=== PATIENT | female | born 1960 | race Caucasian/White ===

== ENCOUNTER → 2020-02-27 13:54 | Outpatient (BNVA) | payer OTHER, SELFPAY | PROVIDERS: PCP Internal Medicine; Referring Provider Internal Medicine; Visit Provider Physician Assistant | DX: R74.8 Abnormal levels of other serum enzymes (principal); K80.20 Calculus of gallbladder without cholecystitis without obstruction | CPT/HCPCS: 99213 ==

== ENCOUNTER 2020-03-05 10:51 | Outpatient (REF) | payer OTHER, SELFPAY ==
[2020-03-05 13:41] LABS: Basophils Absolute Auto 0.1 X10*3/uL (0.0-0.2); Basophils Percent Auto 0.7 % (0-2); Eosinophils Absolute Auto 0.2 X10*3/uL (0.0-0.4); Eosinophils Percent Auto 2.5 % (0-4); Hematocrit 43.9 % (37-47); Hemoglobin 14.1 g/dl (12.0-16.0); Imm Gran Abs Auto 0.03 X10*3/uL (0.00-0.03); Imm Gran Pct Auto 0.4 % (0.0-0.4); Lymphocytes Absolute Auto 2.3 X10*3/uL (1.2-4.9); Lymphocytes Percent Auto 33.2 % (20-40); MANUAL DIFF FLAG NO; Mean Corpuscular HGB Conc 32.1 g/dl (31.0-35.0); Mean Corpuscular Hemoglobin 29.9 pg (27.0-33.0); Mean Platelet Volume 11.3 fL (9.4-12.3); Monocytes Absolute Auto 0.4 X10*3/uL (0.1-1.2); Monocytes Percent Auto 6.5 % (2-11); Neutrophils Absolute Auto 3.8 X10*3/uL (2.0-8.3); Neutrophils Percent Auto 56.7 % (45-73); Platelet Count 227 X10*3/uL (160-400); Red Blood Count 4.72 X10*6/uL (4.20-5.50); Red Cell Distribution Width 13.7 % (11.0-16.0); White Blood Count 6.8 X10*3/uL (4.8-10.8)
[2020-03-05 14:46] LABS: Alanine Aminotransferase 33 U/L (0-31); Alkaline Phosphatase 66 U/L (39-117); Anion Gap 14 (12-20); Aspartate Amino Transferase 25 U/L (5-31); Bilirubin Total 0.3 mg/dL (0.0-1.0); Blood Urea Nitrogen 13 mg/dL (9-16); Calcium 9.7 mg/dL (8.4-10.2); Carbon Dioxide 26 mmol/L (22-29); Chloride 104 mmol/L (96-108); Estimated Glomerular Filt Rate > 60; Glucose Random 105 mg/dL (60-115); Potassium 4.4 mmol/l (3.3-5.1); Sodium 140 mmol/L (135-145); Total Protein 6.6 g/dL (6.5-8.0)
[2020-03-06 10:27] LABS: CT PCR NOT DETECTED (Not Detect.); NG PCR NOT DETECTED (Not Detect.)
[2020-03-06 13:33] LABS: BV Int Neg Control Negative (Negative); BV Int Pos Control Positive (Positive)
[2020-03-08 13:02] LABS: Anti Nuclear Antibody Screen NEGATIVE (NEGATIVE)
[2020-03-08 14:56] LABS: ANA Additional Testing NOT INDICATED
== END 2020-03-05 10:52 | disposition home or self-care (01) ==
LOC: HO.LAB 10:51
PROVIDERS: Obstetrics & Gynecology; PCP Internal Medicine; Visit Provider Physician Assistant
DX: Z01.419 Encounter for gynecological examination (general) (routine) without abnormal findings (principal); L29.2 Pruritus vulvae; N39.41 Urge incontinence; R01.1 Cardiac murmur, unspecified
CPT/HCPCS: 36415; 80053; 85025; 86038; 86039; 87480; 87491; 87510; 87591; 87660

== ENCOUNTER → 2020-03-14 13:31 | Outpatient (BNVA) | payer OTHER, SELFPAY | PROVIDERS: PCP Internal Medicine; Referring Provider Internal Medicine; Visit Provider Student in an Organized Health Care Education/Training Program | DX: M19.90 Unspecified osteoarthritis, unspecified site (principal); M79.7 Fibromyalgia; R79.82 Elevated C-reactive protein (CRP); R20.0 Anesthesia of skin | CPT/HCPCS: 99212 ==

== ENCOUNTER 2020-03-26 12:05 | Outpatient (REF) | payer OTHER, SELFPAY ==
--- NOTE | 2020-03-26 12:09 | MM_ITS ---
EXAMINATION: MM SCREENING DIGITAL BREAST TOMOSYNTHESIS, BILATERAL CLINICAL INFORMATION: Screening. Asymptomatic. The lifetime risk of breast cancer based on the Tyrer-Cuzick Model is 10%. COMPARISON: Mammography: 02/17/2012 TECHNIQUE: Digital breast tomosynthesis is performed in both the craniocaudal and mediolateral oblique views along with computer-aided detection (CAD). Synthesized 2D images are generated from the tomosynthesis. FINDINGS: There are scattered areas of fibroglandular density (ACR BI-RADS breast composition Category b). There are no significant masses, abnormal calcifications, or other abnormalities. Parenchymal pattern is similar to prior exam. Again, there are small intramammary nodes posterior upper outer right breast. MM/MM tomosynthesis screening BI IMPRESSION: No mammographic evidence of malignancy. ASSESSMENT: BI-RADS 2: Benign RECOMMENDATION: Routine annual mammography screening. This patient's information was entered into a reminder system with a target due date for their next mammogram.
--- NOTE | 2020-03-26 13:09 | XR_ITS ---
EXAMINATION: XR LUMBOSACRAL SPINE CLINICAL INFORMATION: Pain and unspecified joint COMPARISON: 01/22/2015 TECHNIQUE: AP and lateral views of the lumbar spine and lateral view of the lumbosacral junction. FINDINGS: The transitional lumbosacral anatomy with a lumbarized S1 vertebra is not as well-seen on the current exam. Slight 3 mm retrolisthesis L3 on L4. There is subtle 2 mm grade 1 anterolisthesis of L4 on L5. This appearance is similar to the prior study. Vertebral body heights are maintained without compression fracture. Minimal loss of disc height at L5-S1. Severe lower lumbar facet arthropathy. Abdominal aortic vascular calcifications. XR/XR lumbar spine 2-3V IMPRESSION: Similar appearance of degenerative changes of the lower lumbar spine. No acute osseous abnormality.
== END 2020-03-26 12:06 | disposition home or self-care (01) ==
LOC: HO.MAMMO 12:05
PROVIDERS: Absent Provider Student in an Organized Health Care Education/Training Program; PCP Internal Medicine; Visit Provider Internal Medicine
DX: Z12.31 Encounter for screening mammogram for malignant neoplasm of breast (principal); M25.50 Pain in unspecified joint
CPT/HCPCS: 72100; 77063; 77067

== ENCOUNTER 2020-04-04 10:22 | Outpatient (REF) | payer OTHER, SELFPAY ==
--- NOTE | 2020-04-04 10:25 | EMG_ITS ---
Left tibial and peroneal motor studies were performed. Left sural and superficial peroneal sensory studies were performed. Tibial H-reflex was obtained and paraspinal and limb muscles were tested. IMPRESSION: Mild axonal sensory motor peripheral neuropathy with no evidence of radiculopathy. MD MEGAN Greene/MODL / [id number]
== END 2020-04-04 10:23 | disposition home or self-care (01) ==
LOC: HO.NEURO 10:22
PROVIDERS: Visit Provider Student in an Organized Health Care Education/Training Program
DX: R20.0 Anesthesia of skin (principal)
CPT/HCPCS: 95860; 95886; 95909; 95910

== ENCOUNTER → 2020-04-23 09:36 | Outpatient (BNVA) | payer OTHER, SELFPAY | PROVIDERS: Visit Provider Physician Assistant | DX: R74.8 Abnormal levels of other serum enzymes (principal) | CPT/HCPCS: 99212 ==

== ENCOUNTER → 2020-05-21 16:30 | Outpatient (BNVA) | payer OTHER, SELFPAY | PROVIDERS: PCP Internal Medicine; Visit Provider Student in an Organized Health Care Education/Training Program | DX: Z13.89 Encounter for screening for other disorder (principal) | CPT/HCPCS: Q3014 ==

== ENCOUNTER 2020-09-03 11:57 | Outpatient (REF) | payer OTHER, SELFPAY ==
[2020-09-03 14:03] LABS: MANUAL DIFF FLAG NO
[2020-09-03 14:08] LABS: Basophils Absolute Auto 0.1 X10*3/uL (0.0-0.2); Basophils Percent Auto 0.6 % (0-2); Eosinophils Absolute Auto 0.2 X10*3/uL (0.0-0.4); Eosinophils Percent Auto 2.4 % (0-4); Hematocrit 46.7 % (37-47); Imm Gran Abs Auto 0.02 X10*3/uL (0.00-0.03); Imm Gran Pct Auto 0.2 % (0.0-0.4); Lymphocytes Absolute Auto 2.8 X10*3/uL (1.2-4.9); Lymphocytes Percent Auto 35.1 % (20-40); Mean Corpuscular HGB Conc 32.1 g/dl (31.0-35.0); Mean Corpuscular Hemoglobin 28.8 pg (27.0-33.0); Mean Corpuscular Volume 89.6 fL (80-98); Mean Platelet Volume 10.9 fL (9.4-12.3); Monocytes Absolute Auto 0.4 X10*3/uL (0.1-1.2); Monocytes Percent Auto 5.3 % (2-11); Neutrophils Absolute Auto 4.5 X10*3/uL (2.0-8.3); Neutrophils Percent Auto 56.4 % (45-73); Platelet Count 141 X10*3/uL (160-400); Red Blood Count 5.21 X10*6/uL (4.20-5.50); Red Cell Distribution Width 13.7 % (11.0-16.0)
[2020-09-03 14:39] LABS: Alanine Aminotransferase 25 U/L (0-31); Albumin Level 4.3 g/dL (3.5-5.0); Alkaline Phosphatase 95 U/L (39-117); Anion Gap 17 (12-20); Aspartate Amino Transferase 20 U/L (5-31); Bilirubin Total 0.4 mg/dL (0.0-1.0); Blood Urea Nitrogen 16 mg/dL (9-16); Calcium 9.2 mg/dL (8.4-10.2); Carbon Dioxide 23 mmol/L (22-29); Chloride 106 mmol/L (96-108); Cholesterol 259 mg/dL; Estimated Glomerular Filt Rate > 60; Glucose Random 123 mg/dL (60-115); HDL Cholesterol 51 mg/dL; LDL Cholesterol Calculated 183 mg/dl; Potassium 4.5 mmol/L (3.3-5.1); Sodium 141 mmol/L (135-145); Total Protein 7.2 g/dL (6.5-8.0); Triglycerides 126 mg/dL
== END 2020-09-03 11:58 | disposition home or self-care (01) ==
LOC: HO.HMGCLDS 11:57
PROVIDERS: PCP Internal Medicine; Visit Provider Physician Assistant
DX: R10.11 Right upper quadrant pain (principal); R74.8 Abnormal levels of other serum enzymes; K76.0 Fatty (change of) liver, not elsewhere classified
CPT/HCPCS: 36415; 80053; 80061; 85025

== ENCOUNTER → 2020-09-04 12:33 | Outpatient (BNVA) | payer OTHER, SELFPAY | PROVIDERS: PCP Internal Medicine; Visit Provider Physician Assistant | DX: R74.8 Abnormal levels of other serum enzymes (principal); K76.0 Fatty (change of) liver, not elsewhere classified | CPT/HCPCS: Q3014 ==

== ENCOUNTER 2020-12-19 14:44 | Outpatient (REF) | payer OTHER, SELFPAY ==
--- NOTE | ~2020-12-19 | XR_ITS ---
EXAMINATION: XR KNEE, RIGHT CLINICAL INFORMATION: Right knee pain. COMPARISON: 06/02/2019 TECHNIQUE: 3 views of the right knee. FINDINGS: There is no evidence of acute fracture or dislocation of the right knee. No right knee effusion appreciated. Right knee joint spaces are maintained. There is minor spurring undersurface of the patella about the medial and lateral facets. XR/XR knee RT 3V IMPRESSION: Mild degenerative change patellofemoral joint.
== END 2020-12-19 14:45 | disposition home or self-care (01) ==
LOC: HO.XRAY 14:44
PROVIDERS: PCP Internal Medicine; Visit Provider Student in an Organized Health Care Education/Training Program
DX: M79.7 Fibromyalgia (principal); M25.561 Pain in right knee; M25.50 Pain in unspecified joint; Z79.899 Other long term (current) drug therapy
CPT/HCPCS: 73562; 99212

== ENCOUNTER 2021-02-07 11:01 | Outpatient (REF) | payer OTHER, SELFPAY ==
[2021-02-07 14:05] LABS: Imm Gran Abs Auto 0.02 X10*3/uL (0.00-0.03); Imm Gran Pct Auto 0.3 % (0.0-0.4); MANUAL DIFF FLAG SCAN; PLT CLUMP 1; SCAN SMEAR FLAG 1
[2021-02-07 14:06] LABS: Basophils Absolute Auto 0.1 X10*3/uL (0.0-0.2); Basophils Percent Auto 0.7 % (0-2); Eosinophils Absolute Auto 0.2 X10*3/uL (0.0-0.4); Eosinophils Percent Auto 2.8 % (0-4); Hematocrit 44.9 % (37-47); Hemoglobin 14.3 g/dl (12.0-16.0); Lymphocytes Absolute Auto 1.9 X10*3/uL (1.2-4.9); Lymphocytes Percent Auto 25.9 % (20-40); Mean Corpuscular HGB Conc 31.8 g/dl (31.0-35.0); Mean Corpuscular Hemoglobin 28.8 pg (27.0-33.0); Mean Corpuscular Volume 90.5 fL (80-98); Monocytes Absolute Auto 0.4 X10*3/uL (0.1-1.2); Monocytes Percent Auto 4.8 % (2-11); Neutrophils Absolute Auto 4.8 X10*3/uL (2.0-8.3); Neutrophils Percent Auto 65.5 % (45-73); Red Blood Count 4.96 X10*6/uL (4.20-5.50); Red Cell Distribution Width 13.9 % (11.0-16.0); White Blood Count 7.3 X10*3/uL (4.8-10.8)
[2021-02-07 14:11] LABS: Estimated Average Glucose 126 mg/dL; Hemoglobin A1C 152.0519 umol/L
[2021-02-07 14:16] LABS: Alanine Aminotransferase 26 U/L (0-31); Albumin Level 4.2 g/dL (3.5-5.0); Alkaline Phosphatase 80 U/L (39-117); Anion Gap 13 (12-20); Aspartate Amino Transferase 21 U/L (5-31); Bilirubin Direct < 0.2 mg/dL (0.0-0.5); Bilirubin Total 0.4 mg/dL (0.0-1.0); Blood Urea Nitrogen 12 mg/dL (9-16); Calcium 9.7 mg/dL (8.4-10.2); Carbon Dioxide 25 mmol/L (22-29); Chloride 108 mmol/L (96-108); Cholesterol 248 mg/dL; Estimated Glomerular Filt Rate > 60; Glucose Fasting 121 mg/dL (60-99); HDL Cholesterol 50 mg/dL; Iron 63 mcg/dL (30-160); LDL Cholesterol Calculated 177 mg/dl; Percent Iron Saturation 23 % (15-50); Potassium 4.3 mmol/L (3.3-5.1); Sodium 142 mmol/L (135-145); Total Iron Binding Capacity 277 mcg/dL (228-428); Triglycerides 109 mg/dL; Unsaturated Iron Binding 214 ug/dL
[2021-02-07 14:39] LABS: Vitamin D 25-OH Total 29.9 ng/mL (>30)
[2021-02-07 15:14] LABS: SLIDE REVIEW VERIFIED
[2021-02-15 19:02] LABS: FIB-ALT 22 U/L (6-29); FIB-Alpha-2-Macroglobulin 259 mg/dL (106-279); FIB-Apolipoprotein A1 146 mg/dL (101-198); FIB-GGT 13 U/L (3-65); FIB-Haptoglobin 249 mg/dL (43-212); FIB-Total Bilirubin 0.3 mg/dL (0.2-1.2); Liver Fibrosis Score 0.13; Liver Fibrosis Stage F0; Nec Inflam Act Grade A0; Nec Inflam Act Score 0.07
== END 2021-02-07 11:02 | disposition home or self-care (01) ==
LOC: HO.HMGCLDS 11:01
PROVIDERS: PCP Internal Medicine; Visit Provider Physician Assistant
DX: R10.11 Right upper quadrant pain (principal); E66.01 Morbid (severe) obesity due to excess calories; E78.5 Hyperlipidemia, unspecified; I10 Essential (primary) hypertension; K76.0 Fatty (change of) liver, not elsewhere classified; R73.01 Impaired fasting glucose; Z78.0 Asymptomatic menopausal state; R74.8 Abnormal levels of other serum enzymes; R74.01 Elevation of levels of liver transaminase levels; B19.20 Unspecified viral hepatitis C without hepatic coma
CPT/HCPCS: 36415; 80048; 80061; 80076; 81596; 82306; 83036; 83540; 85025

== ENCOUNTER → 2021-02-11 09:25 | Outpatient (BNVA) | payer OTHER, SELFPAY | PROVIDERS: PCP Internal Medicine; Referring Provider Internal Medicine; Visit Provider Physician Assistant | DX: Z13.89 Encounter for screening for other disorder (principal) | CPT/HCPCS: Q3014 ==

== ENCOUNTER → 2021-08-11 14:27 | Outpatient (BNVA) | payer OTHER, SELFPAY | PROVIDERS: PCP Internal Medicine; Referring Provider Internal Medicine; Visit Provider Physician Assistant | DX: Z12.11 Encounter for screening for malignant neoplasm of colon (principal); K76.0 Fatty (change of) liver, not elsewhere classified | CPT/HCPCS: 99212 ==

== ENCOUNTER 2021-08-22 16:44 | Emergency (ER) | payer OTHER, SELFPAY ==
--- NOTE | ~2021-08-22 | XR_ITS ---
EXAMINATION: XR chest 1V CLINICAL INFORMATION: Reason for Exam chest pain COMPARISON: Chest radiograph 01/11/2020 TECHNIQUE: One view of the chest XR/XR chest 1V FINDINGS/IMPRESSION: Clear lungs. No pneumothorax. No pleural effusion. Normal cardiomediastinal silhouette.
--- NOTE | ~2021-08-22 | US_ITS ---
EXAMINATION: US VENOUS ULTRASOUND WITH DOPPLER LOWER EXTREMITY, BILATERAL CLINICAL INFORMATION: Pain, swelling COMPARISON: None TECHNIQUE: Ultrasound of the deep veins is performed from the hip to the calf with compression sonography and color and pulse Doppler assessment. Spectral analysis with color-flow imaging is performed. FINDINGS: RIGHT: There is normal venous compression and respiratory variation and augmented flow. The visualized common femoral vein, superficial femoral vein, profunda femoral vein, popliteal vein, and the trifurcation region shows no evidence of deep venous thrombosis. There is no significant popliteal fossa cyst. LEFT: There is normal venous compression and respiratory variation and augmented flow. The visualized common femoral vein, superficial femoral vein, profunda femoral vein, popliteal vein, and the trifurcation region shows no evidence of deep venous thrombosis. There is no significant popliteal fossa cyst. If the patient's symptoms persist, followup ultrasound in 5 days 7 days might be of value to exclude proximal propagation from a non-visualized calf vein. US/US venous duplex LE BI IMPRESSION: No DVT demonstrated in the bilateral lower extremities.
--- NOTE | 2021-08-22 17:06 | ECG_ITS ---
Test Reason : CHEST TIGHTNESS Blood Pressure : / mmHG Vent. Rate : 092 BPM Atrial Rate : 092 BPM P-R Int : 140 ms QRS Dur : 076 ms QT Int : 356 ms P-R-T Axes : 029 -09 064 degrees QTc Int : 440 ms Normal sinus rhythm Normal ECG When compared with ECG of 27-SEP-2017 19:47, No significant change was found Referred By: Generic ED Physician Electronically Signed By:ELMA AUSTIN MD
[2021-08-22 17:09] VITALS: BP 154/89; PULSE 92; RESP 22; TEMP 36.1; O2SAT 96; BMI 42.9
[2021-08-22 17:47] LABS: MANUAL DIFF FLAG NO
[2021-08-22 17:49] LABS: Appearance Urine CLEAR; Color Urine STRAW; Glucose Urine UA NEG (NEG); Leukocyte Esterase Urine NEG (NEG); Nitrite Urine NEG (NEG); Specific Gravity - Urine <= 1.005 (1.005-1.025); Urine Blood NEG (NEG); Urine Ketones NEG (NEG); Urine Protein NEG (NEG-TRACE)
[2021-08-22 18:04] LABS: Basophils Absolute Auto 0.1 X10*3/uL (0.0-0.2); Basophils Percent Auto 0.6 % (0-2); Eosinophils Absolute Auto 0.2 X10*3/uL (0.0-0.4); Eosinophils Percent Auto 2.1 % (0-4); Hematocrit 46.1 % (37.0-47.0); Hemoglobin 14.7 g/dl (12.0-16.0); Imm Gran Abs Auto 0.07 X10*3/uL (0.00-0.03); Imm Gran Pct Auto 0.8 % (0.0-0.4); Lymphocytes Absolute Auto 2.4 X10*3/uL (1.2-4.9); Lymphocytes Percent Auto 28.1 % (20-40); Mean Corpuscular HGB Conc 31.9 g/dl (31.0-35.0); Mean Corpuscular Hemoglobin 28.5 pg (27.0-33.0); Mean Corpuscular Volume 89.3 fL (80.0-98.0); Mean Platelet Volume 10.3 fL (9.4-12.3); Monocytes Absolute Auto 0.5 X10*3/uL (0.1-1.2); Monocytes Percent Auto 5.8 % (2-11); Neutrophils Absolute Auto 5.4 x10*3/uL (2.0-8.3); Neutrophils Percent Auto 62.6 % (45-73); Platelet Count 199 X10*3/uL (160-400); Red Blood Count 5.16 X10*6/uL (4.20-5.50); Red Cell Distribution Width 13.6 % (11.0-16.0); White Blood Count 8.6 X10*3/uL (4.8-10.8)
[2021-08-22 18:13] LABS: Anion Gap 15 (12-20); Blood Urea Nitrogen 15 mg/dL (9-16); Calcium 9.8 mg/dL (8.4-10.2); Carbon Dioxide 29 mmol/L (22-29); Chloride 99 mmol/L (96-108); Creatinine Clr Calc Pharmacy 100.7; Estimated Glomerular Filt Rate > 60; Glucose Random 126 mg/dL (60-115); Sodium 139 mmol/L (135-145)
[2021-08-22 18:16] LABS: Bacteria Urine 1+ /LPF; RBC Urine 0 /HPF (0); Squamous Epithelial Cell Urine 1+ /LPF; WBC Urine 0-2 /HPF (0-4)
[2021-08-22 18:21] LABS: Troponin-I High Sensitivity < 3.5 ng/L (<3.5-17.0)
--- NOTE | 2021-08-22 22:34 | ED.CHESTPAIN ---
HPI - Chest Pain General Chief Complaint: Chest Pain Stated Complaint: tightness in chest and swollen legs Time Seen by Provider: 08/22/21 22:34 Source: patient Mode of arrival: ambulatory Limitations: no limitations History of Present Illness HPI narrative: very stressed out, tried to take extra dose of HCTZ to get swelling off it didn't help MD complaint: chest pain (tightness, lower leg swelling) Pertinent past history: other (mom is sick she is taking care of her has to walk a lot more) Onset (ago): day(s) (2) Timing of current episode: constant Prior episodes: No Onset: during rest Pain location: substernal Pain radiation: none Severity: mild Quality: tightness Relieving factors: nothing Exacerbating factors: stress Context: other (mom is sick has to walk a lot more and be on her feet) Associated symptoms: leg swelling Treatment prior to arrival: other (HCTZ 50mg) Related Data Home Medications Medication Instructions Recorded Confirmed milk thistle 150 mg capsule 300 mg PO DAILY 04/23/20 02/11/21 Previous Rx's Medication Instructions Recorded triamcinolone acetonide 0.1 % 1 applic TOPICAL BID #15 g 03/05/20 topical ointment cholecalciferol (vitamin D3) 1,250 1,250 mcg PO QWEEK #12 cap 02/19/21 mcg (50,000 unit) capsule ibuprofen 600 mg tablet 600 mg PO Q8H PRN #30 tab 03/17/21 tramadol 50 mg tablet 50 mg PO TID #90 tab 07/16/21 hydrochlorothiazide 25 mg tablet 25 mg PO DAILY #90 tab 07/29/21 zolpidem 10 mg tablet 10 mg PO BEDTIME PRN #30 tab 07/30/21 furosemide 20 mg tablet (Lasix) 20 mg PO DAILY 3 Days #3 tab 08/23/21 hydrocortisone 1 % topical cream 1 appl TOPICAL TID PRN #28.35 g 08/23/21 (Anti-Itch (hydrocortisone)) Allergies Allergy/AdvReac Type Severity Reaction Status Date / Time naproxen [Naproxen] Allergy Unknown joint pain Verified 08/11/21 14:29 Clindamycin HCl AdvReac Unknown diarrhea Verified 08/11/21 14:29 penicillin V AdvReac Unknown yeast Verified 08/11/21 14:29 infections Review of Systems Review of Systems: Constitutional : No Weight loss, No Fever, No Chills ENT/Mouth : No sore throat, No Rhinorrhea Eyes: No Eye Pain, No Swelling Cardiovascular : pos Chest Pain, no SOB, no Dyspnea on Exertion, No Orthopnea, pos Edema, No Palpitations Respiratory : No Cough, No Sputum Gastrointestinal : no Nausea, No Vomiting, No Diarrhea, No abdominal Pain, No Hematochezia, No Melena Genitourinary : No Dysuria, No Urinary Frequency Musculoskeletal : No joint pain, No Myalgias, No Joint Swelling Skin : No Skin Lesions, No rash Neuro : No Weakness, No Numbness, No Dizziness, No Headache Psych : No Anxiety/Panic, No Depression Heme/Lymph: No Bruising, No Lymphadenopathy Endocrine : No Polyuria, No Polydipsia All other systems reviewed and are negative [facility] Past Medical History Attestation statement: The following information was validated with the patient. Medical History Arthritis Carpal tunnel syndrome Depression with anxiety Dyslipidemia Ectopic Elevated C-reactive protein (CRP) Elevated liver enzymes Fibromyalgia HTN (hypertension) Impaired fasting glucose Morbid obesity due to excess calories Sciatica Surgical History History of appendectomy History of carpal tunnel surgery of right wrist Family History Family History Father HTN (hypertension) Heart disease Mother HTN (hypertension) [place] Brother Substance use disorder Social History Social History Household Members: Spouse Housing: House Alcohol intake: current Alcohol intake frequency: holidays/special occasions only Patient Tobacco Use Status: Former Tobacco user Tobacco use type: Cigarette e-Cigarette/Vaping Use: Never Used Second Hand Smoke Exposure: No Advance Directives: No Advance Directives Information Provided: Yes Current occupational status: employed and disabled 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 Oriented X3. No acute distress. Anxious Eyes: Pupils equal, round and reactive to light. ENT: Pharynx normal. Neck: Normal inspection. Neck supple. CVS: Normal heart rate and rhythm. Pulses normal. Respiratory: No respiratory distress. Breath sounds normal. Abdomen: Soft and non-tender. Skin: Skin warm and dry. Normal skin color. Normal skin turgor. Extremities: trace pitting lower extremity edema. No calf ttp Neuro: Oriented X 3. No motor deficit. No sensory deficit. Course Course Course Narrative: two troponins negative, BNP negative, US negative stable for DC prior to DC c/o axilla rash itchy and red from new deodorant mild both axilla - contact dermatitis will Rx ointment MDM - Chest Pain MDM Narrative Medical decision making narrative: 61 yo female with hx of anxiety, HLD, fatty liver, HTN here with c/o 2 days of chest tightness, stress, LE edema from walking a lot at this time - her chest pain is tightness her initial EKG is normal and trop is negative, will obtain repeat troponin and BNP though I suspect her LE edema is from increased walking which is new for her. She is in no distress at this time. Will obtain US to r/o DVT though again likely due to new walking. Her chest pain not worsened with exertion. Dispo per results and repeat trop/DVT study. Will DC home with a few doses of lasix. Lab Data Result diagrams: 08/22/21 17:22 08/22/21 17:22 Labs: Lab Results 08/22/21 08/22/21 08/22/21 Range/Units 17:22 17:22 17:22 WBC 8.6 (4.8-10.8) X10*3/uL RBC 5.16 (4.20-5.50) X10*6/uL Hgb 14.7 (12.0-16.0) g/dl Hct 46.1 (37.0-47.0) % MCV 89.3 (80.0-98.0) fL MCH 28.5 (27.0-33.0) pg MCHC 31.9 (31.0-35.0) g/dl RDW 13.6 (11.0-16.0) % Plt Count 199 (160-400) X10*3/uL MPV 10.3 (9.4-12.3) fL Immature Gran % (Auto) 0.8 H (0.0-0.4) % Neut % (Auto) 62.6 (45-73) % Lymph % (Auto) 28.1 (20-40) % Gregg % (Auto) 5.8 (2-11) % Eos % (Auto) 2.1 (0-4) % Baso % (Auto) 0.6 (0-2) % Lymph # (Auto) 2.4 (1.2-4.9) X10*3/uL Gregg # (Auto) 0.5 (0.1-1.2) X10*3/uL Eos # (Auto) 0.2 (0.0-0.4) X10*3/uL Baso # (Auto) 0.1 (0.0-0.2) X10*3/uL Abs Immat Gran (auto) 0.07 H (0.00-0.03) X10*3/uL Absolute Neuts (auto) 5.4 (2.0-8.3) x10*3/uL Absolute Nucleated RBC 0.000 (0.0-0.012) X10*3/uL Nucleated RBC % (auto) 0.0 (0.0-0.2) /100WBC Sodium 139 (135-145) mmol/L Potassium 4.0 (3.3-5.1) mmol/L Chloride 99 (96-108) mmol/L Carbon Dioxide 29 (22-29) mmol/L Anion Gap 15 (12-20) BUN 15 (9-16) mg/dL Creatinine 0.75 (0.5-1.4) mg/dL Estim Creat Clear Calc 100.7 Estimated GFR > 60 Random Glucose 126 H (60-115) mg/dL Calcium 9.8 (8.4-10.2) mg/dL Troponin I High Sens < 3.5 (<3.5-17.0) ng/L B-Natriuretic Peptide (<100) pg/mL Urine Color Urine Appearance Urine pH (5.0-8.0) Ur Specific [place] (1.005-1.025) Urine Protein (NEG-TRACE) MG/DL Urine Glucose (UA) (NEG) MG/DL Urine Ketones (NEG) MG/DL Urine Blood (NEG) Urine Nitrite (NEG) Ur Leukocyte Esterase (NEG) Urine RBC (0) /HPF Urine WBC (0-4) /HPF Ur Squamous Epith Cells /LPF Urine Bacteria /LPF 08/22/21 08/22/21 Range/Units 17:32 23:31 WBC (4.8-10.8) X10*3/uL RBC (4.20-5.50) X10*6/uL Hgb (12.0-16.0) g/dl Hct (37.0-47.0) % MCV (80.0-98.0) fL MCH (27.0-33.0) pg MCHC (31.0-35.0) g/dl RDW (11.0-16.0) % Plt Count (160-400) X10*3/uL MPV (9.4-12.3) fL Immature Gran % (Auto) (0.0-0.4) % Neut % (Auto) (45-73) % Lymph % (Auto) (20-40) % Gregg % (Auto) (2-11) % Eos % (Auto) (0-4) % Baso % (Auto) (0-2) % Lymph # (Auto) (1.2-4.9) X10*3/uL Gregg # (Auto) (0.1-1.2) X10*3/uL Eos # (Auto) (0.0-0.4) X10*3/uL Baso # (Auto) (0.0-0.2) X10*3/uL Abs Immat Gran (auto) (0.00-0.03) X10*3/uL Absolute Neuts (auto) (2.0-8.3) x10*3/uL Absolute Nucleated RBC (0.0-0.012) X10*3/uL Nucleated RBC % (auto) (0.0-0.2) /100WBC Sodium (135-145) mmol/L Potassium (3.3-5.1) mmol/L Chloride (96-108) mmol/L Carbon Dioxide (22-29) mmol/L Anion Gap (12-20) BUN (9-16) mg/dL Creatinine (0.5-1.4) mg/dL Estim Creat Clear Calc Estimated GFR Random Glucose (60-115) mg/dL Calcium (8.4-10.2) mg/dL Troponin I High Sens < 3.5 (<3.5-17.0) ng/L B-Natriuretic Peptide 15 (<100) pg/mL Urine Color STRAW Urine Appearance CLEAR Urine pH 7.0 (5.0-8.0) Ur Specific [place] <= 1.005 (1.005-1.025) Urine Protein NEG (NEG-TRACE) MG/DL Urine Glucose (UA) NEG (NEG) MG/DL Urine Ketones NEG (NEG) MG/DL Urine Blood NEG (NEG) Urine Nitrite NEG (NEG) Ur Leukocyte Esterase NEG (NEG) Urine RBC 0 (0) /HPF Urine WBC 0-2 (0-4) /HPF Ur Squamous Epith Cells 1+ /LPF Urine Bacteria 1+ /LPF ECG Data ECG #1: Attestation: I personally reviewed and interpreted this ECG as follows: ECG interpretation date: 08/22/21 ECG interpretation time: 22:35 Interpretation: Rate: 92 Rhythm: NSR [place]: left Normal P waves. Normal BEAU. Normal QRS complex. ST T wave : no STACY, inverted aVL qTC: normal prior studies: no change from 2018 The study has been interpreted contemporaneously by me. . Discharge Plan Discharge Clinical Impression: Atypical chest pain, Leg edema Patient Disposition: Home, Self-Care Instructions: Chest Pain (ED), Edema (ED) Additional Instructions: return to ED for any worsening symptoms or concerns no DVT (blood clot) xray normal, EKG and two blood tests for heart were normal, heart failure markers were normal Prescriptions: New furosemide [Lasix] 20 mg tablet 20 mg PO DAILY 3 Days Qty: 3 0RF hydrocortisone [Anti-Itch (HC)] 1 % cream 1 appl topical TID PRN (Reason: rash) Qty: 28.35 0RF No Action cholecalciferol (vitamin D3) 1,250 mcg (50,000 unit) capsule 1,250 mcg PO QWEEK Qty: 12 0RF tramadol 50 mg tablet 50 mg PO TID Qty: 90 1RF hydrochlorothiazide 25 mg tablet 25 mg PO DAILY Qty: 90 3RF zolpidem 10 mg tablet 10 mg PO BEDTIME PRN (Reason: insomnia) Qty: 30 0RF ibuprofen 600 mg tablet 600 mg PO Q8H PRN (Reason: joint pain) Qty: 30 1RF triamcinolone acetonide 0.1 % ointment 1 applic topical BID Qty: 15 0RF milk thistle 150 mg capsule 300 mg PO DAILY 0RF Rx Instructions: give with meal/snack Referrals: Saige Grewal MD [Primary Care Provider] - 3 days (if not better) Discharge Date/Time: 08/23/21 00:17
[2021-08-22 22:43] VITALS: BP 142/64; PULSE 86; RESP 16; TEMP 36.8; O2SAT 96
[2021-08-22 23:32] VITALS: BP 145/69; PULSE 86; RESP 14; O2SAT 96
[2021-08-22 23:58] LABS: B Type Natriuretic Peptide 15 pg/mL (<100); Troponin-I High Sensitivity < 3.5 ng/L (<3.5-17.0)
== END 2021-08-23 00:17 | disposition home or self-care (01) ==
PROVIDERS: Emergency Provider Emergency Medicine; PCP Internal Medicine
DX: R07.89 Other chest pain (principal); R60.0 Localized edema; Z79.899 Other long term (current) drug therapy; Z87.891 Personal history of nicotine dependence
CPT/HCPCS: 36415; 71045; 80048; 81001; 83880; 84484; 85025; 93005; 93970; 99284

== ENCOUNTER → 2021-08-25 14:13 | Outpatient (BNVA) | payer OTHER, SELFPAY | PROVIDERS: PCP Internal Medicine; Visit Provider Nurse Practitioner Family | DX: M25.561 Pain in right knee (principal); M79.7 Fibromyalgia | CPT/HCPCS: 99212 ==

== ENCOUNTER → 2021-09-29 12:30 | Outpatient (BNVA) | payer OTHER, SELFPAY | PROVIDERS: PCP Internal Medicine; Visit Provider Orthopaedic Surgery | DX: M25.561 Pain in right knee (principal); R73.01 Impaired fasting glucose | CPT/HCPCS: 20610; 99212; J1100 ==

== ENCOUNTER 2021-12-02 10:25 | Outpatient (REF) | payer OTHER, SELFPAY ==
--- NOTE | ~2021-12-02 | US_ITS ---
EXAMINATION: US COMPLETE ABDOMEN WITH LIVER ELASTOGRAPHY CLINICAL INFORMATION: Elevated LFTs. COMPARISON: Ultrasound of the abdomen 01/11/2020. TECHNIQUE: Real-time imaging of the abdominal viscera. Noninvasive ultrasound liver fibrosis assessment is performed using Lynn ElastPQ point quantification shear wave elastography (2D-SWE) with a C5-2 MHz transducer. Multiple elastography samples are obtained. FINDINGS: PANCREAS: The visualized pancreatic head and body are normal in appearance. The remainder of the pancreas is obscured from visualization by the overlying bowel gas. ABDOMINAL AORTA: The proximal, middle, and distal aortic segments are normal in caliber. INFERIOR VENA CAVA: Visualized portions are normal. LIVER: The liver demonstrates normal size, contour and increased echogenicity. No focal lesion or intrahepatic biliary duct dilatation. The right lobe measures 16.3 cm in length. The left lobe measures 8.8 cm in length. Portal flow is hepatopetal. Shear wave liver elastography median stiffness is 1.42 m/s (reference: normal median stiffness is 1.3 m/s or less). IQR/median stiffness to assess sampling precision is 0.14 (reference: good quality data set is IQR/median stiffness of 0.15 or less). GALLBLADDER: There are multiple mobile echogenic gallstones without wall thickening or pericholecystic fluid collection. COMMON BILE DUCT: Normal in caliber measuring 0.3 cm in diameter. RIGHT KIDNEY: Normal. No hydronephrosis. No renal calculi or focal parenchymal lesions. The kidney measures 11.9 cm in maximum dimension. There is likely duplex collecting system. LEFT KIDNEY: Normal. No hydronephrosis. No renal calculi or focal parenchymal lesions. The kidney measures 12.9 cm in maximum dimension. There is likely duplex collecting system. SPLEEN: Normal. The spleen measures 10.4 cm in maximum dimension. FREE FLUID: None. US/US abdomen comp w elastography IMPRESSION: Hepatic steatosis without focal lesion. Cholelithiasis without wall thickening. Bilateral duplex renal collecting system. Liver elastography: Median liver stiffness 1.42 m/s corresponding to cACLD (ruled out). REFERENCE: Society of Radiologists in Ultrasound Liver Stiffness Thresholds (2019): LIVER STIFFNESS THRESHOLDS: *Liver Stiffness equal or less than 1.3 m/s: High probability of being normal. *Liver Stiffness less than 1.7 m/s: In the absence of other known clinical signs, rules out compensated advanced chronic liver disease. *Liver Stiffness 1.7-2.1 m/s: Suggestive of compensated advanced chronic liver disease but need further test for confirmation. *Liver Stiffness over 2.1 m/s: Rules in compensated advanced chronic liver disease. *Liver Stiffness over 2.4 m/s: Suggestive of clinically significant portal hypertension. QUALITY OF DATA SET: *IQR/Median value equal or less than 0.15 implies a quality data set. *IQR/Median value over 0.15 implies a poor quality data set. SIGNIFICANT CHANGE FROM PRIOR EXAM: Significant change if liver stiffness measurement is 10% or greater from prior exam. OTHER CONSIDERATIONS: The stage of liver fibrosis may be overestimated in the setting of acute hepatitis, liver inflammation, elevated liver function tests, hepatic vascular congestion, obstructive cholestasis, non-fasting state, and infiltrative diseases such as amyloidosis and lymphoma. In some patients with NAFLD, the liver stiffness thresholds for compensated advanced chronic liver disease may be lower. In causes other than viral hepatitis and NAFLD, liver stiffness thresholds are not well established.
== END 2021-12-02 10:26 | disposition home or self-care (01) ==
LOC: HO.US 10:25
PROVIDERS: Visit Provider Physician Assistant
DX: R74.8 Abnormal levels of other serum enzymes (principal); Z12.11 Encounter for screening for malignant neoplasm of colon
CPT/HCPCS: 76705; 76981

== ENCOUNTER 2022-02-13 12:54 | Outpatient (REF) | payer OTHER, SELFPAY ==
[2022-02-13 14:03] LABS: MANUAL DIFF FLAG NO
[2022-02-13 14:20] LABS: Basophils Percent Auto 0.6 % (0-2); Eosinophils Absolute Auto 0.2 X10*3/uL (0.0-0.4); Eosinophils Percent Auto 2.4 % (0-4); Hematocrit 43.2 % (37.0-47.0); Hemoglobin 13.8 g/dl (12.0-16.0); Imm Gran Abs Auto 0.02 X10*3/uL (0.00-0.03); Imm Gran Pct Auto 0.3 % (0.0-0.4); Lymphocytes Absolute Auto 2.1 X10*3/uL (1.2-4.9); Lymphocytes Percent Auto 30.3 % (20-40); Mean Corpuscular HGB Conc 31.9 g/dl (31.0-35.0); Mean Corpuscular Hemoglobin 28.7 pg (27.0-33.0); Mean Corpuscular Volume 89.8 fL (80.0-98.0); Monocytes Absolute Auto 0.4 X10*3/uL (0.1-1.2); Monocytes Percent Auto 5.1 % (2-11); Neutrophils Absolute Auto 4.3 x10*3/uL (2.0-8.3); Neutrophils Percent Auto 61.3 % (45-73); Platelet Count 183 X10*3/uL (160-400); Red Blood Count 4.81 X10*6/uL (4.20-5.50)
[2022-02-13 14:55] LABS: Alanine Aminotransferase 26 U/L (0-31); Albumin Level 4.1 g/dL (3.5-5.0); Alkaline Phosphatase 83 U/L (39-117); Anion Gap 16 (12-20); Aspartate Amino Transferase 21 U/L (5-31); Bilirubin Total 0.4 mg/dL (0.0-1.0); Blood Urea Nitrogen 12 mg/dL (9-16); C Reactive Protein 1.85 mg/dL (< or = 0.50); Calcium 9.5 mg/dL (8.4-10.2); Carbon Dioxide 26 mmol/L (22-29); Chloride 105 mmol/L (96-108); Estimated Glomerular Filt Rate > 60; Glucose Random 134 mg/dL (60-115); Potassium 4.2 mmol/L (3.3-5.1); Sodium 143 mmol/L (135-145); Total Protein 6.9 g/dL (6.5-8.0)
[2022-02-13 15:15] LABS: Thyroid Stimulating Hormone 1.42 uIU/mL (0.32-4.0)
== END 2022-02-13 12:55 | disposition home or self-care (01) ==
LOC: HO.HMGCLDS 12:54
PROVIDERS: Absent Provider Internal Medicine; PCP Internal Medicine; Visit Provider Physician Assistant
DX: K59.09 Other constipation (principal); R79.82 Elevated C-reactive protein (CRP); K76.0 Fatty (change of) liver, not elsewhere classified
CPT/HCPCS: 36415; 80053; 84443; 85025; 86140

== ENCOUNTER → 2022-02-16 13:59 | Outpatient (BNVA) | payer OTHER, SELFPAY | PROVIDERS: PCP Internal Medicine; Visit Provider Physician Assistant | DX: Z12.11 Encounter for screening for malignant neoplasm of colon (principal); Q62.5 Duplication of ureter; K76.0 Fatty (change of) liver, not elsewhere classified | CPT/HCPCS: 99212 ==

== ENCOUNTER → 2022-03-03 13:48 | Outpatient (BNVA) | payer OTHER, SELFPAY | PROVIDERS: PCP Internal Medicine; Visit Provider Nurse Practitioner Family | DX: M79.7 Fibromyalgia (principal); M17.11 Unilateral primary osteoarthritis, right knee; G62.9 Polyneuropathy, unspecified | CPT/HCPCS: 99212 ==

== ENCOUNTER 2022-03-23 14:30 | Outpatient (REF) | payer OTHER, SELFPAY ==
[2022-03-23 16:32] LABS: Estimated Average Glucose 128 mg/dL; Hemoglobin A1c % 6.1 %
[2022-03-23 16:35] LABS: Cholesterol 257 mg/dL; HDL Cholesterol 48 mg/dL; LDL Cholesterol Calculated 185 mg/dl; Triglycerides 120 mg/dL
[2022-03-24 13:08] LABS: Amphetamine Screen Urine Not Detected (Not Detect); Barbiturates, Urine Not Detected (Not Detect); Benzodiazepines Screen Urine Not Detected (Not Detect); Cannabinoid Screen Urine Not Detected (Not Detect); Cocaine Screen Urine Not Detected (Not Detect); Fentanyl, urine Not Detected (Not Detect); Opiate Screen Urine Not Detected (Not Detect)
[2022-03-24 13:30] LABS: Phencyclidine Screen Urine Not Detected (Not Detect)
== END 2022-03-23 14:31 | disposition home or self-care (01) ==
LOC: HO.HMGCLDS 14:30
PROVIDERS: Absent Provider Nurse Practitioner Family; PCP Internal Medicine; Visit Provider Internal Medicine
DX: R73.01 Impaired fasting glucose (principal); E66.01 Morbid (severe) obesity due to excess calories; E78.5 Hyperlipidemia, unspecified; Z51.81 Encounter for therapeutic drug level monitoring; Z79.899 Other long term (current) drug therapy
CPT/HCPCS: 36415; 80061; 80307; 83036

== ENCOUNTER → 2022-08-10 14:27 | Outpatient (BNVA) | payer OTHER, SELFPAY | PROVIDERS: PCP Internal Medicine; Visit Provider Psychiatry & Neurology Neurology | DX: G57.12 Meralgia paresthetica, left lower limb (principal) | CPT/HCPCS: 99202 ==

== ENCOUNTER → 2022-09-01 13:35 | Outpatient (BNVA) | payer OTHER, SELFPAY | PROVIDERS: PCP Internal Medicine; Visit Provider Nurse Practitioner Family | DX: M79.7 Fibromyalgia (principal); M17.11 Unilateral primary osteoarthritis, right knee; M79.671 Pain in right foot | CPT/HCPCS: 99212 ==

== ENCOUNTER 2022-09-09 17:08 | Emergency (ER) | payer OTHER, SELFPAY ==
--- NOTE | ~2022-09-09 | XR_ITS ---
EXAMINATION: XR CHEST CLINICAL INFORMATION: Reason for Exam chest pain COMPARISON: Chest radiograph 08/22/2021 TECHNIQUE: One view of the chest FINDINGS: Clear lungs. No pneumothorax or pleural effusion. Normal cardiomediastinal silhouette. XR/XR chest 1V IMPRESSION: * Clear lungs.
[2022-09-09 17:14] VITALS: BP 175/94; BP 183/63; PULSE 84; PULSE 92; RESP 20; TEMP 36.8; O2SAT 97; O2SAT 99; BMI 39.3
--- NOTE | 2022-09-09 17:24 | ECG_ITS ---
Test Reason : CP Blood Pressure : / mmHG Vent. Rate : 077 BPM Atrial Rate : 077 BPM P-R Int : 132 ms QRS Dur : 072 ms QT Int : 384 ms P-R-T Axes : 021 002 044 degrees QTc Int : 434 ms Normal sinus rhythm Normal ECG When compared with ECG of 22-AUG-2021 17:08, No significant change was found Referred By: Richard Wong Electronically Signed By:Adalid Lucia
--- NOTE | 2022-09-09 17:28 | ED.CHESTPAIN ---
HPI - Chest Pain General Chief Complaint: Chest Pain Stated Complaint: CHEST PAIN Time Seen by Provider: 09/09/22 17:22 Source: patient Mode of arrival: ambulatory Limitations: no limitations History of Present Illness HPI narrative: 62-year-old female history of anxiety states she got an argument with a friend and then started having chest pressure. States the symptoms have since resolved she was given aspirin by EMS but her symptoms had already resolved she did have some lightheadedness as well she denies fevers chills cough nausea vomiting or diarrhea she denies any recent illness. She states she has never had this problem in the past. MD complaint: chest pain and chest heaviness Related Data Home Medications Medication Instructions Recorded Confirmed milk thistle 150 mg capsule 300 mg PO DAILY 04/23/20 08/10/22 cholecalciferol (vitamin D3) 250 250 mcg PO QWEEK 08/25/21 08/10/22 mcg (10,000 unit) capsule naproxen sodium 220 mg capsule 220 mg PO BID PRN 03/03/22 08/10/22 Previous Rx's Medication Instructions Recorded ibuprofen 600 mg tablet 600 mg PO Q8H PRN joint pain #30 03/17/21 tabs zolpidem 10 mg tablet 10 mg PO BEDTIME PRN insomnia #30 08/08/22 tabs tramadol 50 mg tablet 50 mg PO TID #90 tabs 08/13/22 Allergies Allergy/AdvReac Type Severity Reaction Status Date / Time Clindamycin HCl AdvReac Unknown diarrhea Verified 09/01/22 14:02 penicillin V AdvReac Unknown yeast Verified 09/01/22 14:02 infections Review of Systems Review of Systems: Review of systems: General: Patient denies any fever chills recent illness or falls Musculoskeletal: Denies back pain or body aches or other injuries HEENT: denies headache, runny nose, ear pain Respiratory: denies shortness of breath, cough Cardiovascular: no chest pain or palpitations : denies dysuria, frequency Abdomen: no nausea vomiting denies abdominal pain Extremities: no swelling, no pain Skin: no diaphoresis Yes all other systems are reviewed and are negative [facility] Past Medical History Medical History Arthritis Carpal tunnel syndrome Chronic insomnia Depression with anxiety Dyslipidemia Ectopic Elevated C-reactive protein (CRP) Elevated liver enzymes Fibromyalgia HTN (hypertension) Impaired fasting glucose Morbid obesity due to excess calories Sciatica Varicose veins of leg with swelling Surgical History H/O tubal ligation History of appendectomy History of carpal tunnel surgery of right wrist Family History Family History Father HTN (hypertension) Heart disease Mother HTN (hypertension) Arrhinia Brother Substance use disorder Social History Social History Household Members: Spouse Housing: House Alcohol intake: current Alcohol intake frequency: holidays/special occasions only Patient Tobacco Use Status: Former Tobacco user Tobacco use type: Cigarette e-Cigarette/Vaping Use: Never Used Second Hand Smoke Exposure: No Advance Directives: No Advance Directives Information Provided: No Current occupational status: employed and disabled 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 Sexual orientation: Straight/Heterosexual Gender identity: Female Cognitive needs: No Hearing needs: No Vision needs: No Physical Exam Vital Signs: Vital Signs: Last Vital Signs Temp 98.4 F 09/09/22 20:00 Pulse 83 09/09/22 20:00 Resp 16 09/09/22 20:00 BP 142/61 H 09/09/22 20:00 Pulse Ox 98 09/09/22 20:00 O2 Del Method Room Air 09/09/22 20:00 BMI result Body Mass Index 39.3 General: Well-appearing well-nourished in no signs of distress HEENT: Normocephalic atraumatic Neck: No signs of JVD, no masses no tenderness or lymphadenopathy Cardiovascular: Regular rate and rhythm Respiratory: Clear to auscultation bilaterally Abdomen: Soft nontender no masses Extremities: Normal pedal pulses no signs of edema Skin: Dry warm no rashes Back: No tenderness full ROM Medications Administered Discontinued Medications Generic Name Dose Route Start Last Admin Trade Name Freq PRN Reason Stop Dose Admin Al Hydroxide/Mg Hydroxide 30 ml 09/09/22 18:50 09/09/22 19:14 Magnesium Hydrox/Alum Hydrox 30 Ml Oral.Susp PO 09/09/22 18:51 30 ml ONCE ONE Administration Sodium Chloride 1,000 mls @ 999 mls/hr 09/09/22 17:30 09/09/22 18:07 Ns IV 09/09/22 18:30 999 mls/hr .Q1H1M MINDY Administration Lorazepam 0.5 mg 09/09/22 18:50 09/09/22 19:14 Lorazepam 0.5 Mg Tablet PO 09/09/22 18:51 0.5 mg ONCE ONE Administration Medical Decision Making Medical Decision Making MDM Narrative: Patient had an episode chest pressure patient looks otherwise well I do think is related to anxiety with her argument that happened just prior to the symptoms but since she is 62 years old family history of heart disease High will get an x-ray and labs make sure things are okay. Fortunately her symptoms have since resolved. Patient complaining of worsening chest pain while waiting for her repeat troponin I did explain that her initial troponin was negative x-ray was normal. Patient was found to have some burning and give you for symptoms. I reassessed the patient at home after getting her 2nd troponin drawn she states she is having pain but did have some pain like this after going to consult a few days ago and thinks I could be related to it. 2116 repeat troponin is negative patient is feeling much better I will discharge the patient home with PCP follow-up. Differential Diagnosis Differential Diagnoses: The differential diagnosis associated with the presentation includes Concern for ACS versus dizziness versus dehydration are anxiety. Lab Data 09/09/22 17:49 09/09/22 17:49 Labs: Lab Results 09/09/22 09/09/22 09/09/22 Range/Units 17:49 17:49 17:49 WBC 7.5 (4.8-10.8) X10*3/uL RBC 5.09 (4.20-5.50) X10*6/uL Hgb 14.5 (12.0-16.0) g/dl Hct 45.3 (37.0-47.0) % MCV 89.0 (80.0-98.0) fL MCH 28.5 (27.0-33.0) pg MCHC 32.0 (31.0-35.0) g/dl RDW 14.1 (11.0-16.0) % Plt Count 138 L (160-400) X10*3/uL MPV 12.1 (9.4-12.3) fL Absolute Nucleated RBC 0.000 (0.0-0.012) X10*3/uL Nucleated RBC % (auto) 0.0 (0.0-0.2) /100WBC Sodium 141 (135-145) mmol/L Potassium 3.9 (3.3-5.1) mmol/L Chloride 106 (96-108) mmol/L Carbon Dioxide 26 (22-29) mmol/L Anion Gap 13 (12-20) BUN 9 (9-16) mg/dL Creatinine 0.69 (0.5-1.4) mg/dL Estim Creat Clear Calc 92.1 Estimated GFR > 60 Random Glucose 118 H (60-115) mg/dL Calcium 9.1 (8.4-10.2) mg/dL Total Bilirubin (0.0-1.0) mg/dL Direct Bilirubin (0.0-0.5) mg/dL AST (5-31) U/L ALT (0-31) U/L Alkaline Phosphatase (39-117) U/L Troponin I High Sens 3.8 (<3.5-17.0) ng/L Total Protein (6.5-8.0) g/dL Albumin (3.5-5.0) g/dL Lipase (8-78) U/L 09/09/22 09/09/22 Range/Units 17:49 20:20 WBC (4.8-10.8) X10*3/uL RBC (4.20-5.50) X10*6/uL Hgb (12.0-16.0) g/dl Hct (37.0-47.0) % MCV (80.0-98.0) fL MCH (27.0-33.0) pg MCHC (31.0-35.0) g/dl RDW (11.0-16.0) % Plt Count (160-400) X10*3/uL MPV (9.4-12.3) fL Absolute Nucleated RBC (0.0-0.012) X10*3/uL Nucleated RBC % (auto) (0.0-0.2) /100WBC Sodium (135-145) mmol/L Potassium (3.3-5.1) mmol/L Chloride (96-108) mmol/L Carbon Dioxide (22-29) mmol/L Anion Gap (12-20) BUN (9-16) mg/dL Creatinine (0.5-1.4) mg/dL Estim Creat Clear Calc Estimated GFR Random Glucose (60-115) mg/dL Calcium (8.4-10.2) mg/dL Total Bilirubin 0.3 (0.0-1.0) mg/dL Direct Bilirubin 0.1 (0.0-0.5) mg/dL AST 24 (5-31) U/L ALT 27 (0-31) U/L Alkaline Phosphatase 76 (39-117) U/L Troponin I High Sens 8.7 D (<3.5-17.0) ng/L Total Protein 6.5 (6.5-8.0) g/dL Albumin 3.9 (3.5-5.0) g/dL Lipase 18 (8-78) U/L Scores Heart Score History: -0- slightly suspicious ECG: -0- normal Age: -1- >45 - <65 Risk factory: -1- 1 or 2 risk factors Troponin: -0- < or = normal limit Score: 2 Risk: 1.7% Discharge Plan Discharge Clinical Impression: Chest pain Patient Disposition: Home, Self-Care Instructions: Chest Pain (DC) Additional Instructions: Please call to follow up with your doctor. If you have worsening chest pain please return to the ED. Prescriptions: No Action zolpidem 10 mg tablet 10 mg PO BEDTIME PRN (Reason: insomnia) Qty: 30 0RF tramadol 50 mg tablet 50 mg PO TID Qty: 90 3RF ibuprofen 600 mg tablet 600 mg PO Q8H PRN (Reason: joint pain) Qty: 30 1RF cholecalciferol (vitamin D3) 250 mcg (10,000 unit) capsule 250 mcg PO QWEEK milk thistle 150 mg capsule 300 mg PO DAILY Rx Instructions: give with meal/snack naproxen sodium 220 mg capsule 220 mg PO BID PRN
[2022-09-09] MEDS: 0.9 % Sodium Chloride 1,000 ML 999 ML IV (18:07)
[2022-09-09 18:13] LABS: Anion Gap 13 (12-20); Blood Urea Nitrogen 9 mg/dL (9-16); Calcium 9.1 mg/dL (8.4-10.2); Carbon Dioxide 26 mmol/L (22-29); Chloride 106 mmol/L (96-108); Creatinine Clr Calc Pharmacy 92.1; Estimated Glomerular Filt Rate > 60; Glucose Random 118 mg/dL (60-115); Potassium 3.9 mmol/L (3.3-5.1); Sodium 141 mmol/L (135-145)
[2022-09-09 18:15] LABS: Alanine Aminotransferase 27 U/L (0-31); Albumin Level 3.9 g/dL (3.5-5.0); Alkaline Phosphatase 76 U/L (39-117); Aspartate Amino Transferase 24 U/L (5-31); Bilirubin Direct 0.1 mg/dL (0.0-0.5); Bilirubin Total 0.3 mg/dL (0.0-1.0); Lipase 18 U/L (8-78); Total Protein 6.5 g/dL (6.5-8.0)
[2022-09-09 18:21] LABS: Troponin-I High Sensitivity 3.8 ng/L (<3.5-17.0)
[2022-09-09 18:29] LABS: Hematocrit 45.3 % (37.0-47.0); Hemoglobin 14.5 g/dl (12.0-16.0); Mean Corpuscular Hemoglobin 28.5 pg (27.0-33.0); Mean Platelet Volume 12.1 fL (9.4-12.3); Platelet Count 138 X10*3/uL (160-400); Red Blood Count 5.09 X10*6/uL (4.20-5.50); Red Cell Distribution Width 14.1 % (11.0-16.0); White Blood Count 7.5 X10*3/uL (4.8-10.8)
[2022-09-09] MEDS: LORazepam 0.5 MG TABLET PO (19:14)
[2022-09-09] MEDS: Magnesium Hydrox/Alum Hydrox 30 ML ORAL.SUSP PO (19:14)
[2022-09-09 20:00] VITALS: BP 142/61; PULSE 83; RESP 16; TEMP 36.9; O2SAT 98
[2022-09-09 20:56] LABS: Troponin-I High Sensitivity 8.7 ng/L (<3.5-17.0)
== END 2022-09-09 21:39 | disposition home or self-care (01) ==
PROVIDERS: Emergency Provider Student in an Organized Health Care Education/Training Program; PCP Internal Medicine
DX: R07.89 Other chest pain (principal); Z87.891 Personal history of nicotine dependence; Z79.899 Other long term (current) drug therapy
CPT/HCPCS: 36415; 71045; 80048; 80076; 83690; 84484; 85027; 93005; 99283; 99284

== ENCOUNTER 2022-10-01 11:39 | Outpatient (REF) | payer OTHER, SELFPAY ==
[2022-10-01 14:01] LABS: Anion Gap 15 (12-20); Blood Urea Nitrogen 12 mg/dL (9-16); Calcium 9.6 mg/dL (8.4-10.2); Carbon Dioxide 26 mmol/L (22-29); Chloride 108 mmol/L (96-108); Cholesterol 269 mg/dL; Estimated Average Glucose 128 mg/dL; Estimated Glomerular Filt Rate > 60; Glucose Fasting 127 mg/dL (60-99); HDL Cholesterol 46 mg/dL; Hemoglobin A1c % 6.1 %; LDL Cholesterol Calculated 199 mg/dl; Potassium 4.5 mmol/L (3.3-5.1); Sodium 144 mmol/L (135-145); Triglycerides 123 mg/dL
== END 2022-10-01 11:40 | disposition home or self-care (01) ==
LOC: HO.HMGCLDS 11:39
PROVIDERS: PCP Internal Medicine; Visit Provider Internal Medicine
DX: E78.5 Hyperlipidemia, unspecified (principal); R73.01 Impaired fasting glucose; I10 Essential (primary) hypertension
CPT/HCPCS: 36415; 80048; 80061; 83036

== ENCOUNTER 2022-10-16 12:16 | Outpatient (AMB) | payer OTHER, SELFPAY ==
[2022-10-16 12:48] VITALS: BP 122/78; PULSE 72; O2SAT 98; BMI 46.1
--- NOTE | 2022-10-16 12:48 | A.OFFPC_ITS ---
Vital Signs 10/16/22 12:48 Height 5 ft 2 in Weight 252 lb BMI 46.1 BP 122/78 Blood Pressure Location Rt brachial Position Sitting Pulse 72 Pulse Source Pulse Oximeter Pulse Oximetry (%) 98 Intake Visit Reasons: Annual PE Intake Note: pt is here for annual exam, denies concerns. patient states annual pap appt is booked for 11/12/22. unsure when last pap was done. Skidder Loader Required: No Accompanied by: Self / Same As Patient Allergies Clindamycin HCl Adverse Reaction (Unknown, Verified 06/09/23 15:43) diarrhea penicillin V Adverse Reaction (Unknown, Verified 06/09/23 15:43) yeast infections Medication List - Last Reconciled 10/16/22 by Saige Grewal MD cholecalciferol (vitamin D3) 25 mcg PO DAILY ibuprofen 600 mg PO Q8H PRN milk thistle 300 mg PO DAILY naproxen sodium 220 mg PO BID PRN tramadol 50 mg PO TID zolpidem 10 mg PO BEDTIME PRN Tobacco use date assessed: 10/16/22 HPI Annual PE HPI Details 62-year-old lady here today for physical exam. She already has an appointment for her routine Pap and pelvic exam scheduled. She also has an appointment next month for her bone density scan and screening mammogram. Patient declines getting colonoscopy or doing Cologuard testing she also declines getting any vaccinations REPLACED BY [facility] Medical History (Updated 02/25/23 @ 14:19 by Saige Grewal MD) Vaccine refused by patient Chronic insomnia Varicose veins of leg with swelling Depression with anxiety Impaired fasting glucose Morbid obesity due to excess calories Dyslipidemia Elevated C-reactive protein (CRP) Carpal tunnel syndrome Sciatica Arthritis Ectopic Elevated liver enzymes Fibromyalgia HTN (hypertension) Surgical History H/O tubal ligation History of carpal tunnel surgery of right wrist History of appendectomy Family History Father HTN (hypertension) Heart disease Mother HTN (hypertension) Arrhinia Brother Substance use disorder Social History Household Members: Spouse Housing: House Alcohol intake: current Alcohol intake frequency: holidays/special occasions only Patient Tobacco Use Status: Former Tobacco user Tobacco use type: Cigarette e-Cigarette/Vaping Use: Never Used Second Hand Smoke Exposure: No Current occupational status: employed and disabled 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 Tien Rhodes, Roseline Deluna, Leonel Huang and colleagues, with an educational adri from [employer]. Review of Systems Const Reports difficulty sleeping, Denies fever(s), Denies headache(s) and Denies weakness Eyes Denies change in vision ENT Denies dizziness, Denies headache(s), Denies nasal congestion, Denies nasal discharge and Denies sore throat Card Denies chest pain, Denies lightheadedness and Denies dyspnea Resp Denies chest congestion, Denies cough and Denies dyspnea GI Denies abdominal pain, Denies change in bowel habits and Denies heartburn Reports no additional complaints Musc Reports no additional complaints Skin/Breast Denies breast pain, Denies breast mass, Denies lesions and Denies rash Neuro Denies dizziness, Denies headache(s) and Denies weakness Psych Reports no additional complaints Endo Reports no additional complaints Vijay/Lymph Reports no additional complaints Aller/Immun Reports no additional complaints Physical exam (Primary Care) Vital Signs: Last Vital Signs Pulse 72 10/16/22 12:48 BP 122/78 10/16/22 12:48 Pulse Ox 98 10/16/22 12:48 BMI result Body Mass Index 46.1 BMI Assessment/Plan discussion: High BMI High, discussed plan: lifestyle, weight reduction, dietary and physical activity Tobacco/Smoking Status: Tobacco use Status Tobacco use date assessed 10/16/22 10/16/22 12:54 Patient Tobacco Use Status Former Tobacco user 10/16/22 12:54 Tobacco use type Cigarette 10/16/22 12:54 e-Cigarette/Vaping Use Never Used 10/16/22 12:54 Thrive Assessment: Date of Thrive Assessment Date Thrive assessed 09/17/22 10/16/22 12:54 Const Other: Alert oriented x3, morbidly obese, no acute distress noted Orientation/consciousness: patient oriented x3 HENVA Head: Yes normocephalic Ears: external ears normal, TM's normal bilaterally and EAC's normal General nose exam: Normal external nose present Face and sinus: Yes face symmetric Mouth: Normal oral and palatal mucosa present, oropharynx normal and moist mucous membranes Eyes General: appearance normal, both eyes and all related structures Neck Other: Supple no lymphadenopathy, thyroid nonpalpable Chest Breast/axilla palpation: normal palpation of the breasts and normal palpation of the axillae Resp Auscultation: clear to auscultation bilaterally Cardio Other: S1-S2 present regular rate and rhythm GI Palpation (GI): Soft to palpation, nontender and no guarding Auscultation: normal bowel sounds General: Yes no CVA tenderness Back/Spine/Pelvis Back: no CVA tenderness Skin General skin exam: no rashes or lesions noted Neuro General: patient oriented x3, gait normal, tone normal, moves all extremities, Normal light touch and pain sensation, no focal motor deficits and CN's II-XI intact bilaterally Extrem General: Yes full ROM, Yes no joint enlargement, Yes no clubbing, cyanosis or edema, Yes no calf tenderness and Yes normal gait Psych Appearance: grossly normal and well kempt Mental Status: mental status grossly normal Affect: normal affect Attitude: cooperative Thought process: Normal thought process present Thought content: Normal thought content present Results Reviewed Results Reviewed: Laboratory Tests 09/09/22 17:49 WBC 7.5 Hgb 14.5 Hct 45.3 RDW 14.1 Plt Count 138 L Laboratory Tests 10/01/22 11:44 Estimat Average Glucose 128 Hemoglobin A1c % 6.1 ENTERED: 10/01/22-[address]: ORDERED: Met Prof Fast, Lipid Panel Test Result Flag Reference Site Sodium 144 135-145 mmol/L Potassium 4.5 3.3-5.1 mmol/L CL 108 96-108 mmol/L CO2 26 22-29 mmol/L Gap 15 12-20 BUN 12 9-16 mg/dL Creat 0.75 0.5-1.4 mg/dL EGFR > 60 NOTE: For -[place] individuals, multiply the result by 1.210. Chronic Kidney Disease: Estimated GFR < 60 mL/min /1.73m2 Severe Kidney Disease: Estimated GFR < 15 mL/min/1.73m2 FBS 127 H 60-99 mg/dL A fasting glucose of 126 mg/dl or greater on more than one occasion is considered diagnostic of diabetes. CA 9.6 8.4-10.2 mg/dL Triglyceride 123 mg/dL Desirable Triglyceride: less than 150 mg/dL Borderline High Triglyceride 150-199 mg/dL High Triglyceride: 200-499 mg/dL Very High Triglyceride: greater than or equal to 5OO mg/dL Chol 269 mg/dL Desirable Cholesterol: less than 200 mg/dL Borderline High Cholesterol: 200-239 mg/dL High Cholesterol: greater than 239 mg/dL LDL Calculated 199 mg/dl Desirable LDL: less than 100 mg/dL Near Optimal/Above Optimal LDL: 110-129 mg/dL Borderline High LDL: 130-159 mg/dL High LDL: 160-189 mg/dL Very High LDL: greater than or equal to 190 mg/dL HDL 46 mg/dL Desirable HDL: greater than 40 mg/dL Note: This HDL assay may give artificially low results in patients with liver disease. Assessment and Plan Assessment & Plan (1) Morbid obesity due to excess calories: Code(s): E66.01 - Morbid (severe) obesity due to excess calories Plan: Discussed need to increase activity and wt reduction. Recommended focusing on improving your health instead of dieting. : Eat Mediterranean diet, limit foods high in fat, sugar, and calories, eat slowly, pay attention to portion sizes, plan your meals ahead of time, start regular physical activity 150 minutes of moderate intensity exercise or 90 minutes/week of vigorous exercise and increase water intake. (2) Asymptomatic age-related postmenopausal state: Code(s): Z78.0 - Asymptomatic menopausal state Plan: Check vitamin-D level , bone density scan ordered (3) Impaired fasting glucose: Code(s): R73.01 - Impaired fasting glucose Plan: Your fasting blood sugars elevated above 100 mg/dL. Latest hemoglobin A1c is at 6.1%. Impaired glucose metabolism O2 at risk for developing diabetes mellitus type 2, as well as heart attack and stroke later on. Lifestyle changes at just weight loss, healthy eating habits, and regular exercise are important, and can prevent the progression to diabetes (4) Dyslipidemia: Code(s): E78.5 - Hyperlipidemia, unspecified Plan: Fasting lipids showed marked elevation in LDL cholesterol. Will start on rosuvastatin 5 mg per tablet taken once a day. Stressed importance of adhering to a low-cholesterol diet and getting regular exercise at least 30 minutes of cardio 3 to 4 times a week. Repeat another fasting lipid panel in 3 month (5) HTN (hypertension): Code(s): I10 - Essential (primary) hypertension Qualifiers: Hypertension type: primary hypertension Qualified Code(s): I10 - Essential (primary) hypertension Plan: Blood pressure at goal of less than 130/80. Continue with current medication. Reinforced importance of following a low sodium diet, getting regular exercise, and lowering stress levels. (6) Vaccine refused by patient: Code(s): Z28.20 - Immunization not carried out because of patient decision for unspecified reason (7) Chronic insomnia: Code(s): F51.04 - Psychophysiologic insomnia Plan: Takes zolpidem as needed (8) Colonoscopy refused: Comment: Agrees to rediscuss in the spring-understands importance of follow through Code(s): Z53.20 - Procedure and treatment not carried out because of patient's decision for unspecified reasons (9) Fibromyalgia: Code(s): M79.7 - Fibromyalgia Plan: Followed by Rheumatology currently taking tramadol and NSAIDs as needed. Stressed importance of doing regular exercise (10) Annual visit for general adult medical examination with abnormal findings: Code(s): Z00.01 - Encounter for general adult medical examination with abnormal findings Plan: Fasting labs reviewed with patient. Recommended dental visit every 6 months and regular eye exams, at least every year.. Take adequate calcium in diet and vitamin-D 3 at 2000 IU per cap once a day, in addition to weight-bearing exercises to help maintain good muscle tone and weight control. Instructed to do self-breast exam has an appointment already scheduled for her screening m ammogram and bone density for next month. Patient refuses to get colon cancer screening or vaccination. Willing to do Cologuard testing, ordered Orders: Orders MM screening mammo BI 10/16/22 Z12.31 - Encounter for screening mammogram for malignant neoplasm of breast, Z78.0 - Asymptomatic menopausal state Hemoglobin A1c 3 Months R73.01 - Impaired fasting glucose, E78.5 - Hyperlipidemia, unspecified, I10 - Essential (primary) hypertension Lipid Panel 3 Months R73.01 - Impaired fasting glucose, E78.5 - Hyperlipidemia, unspecified, I10 - Essential (primary) hypertension Alanine Aminotransferase 3 Months R73.01 - Impaired fasting glucose, E78.5 - Hyperlipidemia, unspecified, I10 - Essential (primary) hypertension Basic Metabolic Panel Fasting 3 Months R73.01 - Impaired fasting glucose, E78.5 - Hyperlipidemia, unspecified, I10 - Essential (primary) hypertension XR DEXA axial skeleton 10/16/22 Z12.31 - Encounter for screening mammogram for malignant neoplasm of breast, Z78.0 - Asymptomatic menopausal state Aspartate Amino Transferase 3 Months R73.01 - Impaired fasting glucose, E78.5 - Hyperlipidemia, unspecified, I10 - Essential (primary) hypertension Vitamin D 25-OH Total 3 Months R73.01 - Impaired fasting glucose, E78.5 - Hyperlipidemia, unspecified, I10 - Essential (primary) hypertension Referrals Cologuard Test Z12.11 - Encounter for screening for malignant neoplasm of colon, Z12.12 - Encounter for screening for malignant neoplasm of rectum Medications: New cholecalciferol (vitamin D3) 25 mcg PO DAILY rosuvastatin 5 mg PO DAILY 90 tabs 0RF Coding Level of Care Code Est Pt Prev Care 40-64y(51191) Diagnoses Morbid obesity due to excess calories E66.01 Asymptomatic age-related postmenopausal state Z78.0 Impaired fasting glucose R73.01 Dyslipidemia E78.5 Primary hypertension I10 Hypertension type: primary hypertension Vaccine refused by patient Z28.20 Chronic insomnia F51.04 Colonoscopy refused Z53.20 Fibromyalgia M79.7 Annual visit for general adult medical examination with abnormal findings Z00.01
== END 2022-10-16 13:43 | disposition home or self-care (01) ==
LOC: HO.HMGC 12:16
PROVIDERS: PCP Internal Medicine; Visit Provider Internal Medicine
DX: Z00.00 Encounter for general adult medical examination without abnormal findings (principal); E66.01 Morbid (severe) obesity due to excess calories; Z68.41 Body mass index [BMI] 40.0-44.9, adult; Z78.0 Asymptomatic menopausal state; R73.01 Impaired fasting glucose; E78.5 Hyperlipidemia, unspecified; I10 Essential (primary) hypertension; Z28.20 Immunization not carried out because of patient decision for unspecified reason; F51.04 Psychophysiologic insomnia; Z53.20 Procedure and treatment not carried out because of patient's decision for unspecified reasons; M79.7 Fibromyalgia
CPT/HCPCS: 99396

== ENCOUNTER 2022-11-12 13:15 | Outpatient (REF) | payer OTHER, SELFPAY ==
[2022-11-19 07:09] LABS: HPV mRNA E6/E7 rflx Not Detected (Not Detected)
== END 2022-11-12 13:16 | disposition home or self-care (01) ==
LOC: HO.LNP 13:15
PROVIDERS: PCP Internal Medicine; Visit Provider Advanced Practice Midwife
DX: Z01.419 Encounter for gynecological examination (general) (routine) without abnormal findings (principal); N95.1 Menopausal and female climacteric states; R21 Rash and other nonspecific skin eruption
CPT/HCPCS: 87624; 88142

== ENCOUNTER 2022-11-19 14:15 | Outpatient (REF) | payer OTHER, SELFPAY ==
--- NOTE | ~2022-11-19 | MM_ITS ---
EXAMINATION: BONE DENSITOMETRY CLINICAL INDICATION: Encounter for screening mammogram for malignant neoplasm of breast. Menopause. COMPARISON: This is the patient's baseline examination. TECHNIQUE: Using a [employer] DXA System (software version: 13.1) manufactured by [employer], dual-energy x-ray absorptiometry was performed of the lumbar spine and left hip. The images are of good technical quality. Summary results are attached. FINDINGS: LEFT FEMUR, NECK: BMD 1.086 g/cm2, Z-score 0.9, T-score 0.3, normal. LEFT FEMUR, TOTAL: BMD 1.261 g/cm2, Z-score 2.2, T-score 2.0, normal. AP SPINE L1-L4: BMD 1.266 g/cm2, Z-score 0.9, T-score 0.7, normal. IDENTIFIED RISK FACTORS: Height loss, menopause. HISTORY OF FRACTURE: None listed. MEDICATIONS: Vitamin D. MM/XR DEXA axial skeleton IMPRESSION: 1. DIAGNOSIS: Normal bone density based on the lowest T-score value of 0.3 in the femoral neck applying World Health Organization criteria. 2. 10-YEAR FRACTURE RISK PREDICTION, FRAX: According to the guidelines, FRAX calculation should only be performed on patients in the osteopenia bone density category. Therefore, FRAX was not performed on this patient. 3. Treatment Recommendations: NOF guidelines recommend consideration for treatment in postmenopausal women and men age 50 and older presenting with the following: -A hip or vertebral (clinical or morphometric) fracture. -T-score less than or equal to -2.5 at the femoral neck or spine after appropriate evaluation to exclude secondary causes. -Low bone mass at the hip or spine and a 10-year fracture probability by FRAX of greater than or equal to 3% for hip fracture or greater than or equal to 20% for major osteoporotic fracture based on the [place] adapted WHO algorithm. 4. Other Recommendations: All treatment decisions require clinical judgment and consideration of individual patient factors, including patient preferences, comorbidities, previous drug use, risk factors not captured in the FRAX model (e.g. frailty, falls, vitamin D deficiency, increased bone turnover, interval significant decline in bone density) and possible under or overestimation of fracture risk by FRAX. FUTURE SCAN RECOMMENDATION: People with diagnosed cases of osteoporosis or at high risk for fracture should have regular bone mineral density tests. For patients eligible for Medicare, routine testing is allowed once every 2 years. The testing frequency can be increased to one year for patients who have rapidly progressing disease, those who are receiving or discontinuing medical therapy to restore bone mass, or have additional risk factors.
--- NOTE | ~2022-11-19 | MM_ITS ---
EXAMINATION: MM SCREENING DIGITAL BREAST TOMOSYNTHESIS, BILATERAL CLINICAL INFORMATION: Screening. Asymptomatic. The lifetime risk of breast cancer based on the Tyrer-Cuzick Model is 8.3%. COMPARISON: Mammography: This study is compared with prior exams dating back to 2012. TECHNIQUE: Digital breast tomosynthesis is performed in both the craniocaudal and mediolateral oblique views along with computer-aided detection (CAD). Synthesized 2D images are generated from the tomosynthesis. FINDINGS: The breasts are almost entirely fatty (ACR BI-RADS breast composition Category a). There are no significant masses, abnormal calcifications, or other abnormalities. There are a few, bilateral benign calcifications in each breast. MM/MM tomosynthesis screening BI IMPRESSION: No mammographic evidence of malignancy. ASSESSMENT: BI-RADS BI-RADS 2 - Benign Findings RECOMMENDATION: Routine annual mammography screening. 1 year F/U This examination should not preclude the clinical evaluation of a suspicious palpable abnormality. This patient's information was entered into a reminder system with a target due date for their next mammogram.
== END 2022-11-19 14:16 | disposition home or self-care (01) ==
LOC: HO.MAMMO 14:15
PROVIDERS: PCP Internal Medicine; Visit Provider Internal Medicine
DX: Z12.31 Encounter for screening mammogram for malignant neoplasm of breast (principal); Z13.820 Encounter for screening for osteoporosis; Z78.0 Asymptomatic menopausal state
CPT/HCPCS: 77063; 77067; 77080

== ENCOUNTER → 2022-11-19 14:30 | Outpatient (BNV) | payer OTHER, SELFPAY | PROVIDERS: PCP Internal Medicine; Visit Provider Radiology Diagnostic Radiology | DX: Z12.31 Encounter for screening mammogram for malignant neoplasm of breast (principal) | CPT/HCPCS: 77063; 77067 ==

== ENCOUNTER 2023-02-19 11:15 | Outpatient (REF) | payer OTHER, SELFPAY ==
[2023-02-19 15:43] LABS: Alanine Aminotransferase 21 U/L (0-31); Anion Gap 15 (12-20); Aspartate Amino Transferase 20 U/L (5-31); Blood Urea Nitrogen 11 mg/dL (9-16); Calcium 9.5 mg/dL (8.4-10.2); Carbon Dioxide 22 mmol/L (22-29); Chloride 110 mmol/L (96-108); Cholesterol 242 mg/dL (<200); Estimated Glomerular Filt Rate > 60; Glucose Fasting 130 mg/dL (60-99); HDL Cholesterol 42 mg/dL (>40); LDL Cholesterol Calculated 177 mg/dL (<100); Potassium 4.3 mmol/L (3.3-5.1); Sodium 143 mmol/L (135-145); Triglycerides 118 mg/dL (<150); Vitamin D 25-OH Total 40.3 ng/mL (>30)
== END 2023-02-19 11:16 | disposition home or self-care (01) ==
LOC: HO.HMGCLDS 11:15
PROVIDERS: PCP Internal Medicine; Visit Provider Internal Medicine
DX: I10 Essential (primary) hypertension (principal); R73.01 Impaired fasting glucose; E78.5 Hyperlipidemia, unspecified
CPT/HCPCS: 36415; 80048; 80061; 82306; 83036; 84450; 84460

== ENCOUNTER 2023-02-25 13:22 | Outpatient (AMB) | payer OTHER, SELFPAY ==
[2023-02-25 13:23] VITALS: BP 120/70; PULSE 80; O2SAT 96; BMI 45.4
--- NOTE | 2023-02-25 13:23 | MHC.PC.OV ---
Vital Signs 02/25/23 13:23 Height 5 ft 2 in Weight 248 lb BMI 45.4 BP 120/70 Blood Pressure Location Lt brachial Position Sitting Pulse 80 Pulse Source Pulse Oximeter Pulse Oximetry (%) 96 Oxygen Delivery Method Room Air Intake Visit Reasons: 3 month follow up Intake Note: pt is here today for her 3mo.f/u Allergies Clindamycin HCl Adverse Reaction (Unknown, Verified 02/25/23 13:29) diarrhea penicillin V Adverse Reaction (Unknown, Verified 02/25/23 13:29) yeast infections Medication List - Last Reconciled 02/25/23 by Saige Grewal MD cholecalciferol (vitamin D3) 25 mcg PO DAILY ibuprofen 600 mg PO Q8H PRN milk thistle 300 mg PO DAILY naproxen sodium 220 mg PO BID PRN rosuvastatin 5 mg PO DAILY tramadol 50 mg PO TID zolpidem 10 mg PO BEDTIME PRN Tobacco use date assessed: 02/25/23 Dental Screening Dental Screen Date: 02/25/23 Did you have a dental visit in the last 12 months?: Yes Did you have a dental problem in the last 6 months where you did not have access to dental care?: No Was dental information given to patient?: Patient has dentist HPI HPI Comments History of Present Illness Details 62-year-old lady with prediabetes, hyperlipidemia, hypertension, morbid obesity, here today for follow-up. She has been compliant with taking her medications, and has been more active over the summer. Recent fasting labs showed improvement in her cholesterol levels and hemoglobin A1c is now down to 6%. She has been feeling well with no complaints at present time [facility] Medical History (Updated 02/25/23 @ 14:19 by Saige Grewal MD) Vaccine refused by patient Chronic insomnia Varicose veins of leg with swelling Depression with anxiety Impaired fasting glucose Morbid obesity due to excess calories Dyslipidemia Elevated C-reactive protein (CRP) Carpal tunnel syndrome Sciatica Arthritis Ectopic Elevated liver enzymes Fibromyalgia HTN (hypertension) Surgical History H/O tubal ligation History of carpal tunnel surgery of right wrist History of appendectomy Family History Father HTN (hypertension) Heart disease Mother HTN (hypertension) [place] Brother Substance use disorder Social History Household Members: Spouse Housing: House Alcohol intake: current Alcohol intake frequency: holidays/special occasions only Patient Tobacco Use Status: Former Tobacco user Tobacco use type: Cigarette e-Cigarette/Vaping Use: Never Used Second Hand Smoke Exposure: No Current occupational status: employed and disabled 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 How often do you have a drink containing alcohol?: Monthly or less 2. How many drinks containing alcohol do you have on a typical day when you are drinking?: 1 or 2 Total Score: 1 SHANE-7 AMB Questionnaire SHANE-7 Date SHANE - 7 assessed: 09/17/22 Source: Developed by Drs. Tien Rhodes, Roseline Deluna, Leonel Huang and colleagues, with an educational adri from [employer]. Review of Systems Const Denies fever(s), Denies headache(s) and Denies weakness Eyes Denies change in vision ENT Denies dizziness, Denies headache(s), Denies nasal congestion, Denies nasal discharge and Denies sore throat Card Denies chest pain, Denies lightheadedness and Denies dyspnea Resp Denies chest congestion, Denies cough and Denies dyspnea GI Denies abdominal pain, Denies change in bowel habits and Denies heartburn Reports no additional complaints Musc Reports no additional complaints Neuro Denies dizziness, Denies headache(s) and Denies weakness Endo Reports no additional complaints Physical exam (Primary Care) Vital Signs: Last Vital Signs Pulse 80 02/25/23 13:23 BP 120/70 02/25/23 13:23 Pulse Ox 96 02/25/23 13:23 Oxygen Delivery Method Room Air 02/25/23 13:23 BMI result Body Mass Index 45.4 BMI Assessment/Plan discussion: High BMI High, discussed plan: lifestyle, weight reduction, dietary and physical activity Tobacco/Smoking Status: Tobacco use Status Tobacco use date assessed 02/25/23 02/25/23 13:35 Patient Tobacco Use Status Former Tobacco user 02/25/23 13:24 Tobacco use type Cigarette 02/25/23 13:24 e-Cigarette/Vaping Use Never Used 02/25/23 13:24 Thrive Assessment: Date of Thrive Assessment Date Thrive assessed 09/17/22 02/25/23 13:24 Const Other: Alert oriented x3, morbidly obese, no acute distress noted Orientation/consciousness: patient oriented x3 Eyes General: appearance normal, both eyes and all related structures Neck Other: Supple no lymphadenopathy, thyroid nonpalpable Resp Auscultation: clear to auscultation bilaterally Cardio Other: S1-S2 present regular rate and rhythm GI Palpation (GI): Soft to palpation, nontender and no guarding Auscultation: normal bowel sounds General: Yes no CVA tenderness Back/Spine/Pelvis Back: no CVA tenderness Neuro General: patient oriented x3, gait normal, tone normal, moves all extremities, Normal light touch and pain sensation, no focal motor deficits and CN's II-XI intact bilaterally Extrem General: Yes full ROM, Yes no joint enlargement, Yes no clubbing, cyanosis or edema, Yes no calf tenderness and Yes normal gait Results Reviewed Results Reviewed: ENTERED: 02/19/23-[address]: ORDERED: Met Prof Fast, AST, ALT, Lipid Panel, Vitamin D 25-OH Test Result Flag Reference Site Sodium 143 135-145 mmol/L Potassium 4.3 3.3-5.1 mmol/L CL 110 H 96-108 mmol/L CO2 22 22-29 mmol/L Gap 15 12-20 BUN 11 9-16 mg/dL Creat 0.69 0.5-1.4 mg/dL EGFR > 60 NOTE: For -[place] individuals, multiply the result by 1.210. Chronic Kidney Disease: Estimated GFR < 60 mL/min/1.73m2 Severe Kidney Disease: Estimated GFR < 15 mL/min/1.73m2 FBS 130 H 60-99 mg/dL A fasting glucose of 126 mg/dl or greater on more than one occasion is considered diagnostic of diabetes. CA 9.5 8.4-10.2 mg/dL AST (GOT) 20 5-31 U/L ALT (GPT) 21 0-31 U/L Triglyceride 118 <150 mg/dL Desirable Triglyceride: less than 150 mg/dL Borderline High Triglyceride 150-199 mg/dL High Triglyceride: 200-499 mg/dL Very High Triglyceride: greater than or equal to 5OO mg/dL Cholesterol 242 H <200 mg/dL Desirable Cholesterol: less than 200 mg/dL Borderline High Cholesterol: 200-239 mg/dL High Cholesterol: greater than 239 mg/dL LDL Calculated 177 H <100 mg/dL Desirable LDL: less than 100 mg/dL Near Optimal/Above Optimal LDL: 110-129 mg/dL Borderline High LDL: 130-159 mg/dL High LDL: 160-189 mg/dL Very High LDL: greater than or equal to 190 mg/dL HDL 42 >40 mg/dL Desirable HDL: greater than 40 mg/dL Note: This HDL assay may give artificially low results in patients with liver disease. Vit D 25-OH Tot 40.3 >30 ng/mL Health Based Reference Values* < 20 ng/mL Deficient 20-30 ng/mL Insufficient > 30 ng/mL Sufficient Laboratory Tests 02/19/23 11:22 Estimat Average Glucose 126 Hemoglobin A1c % 6.0 Assessment and Plan Assessment & Plan (1) Chronic insomnia: Code(s): F51.04 - Psychophysiologic insomnia Plan: Takes zolpidem as needed (2) Colonoscopy refused: Comment: Agrees to rediscuss in the spring-understands importance of follow through Code(s): Z53.20 - Procedure and treatment not carried out because of patient's decision for unspecified reasons Plan: Does not want to do colonoscopy but willing to do Cologuard, will follow-up on the Cologuard test ordered October 2022 (3) Morbid obesity due to excess calories: Code(s): E66.01 - Morbid (severe) obesity due to excess calories Plan: Recommended focusing on improving your health instead of dieting. : Eat Mediterranean diet, limit foods high in fat, sugar, and calories, eat slowly, pay attention to portion sizes, plan your meals ahead of time, start regular physical activity 150 minutes of moderate intensity exercise or 90 minutes/week of vigorous exercise and increase water intake. (4) Dyslipidemia: Code(s): E78.5 - Hyperlipidemia, unspecified Plan: Fasting lipid panel showed improvement in her LDL cholesterol and total cholesterol levels as well as triglycerides. Advised to increase rosuvastatin dose to 5 mg alternating with 10 mg tablet every other day. Does not want to go on a full dose of 10 mg daily. Continue with adhering to healthy eating habits, portion control, doing regular walking exercises. Will repeat another fasting lipid panel on next visit next year (5) HTN (hypertension): Code(s): I10 - Essential (primary) hypertension Qualifiers: Hypertension type: primary hypertension Qualified Code(s): I10 - Essential (primary) hypertension Plan: Blood pressure at goal of less than 130/80. Continue with current medication. Reinforced importance of following a low sodium diet, getting regular exercise, and lowering stress levels. (6) Impaired fasting glucose: Code(s): R73.01 - Impaired fasting glucose Plan: Your fasting blood sugars elevated above 100 mg/dL. Latest hemoglobin A1c is at 6% Impaired glucose metabolism O2 at risk for developing diabetes mellitus type 2, as well as heart attack and stroke later on. Lifestyle changes at just weight loss, healthy eating habits, and regular exercise are important, and can prevent the progression to diabetes (7) Vaccine refused by patient: Code(s): Z28.20 - Immunization not carried out because of patient decision for unspecified reason Medications: Refilled rosuvastatin 5 mg PO DAILY 90 tabs 4RF ibuprofen 600 mg PO Q8H PRN 30 tabs 1RF joint pain M25.50 - Pain in unspecified joint Coding Level of Care Code Est Pt Level 4 (70135) Diagnoses Chronic insomnia F51.04 Colonoscopy refused Z53.20 Morbid obesity due to excess calories E66.01 Dyslipidemia E78.5 Primary hypertension I10 Hypertension type: primary hypertension Impaired fasting glucose R73.01 Vaccine refused by patient Z28.20
== END 2023-02-25 14:13 | disposition home or self-care (01) ==
PROVIDERS: PCP Internal Medicine; Visit Provider Internal Medicine
DX: F51.04 Psychophysiologic insomnia (principal); E66.01 Morbid (severe) obesity due to excess calories; Z68.42 Body mass index [BMI] 45.0-49.9, adult; Z53.20 Procedure and treatment not carried out because of patient's decision for unspecified reasons; E78.5 Hyperlipidemia, unspecified; I10 Essential (primary) hypertension; R73.01 Impaired fasting glucose; Z28.20 Immunization not carried out because of patient decision for unspecified reason
CPT/HCPCS: 99214

== ENCOUNTER 2023-03-16 13:46 | Outpatient (AMB) | payer OTHER, SELFPAY ==
--- NOTE | 2023-03-16 13:48 | A.OFFVIS_ITS ---
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 Last seen in February 2022. Patient states that she has continued chronic pain in the right hand. She has intermittent numbness in the right thumb, index and middle finger. She had carpal tunnel release on the right in the past with Dr Childs. She has chronic right knee and ankle pain. She last saw ortho in September 2021 and had injection in the right knee with good effect. She admits to chronic back pain with sciatica bilaterally, her pain comes and goes. She denies numbness in her lower extremities or bladder involvement. She states that she had lumber spine injections in the past with Dr Gale in [place]. More recently she plans to see the chiropractor. She states she saw neurology for neuropathy in the left upper thigh, she was advised loose clothing and maybe seeing the chiropractor will help. She states that her hand, back and knee pain are stable at this time on tramadol and prn naproxen. She is aware not to take naproxen and ibupfofen at the same time. She has been on tramadol since 2017. She reports fibromyalgia pain and walks when she can. She is admits to pain at the base of the right great toe when she walks, no injury. She takes zolipdem to sleep at night which she states is helpful. She admits to depression. [facility] Medical History (Updated 02/25/23 @ 14:19 by Saige Grewal MD) Vaccine refused by patient Chronic insomnia Varicose veins of leg with swelling Depression with anxiety Impaired fasting glucose Morbid obesity due to excess calories Dyslipidemia Elevated C-reactive protein (CRP) Carpal tunnel syndrome Sciatica Arthritis Ectopic Elevated liver enzymes Fibromyalgia HTN (hypertension) Surgical History H/O tubal ligation History of carpal tunnel surgery of right wrist History of appendectomy Family History Father HTN (hypertension) Heart disease Mother HTN (hypertension) [place] Brother Substance use disorder Social History Household Members: Spouse Housing: House Alcohol intake: current Alcohol intake frequency: holidays/special occasions only Patient Tobacco Use Status: Former Tobacco user Tobacco use type: Cigarette e-Cigarette/Vaping Use: Never Used Second Hand Smoke Exposure: No Current occupational status: employed and disabled 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 Sexual orientation: Straight/Heterosexual Gender identity: Female Cognitive needs: No Hearing needs: No Vision needs: Yes Review of Systems Const All systems reviewed & are unremarkable except as noted in HPI and below Physical Exam Vital Signs: Last Vital Signs Pulse 85 03/16/23 13:49 BP 124/72 03/16/23 13:49 Pulse Ox 97 03/16/23 13:49 Oxygen Delivery Method Room Air 03/16/23 13:49 APPEARANCE: Patient in no acute distress EYES: no redness, pupils equal, round and reactive to light, eyelids normal EARS: External ear normal NOSE/SINUS: Airflow through both nares, no nasal discharge, no bleeding THROAT: Oral mucosa moist, no ulcerations NECK: No thyromegaly or masses, no adenopathy, trachea midline. HEART: Regular rhythm, S1-S2 heard, no murmurs, rubs or gallops. LUNG: Clear to auscultation, respiratory rate regular and nonlabored. ABD: Abdomen soft, nontender. EXTREMITIES: No edema, no calf tenderness, normal peripheral pulses. NEURO: Oriented and alert x3. No focal weakness. Gait normal. SKIN: No inflammatory or neoplastic lesions. Normal color and turgor JOINT EXAM:.?? Cervical Spine:.? Full range of motion without pain; no tenderness. Thoracic Spine:? No scoliosis.? No tenderness on palpation. Lumbar Spine:? Alignment normal.? Full range of motion without pain, no tenderness. Hands:? Normal pain-free range of motion without tenderness, swelling, increased warmth or erythema. Able to make a full fist and has a good weight control engineer strength. Wrists:? Normal pain-free range of motion without tenderness, swelling, increased warmth or erythema. Elbows: Normal pain-free range of motion without tenderness, swelling, increased warmth or erythema. Shoulders:?? Full range of motion without pain. No tenderness, weakness, swelling, increased warmth or erythema. Hips:? Full range of motion without pain. Hip bursa:? No tenderness. Knees:?? Normal pain-free range of motion without tenderness, swelling, increased warmth or erythema.? There is no effusion or crepitation Ankles:? Normal pain-free range of motion without tenderness, swelling, increased warmth or erythema. Feet:? LEFT: Normal pain-free range of motion without tenderness, swelling, increased warmth or erythema. RIGHT: Normal range of motion. Slight tenderness to palpation and bony enlargement at the 1st MTP. No swelling, increased warmth or erythema. Tender points:? No tenderness to digital palpation at the occiput, trapezius, second rib, lateral epicondyle, knees, greater trochanter and gluteal area bilaterally. Assessment & Plan Assessment & Plan (1) Polyarthralgia: Code(s): M25.50 - Pain in unspecified joint (2) Fibromyalgia: Code(s): M79.7 - Fibromyalgia Plan Overall stable. Previous CCP rheumatoid factor, KELLY, Lyme, double-stranded DNA, Sjogren's antibody, lupus anticoagulant all negative. Patient has a component of osteoarthritis as well as fibromyalgia contributing to her pain symptoms. She has history of elevated inflammatory markers, however her exam does not demonstrate any evidence of synovitis or evidence of inflammatory arthritis. Her inflammatory markers have remained at a consistent value. Will continue to monitor patient. Follow-up 6 months or sooner if needed. Orders: Orders Erythrocyte Sedimentation Rate 03/16/23 M25.50 - Pain in unspecified joint C Reactive Protein 03/16/23 M25.50 - Pain in unspecified joint Complete Blood Count Auto Diff 03/16/23 M25.50 - Pain in unspecified joint, Z79.899 - Other residential (current) drug therapy Coding Level of Care Code New Pt Level 4 (61575) Diagnoses Polyarthralgia M25.50 Fibromyalgia M79.7
[2023-03-16 13:49] VITALS: BP 124/72; PULSE 85; O2SAT 97
== END 2023-03-16 14:31 | disposition home or self-care (01) ==
LOC: HO.RHE 13:46
PROVIDERS: PCP Internal Medicine; Visit Provider Nurse Practitioner Family
DX: M79.7 Fibromyalgia (principal); M25.59 Pain in other specified joint
CPT/HCPCS: 99213

== ENCOUNTER → 2023-03-16 13:46 | Outpatient (BNVA) | payer OTHER, SELFPAY | PROVIDERS: PCP Internal Medicine; Visit Provider Nurse Practitioner Family | DX: M25.50 Pain in unspecified joint (principal); M79.7 Fibromyalgia | CPT/HCPCS: 99212 ==

== ENCOUNTER 2023-08-30 11:13 | Outpatient (REF) | payer OTHER, SELFPAY ==
[2023-08-30 14:01] LABS: C Reactive Protein 1.62 mg/dL (< or = 0.50)
[2023-08-30 14:03] LABS: Eosinophils Absolute Auto 0.2 X10*3/uL (0.0-0.4); Imm Gran Abs Auto 0.02 X10*3/uL (0.00-0.03); Imm Gran Pct Auto 0.3 % (0.0-0.4); Lymphocytes Absolute Auto 2.2 X10*3/uL (1.2-4.9); MANUAL DIFF FLAG SCAN; PLT CLUMP 1; SCAN SMEAR FLAG 1
[2023-08-30 14:12] LABS: Basophils Absolute Auto 0.1 X10*3/uL (0.0-0.2); Basophils Percent Auto 0.7 % (0-2); Eosinophils Percent Auto 2.2 % (0-4); Hematocrit 44.1 % (37.0-47.0); Hemoglobin 14.4 g/dl (12.0-16.0); Lymphocytes Percent Auto 30.3 % (20-40); Mean Corpuscular HGB Conc 32.7 g/dl (31.0-35.0); Mean Corpuscular Hemoglobin 29.2 pg (27.0-33.0); Mean Corpuscular Volume 89.5 fL (80.0-98.0); Monocytes Absolute Auto 0.3 X10*3/uL (0.1-1.2); Monocytes Percent Auto 4.6 % (2-11); Neutrophils Absolute Auto 4.5 x10*3/uL (2.0-8.3); Neutrophils Percent Auto 61.9 % (45-73); Platelet Count 288 X10*3/uL (160-400); Red Blood Count 4.93 X10*6/uL (4.20-5.50); Red Cell Distribution Width 14.2 % (11.0-16.0); White Blood Count 7.2 X10*3/uL (4.8-10.8)
[2023-08-30 14:13] LABS: SLIDE REVIEW VERIFIED
[2023-08-30 14:25] LABS: Erythrocyte Sedimentation Rate 33 MM/HR (0-20)
== END 2023-08-30 11:14 | disposition home or self-care (01) ==
LOC: HO.HMGCLDS 11:13
PROVIDERS: PCP Internal Medicine; Visit Provider Nurse Practitioner Family
DX: M25.50 Pain in unspecified joint (principal); Z79.899 Other long term (current) drug therapy
CPT/HCPCS: 36415; 85025; 85652; 86140

== ENCOUNTER 2023-09-02 13:52 | Outpatient (AMB) | payer OTHER, SELFPAY ==
--- NOTE | 2023-09-02 14:06 | A.OFFVIS_ITS ---
Vital Signs 09/02/23 14:17 Height 5 ft 2 in Weight 251 lb 15.814 oz BMI 46.1 BP 130/78 Blood Pressure Location Rt brachial Position Sitting Pulse 92 Pulse Source Pulse Oximeter Pulse Oximetry (%) 96 Oxygen Delivery Method Room Air Intake Visit Reasons: Joint Pain Intake Note: Patient last seen 03/16/23, presents today for follow up and test results. Product Design Specialist Required: No Accompanied by: Self / Same As Patient Allergies Clindamycin HCl Adverse Reaction (Unknown, Verified 09/02/23 14:17) diarrhea penicillin V Adverse Reaction (Unknown, Verified 09/02/23 14:17) yeast infections HPI Comments Details: Ms. Bucio 63 yoF presents for follow-up of Fibromyalgia. Patient states that she has continued chronic pain in the right hand. She has intermittent numbness in the right thumb, index and middle finger. She had carpal tunnel release on the right in the past with Dr Childs. She has chronic right knee and ankle pain. She last saw ortho in September 2021 and had injection in the right knee with good effect. She admits to chronic back pain with sciatica bilaterally, her pain comes and goes. She denies numbness in her lower extremities or bladder involvement. She states that she had lumber spine injections in the past with Dr Gale in [place]. More recently she plans to see the chiropractor. She states she saw neurology for neuropathy in the left upper thigh, she was advised loose clothing. She dis see the chiropractor but decided against returning because she felt injured after the first visit. She states that her hand, back and knee pain are stable at this time on tramadol and prn naproxen but still has numbness to some fingers since CTS surgery. She is aware not to take naproxen and ibupfofen at the same time. She has been on tramadol since 2017. She reports fibromyalgia pain and walks when she can. She is admits to pain at the base of the right great toe when she walks, no injury. She takes zolipdem to sleep at night which she states is helpful. She admits to depression. [facility] Medical History (Updated 02/25/23 @ 14:19 by Saige Grewal MD) Vaccine refused by patient Chronic insomnia Varicose veins of leg with swelling Depression with anxiety Impaired fasting glucose Morbid obesity due to excess calories Dyslipidemia Elevated C-reactive protein (CRP) Carpal tunnel syndrome Sciatica Arthritis Ectopic Elevated liver enzymes Fibromyalgia HTN (hypertension) Surgical History H/O tubal ligation History of carpal tunnel surgery of right wrist History of appendectomy Family History Father HTN (hypertension) Heart disease Mother HTN (hypertension) Arrhinia Brother Substance use disorder Social History Household Members: Spouse Housing: House Alcohol intake: current Alcohol intake frequency: holidays/special occasions only Patient Tobacco Use Status: Former Tobacco user Tobacco use type: Cigarette e-Cigarette/Vaping Use: Never Used Second Hand Smoke Exposure: No Current occupational status: employed and disabled 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 Sexual orientation: Straight/Heterosexual Gender identity: Female Cognitive needs: No Hearing needs: No Vision needs: Yes Review of Systems Const All systems reviewed & are unremarkable except as noted in HPI and below Physical Exam Vital Signs: Last Vital Signs Pulse 92 09/02/23 14:17 BP 130/78 09/02/23 14:17 Pulse Ox 96 09/02/23 14:17 Oxygen Delivery Method Room Air 09/02/23 14:17 BMI result Body Mass Index 46.1 APPEARANCE: Patient in no acute distress EYES: no redness, pupils equal, round and reactive to light, eyelids normal EARS: External ear normal NOSE/SINUS: Airflow through both nares, no nasal discharge, no bleeding THROAT: Oral mucosa moist, no ulcerations NECK: No thyromegaly or masses, no adenopathy, trachea midline. HEART: Regular rhythm, S1-S2 heard, no murmurs, rubs or gallops. LUNG: Clear to auscultation, respiratory rate regular and nonlabored. ABD: Abdomen soft, nontender. EXTREMITIES: No edema, no calf tenderness, normal peripheral pulses. NEURO: Oriented and alert x3. No focal weakness. Gait normal. SKIN: No inflammatory or neoplastic lesions. Normal color and turgor JOINT EXAM:.?? Cervical Spine:.? Full range of motion without pain; no tenderness. Thoracic Spine:? No scoliosis.? No tenderness on palpation. Lumbar Spine:? Alignment normal.? Full range of motion without pain, with no tenderness. Hands:? Normal pain-free range of motion without tenderness, swelling, increased warmth or erythema. Able to make a full fist and has a good rubber tile floor layer strength. Wrists:? Normal pain-free range of motion without tenderness, swelling, increa sed warmth or erythema. Elbows: Normal pain-free range of motion without tenderness, swelling, increased warmth or erythema. Shoulders:?? Full range of motion without pain. No tenderness, weakness, swelling, increased warmth or erythema. Hips:? Full range of motion without pain. Hip bursa:? Mild to moderate tenderness. Knees:?? Normal pain-free range of motion with some tenderness around joint line but no swelling, increased warmth or erythema.? There is no effusion or crepitation Ankles:? Normal pain-free range of motion without tenderness, swelling, increased warmth or erythema. Feet:? LEFT: Normal pain-free range of motion without tenderness, swelling, increased warmth or erythema. RIGHT: Normal range of motion. Slight tenderness to palpation and bony enlargement at the 1st MTP. No swelling, increased warmth or erythema. Tender points:? Tenderness to digital palpation at the occiput, trapezius, second rib, lateral epicondyle, knees, greater trochanter and gluteal area bilaterally. Results Reviewed Results Reviewed: Laboratory Tests 02/19/23 08/30/23 11:25 11:18 WBC 7.2 RBC 4.93 Hgb 14.4 Hct 44.1 ESR 33 H AST 20 ALT 21 C-Reactive Protein 1.62 H Assessment & Plan Assessment & Plan (1) Polyarthralgia: Code(s): M25.50 - Pain in unspecified joint Category: Medical (2) Fibromyalgia: Code(s): M79.7 - Fibromyalgia Category: Medical Plan #FM/Polyarthralgia: Overall stable. Previous CCP rheumatoid factor, KELLY, Lyme, double-stranded DNA, Sjogren's antibody, lupus anticoagulant all negative. Patient has a component of osteoarthritis as well as fibromyalgia contributing to her pain symptoms. She has history of elevated inflammatory markers, however her exam does not demonstrate any evidence of synovitis or evidence of inflammatory arthritis. Her inflammatory markers have remained at a consistent value. She can continue with the Tramadol. She alternates Ibuprofen and Naproxen not taking on the same day. #Myalgia: She says since starting Statin she has felt worse. I propose that she stops it for a month and then we can reassess if any improvement. Follow-up 6 months or sooner if needed. I spent 30 minutes reviewing chart, evaluating patient and document Orders: Orders Erythrocyte Sedimentation Rate 6 Months M25.50 - Pain in unspecified joint, M79.7 - Fibromyalgia Comprehensive Met. Panel 6 Months M25.50 - Pain in unspecified joint, M79.7 - Fibromyalgia C Reactive Protein 6 Months M25.50 - Pain in unspecified joint, M79.7 - Fibromyalgia Complete Blood Count Auto Diff 6 Months M25.50 - Pain in unspecified joint, M79.7 - Fibromyalgia
[2023-09-02 14:17] VITALS: BP 130/78; PULSE 92; O2SAT 96; BMI 46.1
== END 2023-09-02 14:45 | disposition home or self-care (01) ==
PROVIDERS: PCP Internal Medicine; Visit Provider Nurse Practitioner Family
DX: M25.50 Pain in unspecified joint (principal); M79.7 Fibromyalgia
CPT/HCPCS: 99213

== ENCOUNTER → 2023-09-02 13:52 | Outpatient (BNVA) | payer OTHER, SELFPAY | PROVIDERS: PCP Internal Medicine; Visit Provider Nurse Practitioner Family | DX: M25.50 Pain in unspecified joint (principal); M79.7 Fibromyalgia | CPT/HCPCS: 99212 ==

== ENCOUNTER 2023-11-25 14:17 | Outpatient (AMB) | payer OTHER, SELFPAY ==
[2023-11-25 14:19] VITALS: BP 120/72; PULSE 69; O2SAT 97; BMI 45.7
--- NOTE | 2023-11-25 14:19 | MHC.PC.OV ---
Vital Signs 11/25/23 14:19 Height 5 ft 2 in Weight 250 lb BMI 45.7 BP 120/72 Blood Pressure Location Rt brachial Position Sitting Pulse 69 Pulse Source Pulse Oximeter Pulse Oximetry (%) 97 Oxygen Delivery Method Room Air Intake Visit Reasons: PE Intake Note: Pt is here today for her PE: Last mammogram 11/19/22, papsmear 11/16/22: Never had a colonoscopy Allergies Clindamycin HCl Adverse Reaction (Unknown, Verified 11/25/23 15:01) diarrhea penicillin V Adverse Reaction (Unknown, Verified 11/25/23 15:01) yeast infections Medication List - Last Reconciled 11/25/23 by Saige Grewal MD cholecalciferol (vitamin D3) 25 mcg PO DAILY ibuprofen 600 mg PO Q8H PRN milk thistle 300 mg PO DAILY naproxen sodium 220 mg PO BID PRN tramadol 50 mg PO TID vitamin K2 200 mcg PO DAILY zolpidem 10 mg PO BEDTIME PRN Tobacco use date assessed: 11/25/23 Dental Screening Dental Screen Date: 11/25/23 Did you have a dental visit in the last 12 months?: Yes Did you have a dental problem in the last 6 months where you did not have access to dental care?: Yes Was dental information given to patient?: Patient has dentist HPI PE HPI Details 63-year-old lady with morbid obesity, hyperlipidemia, impaired fasting glucose, osteoarthritis, chronic insomnia fibromyalgia, history of cholelithiasis and hypertension, here today for physical exam . Last mammogram and Pap smear was in November of 2022, sees [facility]. Never had a colonoscopy and does not want to get the procedure done. She is currently followed at [facility] for fibromyalgia and osteoarthritis. [facility] History Vaccine refused by patient Chronic insomnia Varicose veins of leg with swelling Depression with anxiety Impaired fasting glucose Morbid obesity due to excess calories Dyslipidemia Elevated C-reactive protein (CRP) Carpal tunnel syndrome Sciatica Arthritis Ectopic Elevated liver enzymes Fibromyalgia HTN (hypertension) Surgical History H/O tubal ligation History of carpal tunnel surgery of right wrist History of appendectomy Family History Father HTN (hypertension) Heart disease Mother HTN (hypertension) Arrhinia Brother Substance use disorder Social History Household Members: Spouse Housing: House Alcohol intake: current Alcohol intake frequency: holidays/special occasions only Patient Tobacco Use Status: Former Tobacco user Tobacco use type: Cigarette e-Cigarette/Vaping Use: Never Used Second Hand Smoke Exposure: No service: No Current occupational status: disabled 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 1. Little interest or pleasure in doing things: not at all 2. Feeling down, depressed, or hopeless: not at all 3. Trouble falling or staying asleep, or sleeping too much: not at all 4. Feeling tired or having little energy: not at all 5. Poor appetite or overeating: not at all 6. Feeling bad about yourself - or that you are a failure or have let yourself or your family down: not at all 7. Trouble concentrating on things, such as reading the newspaper or watching television: not at all 8. Moving or speaking so slowly that other people could have noticed. Or the opposite - being so fidgety or restless that you have been moving around a lot more than usual: not at all 9. Thoughts that you would be better off or of hurting yourself in some way: not at all Total score: 0 Depression Screening Interpretation: Negative Depression Screening Done: Yes 52558 - PHQ-9 Billing: Yes Source: Developed by Drs. Tien Rhodes, Roseline Deluna, Leonel Huang and colleagues, with an educational adri from [employer]. Thrive Questionnaire Date Thrive assessed: 11/25/23 I am a: Patient What is your living situation today?: I have a steady place to live Within the past 12 months, did the food you bought not last and you didn't have the money to get more?: Never true Within the past 12 months, did you worry whether your food would run out before you got money to buy more?: Never true Do you have trouble paying for medicines?: No Do you have trouble getting transportation to medical appointments?: No Do you have trouble paying your heating and electricity bill?: No Do you have trouble taking care of your child, family member or friend?: No Do you have trouble with day-to-day activities such as bathing, preparing meals, shopping, managing finances, etc.?: No Are you currently unemployed and looking for a job?: No Are you interested in more education?: No THRIVE Score: 0 AUDIT C Alcohol Use Questionnaire (AUDIT-C) 1. How often do you have a drink containing alcohol?: Never Total Score: 0 SHANE-7 AMB Questionnaire SHANE-7 Date SHANE - 7 assessed: 11/25/23 Feeling nervous, anxious, or on edge: 0 = Not at all Not being able to stop or control worryin = Not at all Worrying too much about different things: 0 = Not at all Trouble relaxin = Not at all Being so restless that it is hard to sit still: 0 = Not at all Becoming easily annoyed or irritable: 0 = Not at all Feeling afraid as if something awful might happen: 0 = Not at all Total SHANE-7 score (0-4 normal; 5-9 mild; 10-14 moderate; 15-21 severe): 0 Source: Developed by Drs. Tien Rhodes, Roseline Deluna, Leonel Huang and colleagues, with an educational adri from [employer]. SHANE-7 Assessment Billing SHANE-7 Assessment Tool: SHANE-7 Assessment 24293 Review of Systems Const Denies fever(s), Denies headache(s) and Denies weakness Eyes Denies change in vision ENT Denies dizziness, Denies headache(s), Denies nasal congestion, Denies nasal discharge and Denies sore throat Card Denies chest pain, Denies lightheadedness and Denies dyspnea Resp Denies chest congestion, Denies cough and Denies dyspnea GI Denies abdominal pain, Denies change in bowel habits and Denies heartburn Reports no additional complaints Musc Reports back pain (Intermittent in lower back), Denies arthralgias and Reports stiffness Skin/Breast Denies breast pain, Denies breast mass, Denies lesions and Denies rash Neuro Denies dizziness, Denies headache(s) and Denies weakness Psych Reports no additional complaints Endo Reports no additional complaints Vijay/Lymph Reports no additional complaints Aller/Immun Reports no additional complaints Physical exam (Primary Care) Vital Signs: Last Vital Signs Pulse 69 11/25/23 14:19 BP 120/72 11/25/23 14:19 Pulse Ox 97 11/25/23 14:19 Oxygen Delivery Method Room Air 11/25/23 14:19 BMI result Body Mass Index 45.7 BMI Assessment/Plan discussion: High BMI High, discussed plan: lifestyle, weight reduction, dietary and physical activity Tobacco/Smoking Status: Tobacco use Status Tobacco use date assessed 11/25/23 11/25/23 14:21 Patient Tobacco Use Status Former Tobacco user 11/25/23 14:21 Tobacco use type Cigarette 11/25/23 14:21 e-Cigarette/Vaping Use Never Used 11/25/23 14:21 PHQ-9: PHQ-9 Score PHQ-9: Total score 0 11/25/23 15:02 Depression Screening Interpretation: Negative Thrive Assessment: Date of Thrive Assessment Date Thrive assessed 11/25/23 11/25/23 14:33 Const Other: Alert oriented x3, morbidly obese, no acute distress noted Orientation/consciousness: patient oriented x3 Eyes General: appearance normal, both eyes and all related structures Neck Other: Supple no lymphadenopathy, thyroid nonpalpable Resp Auscultation: clear to auscultation bilaterally Cardio Other: S1-S2 present regular rate and rhythm GI Palpation (GI): Soft to palpation, nontender and no guarding Auscultation: normal bowel sounds General: Yes no CVA tenderness Back/Spine/Pelvis Back: no CVA tenderness Skin General skin exam: no rashes or lesions noted Neuro General: patient oriented x3, gait normal, tone normal, moves all extremities, Normal light touch and pain sensation, no focal motor deficits and CN's II-XI intact bilaterally Extrem General: Yes full ROM, Yes no joint enlargement, Yes no clubbing, cyanosis or edema, Yes no calf tenderness and Yes normal gait Psych Appearance: grossly normal and well kempt Mental Status: mental status grossly normal Speech and movement: Normal speech and movement present Affect: normal affect Thought process: Normal thought process present Thought content: Normal thought content present Assessment and Plan Assessment & Plan (1) Annual visit for general adult medical examination with abnormal findings: Code(s): Z00.01 - Encounter for general adult medical examination with abnormal findings Plan: Will check appropriate labs. Recommended dental visit every 6 months and regular eye exams, at least every 2 years. Take adequate calcium in diet and vitamin-D 3 at 2000 IU per cap once a day, in addition to weight-bearing exercises to help maintain good muscle tone and weight control. Instructed to do self-breast exam, and continue with yearly mammogram,, followed by [facility] for her routine Pap and pelvic exam Cologuard ordered today. Patient refusing to get any vaccines (2) Morbid obesity due to excess calories: Code(s): E66.01 - Morbid (severe) obesity due to excess calories Plan: . Discussed need to increase activity and weight reduction. Suggested following a Mediterranean diet is a healthy diet that helps, limit food high in fat, sugar, and calories. Eat slowly, pay attention to portion sizes, plan your meals ahead of time, start regular physical activity, at least 150 minutes of moderate intensity exercise, or 90 minutes per week of vigorous exercise. Keeping a food diary, tracking what you eat and your physical activity can help assess what improvements you can make. There are many health problems associated with being overweight/obese, so it is important to improve your diet and exercise. (3) HTN (hypertension): Code(s): I10 - Essential (primary) hypertension Qualifiers: Hypertension type: primary hypertension Qualified Code(s): I10 - Essential (primary) hypertension Plan: Blood pressure at goal of less than 130/80. Continue with following a low sodium diet, getting regular exercise, and lowering stress levels. (4) Impaired fasting glucose: Code(s): R73.01 - Impaired fasting glucose Plan: Your previous fasting blood sugars were elevated above 100 mg/dL. Impaired glucose metabolism increases the risk for developing diabetes mellitus type 2, as well as heart attack and stroke later on. Lifestyle changes that promotes weight loss, healthy eating habits, and regular exercise are important, and can prevent the progression to diabetes (5) Dyslipidemia: Code(s): E78.5 - Hyperlipidemia, unspecified Plan: Last fasting lipid profile showed elevated LDL cholesterol. Stopped taking her statin as recommended by her early childhood special educator due to muscle pain, did not resume taking it will check another fasting lipid panel . Stressed importance of adherence to low-cholesterol diet and regular exercise, at least 30 minutes 3 to 4 times a week. Advised patient to make healthy food choices, eat more fruits, vegetables, whole grains, wild caught fish and low-fat dairy. Limit amount of meat and fried or fatty food products, as well as processed foods and fast foods. (6) Cholelithiases: Code(s): K80.20 - Calculus of gallbladder without cholecystitis without obstruction Qualifiers: Cholelithiasis location: gallbladder Cholecystitis presence: without cholecystitis Plan: Currently asymptomatic Orders: Orders Lipid Panel 11/25/23 E66.01 - Morbid (severe) obesity due to excess calories, E78.5 - Hyperlipidemia, unspecified, I10 - Essential (primary) hypertension, K80.20 - Calculus of gallbladder without cholecystitis without obstruction, R73.01 - Impaired fasting glucose, Z00.01 - Encounter for general adult medical examination with abnormal findings Hemoglobin A1c 11/25/23 E66.01 - Morbid (severe) obesity due to excess calories, E78.5 - Hyperlipidemia, unspecified, I10 - Essential (primary) hypertension, K80.20 - Calculus of gallbladder without cholecystitis without obstruction, R73.01 - Impaired fasting glucose, Z00.01 - Encounter for general adult medical examination with abnormal findings Basic Metabolic Panel Fasting 11/25/23 E66.01 - Morbid (severe) obesity due to excess calories, E78.5 - Hyperlipidemia, unspecified, I10 - Essential (primary) hypertension, K80.20 - Calculus of gallbladder without cholecystitis without obstruction, R73.01 - Impaired fasting glucose, Z00.01 - Encounter for general adult medical examination with abnormal findings Vitamin D 25-OH Total 11/25/23 E66.01 - Morbid (severe) obesity due to excess calories, E78.5 - Hyperlipidemia, unspecified, I10 - Essential (primary) hypertension, K80.20 - Calculus of gallbladder without cholecystitis without obstruction, R73.01 - Impaired fasting glucose, Z00.01 - Encounter for general adult medical examination with abnormal findings Referrals Cologuard Test Z12.11 - Encounter for screening for malignant neoplasm of colon, Z12.12 - Encounter for screening for malignant neoplasm of rectum Coding Level of Care Code Est Pt Prev Care 40-64y(81399) Diagnoses Annual visit for general adult medical examination with abnormal findings Z00.01 Morbid obesity due to excess calories E66.01 Primary hypertension I10 Hypertension type: primary hypertension Impaired fasting glucose R73.01 Dyslipidemia E78.5 Cholelithiases K80.20 Cholelithiasis location: gallbladder Cholecystitis presence: without cholecystitis Additional Codes SHANE-7 Assessment Billing - SHANE-7 Assessment Tool: SHANE-7 Assessment [id number] ([id number])
== END 2023-11-25 15:03 | disposition home or self-care (01) ==
PROVIDERS: PCP Internal Medicine; Visit Provider Internal Medicine
DX: Z00.00 Encounter for general adult medical examination without abnormal findings (principal); E66.01 Morbid (severe) obesity due to excess calories; Z68.42 Body mass index [BMI] 45.0-49.9, adult; I10 Essential (primary) hypertension; R73.01 Impaired fasting glucose; E78.5 Hyperlipidemia, unspecified; K80.20 Calculus of gallbladder without cholecystitis without obstruction
CPT/HCPCS: 99396

== ENCOUNTER 2024-04-19 13:48 | Outpatient (AMB) | payer OTHER, SELFPAY ==
[2024-04-19 13:58] VITALS: BP 120/76; PULSE 72; BMI 44.8
--- NOTE | 2024-04-19 13:58 | A.OFFVIS_ITS ---
Vital Signs 04/19/24 13:58 Height 5 ft 2 in Weight 245 lb 2.464 oz BMI 44.8 BP 120/76 Blood Pressure Location Rt brachial Position Sitting Pulse 72 Pulse Source Pulse Oximeter Intake Visit Reasons: JACQUELINE/LM Intake Note: Patient presents today for follow up on joint pain and fibromyalgia. She was last seen in the office on 09/02/23 by Sarah Merrill. Medical Management Trainer Required: No Accompanied by: Self / Same As Patient Allergies Clindamycin HCl Adverse Reaction (Unknown, Verified 04/19/24 14:04) diarrhea penicillin V Adverse Reaction (Unknown, Verified 04/19/24 14:04) yeast infections Medication List - Last Reconciled 04/19/24 by Marily Whyte MD cholecalciferol (vitamin D3) 25 mcg PO DAILY ibuprofen 600 mg PO Q8H PRN milk thistle 300 mg PO DAILY naproxen sodium 220 mg PO BID PRN tramadol 50 mg PO TID vitamin K2 200 mcg PO DAILY zolpidem 10 mg PO BEDTIME PRN HPI Comments Details: Patient is a 63 y.o. female with HLD, NAFLD, HTN, fibromyalgia and polyarticular OA who presents today for follow up Interval History: Patient last seen 08/2023 with Sarah Merrill. At that time no changes made to medication and patient was stable Today patient reports whole body pain. Has psycho social stressors: takes care of elderly mom and who recently had a heart attack No children Rheumatologic History: Fibromyalgia. Has trialled: - gabapentin - not effective - pregabalin - did not like the side effects - amitriptyline - had nightmares - duloxetine - does not want to take anti depression Current Rheumatology Medication(s): Tramadol 50mg tid Ibuprofen prn PFSH Medical History Vaccine refused by patient Chronic insomnia Varicose veins of leg with swelling Depression with anxiety Impaired fasting glucose Morbid obesity due to excess calories Dyslipidemia Elevated C-reactive protein (CRP) Carpal tunnel syndrome Sciatica Arthritis Ectopic Elevated liver enzymes Fibromyalgia HTN (hypertension) Surgical History H/O tubal ligation History of carpal tunnel surgery of right wrist History of appendectomy Family History Father HTN (hypertension) Heart disease Mother HTN (hypertension) [place]yla Brother Substance use disorder Social History Household Members: Spouse Housing: House Alcohol intake: current Alcohol intake frequency: holidays/special occasions only Patient Tobacco Use Status: Former Tobacco user Tobacco use type: Cigarette e-Cigarette/Vaping Use: Never Used Second Hand Smoke Exposure: No service: No Current occupational status: disabled 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 Sexual orientation: Straight/Heterosexual Gender identity: Female Cognitive needs: No Hearing needs: No Vision needs: Yes Review of Systems Const Details: Review of Systems Constitutional: Denies fever, chills, weight loss ENT: Denies vision changes, eye pain or eye redness, dental caries, dry mouth GI: Denies nausea, vomiting, diarrhea, abdominal pain, change in BM Pulm: Denies SOB, CATALAN, hemoptysis, wheezing Cards: Denies chest pain, palpitations Skin: Denies Raynaud's, rash, nail changes, photosensitivity, CLIENT SUCCESS SPECIALIST: Denies headaches, weakness, paresthesias, recurrent falls MSK: as per HPI All other systems reviewed and are unremarkable except noted above Physical Exam Vital Signs: Last Vital Signs Pulse 72 04/19/24 13:58 BP 120/76 04/19/24 13:58 BMI result Body Mass Index 44.8 Physical Examination CONSTITUITIONAL Patient alert and cooperative. Well appearing and in no apparent painful distress HEENT Conjunctiva and sclera clear. ?Pupils equal round and reactive to light. ?No lymphadenopathy. CHEST/RESPIRATORY SYSTEM Normal respiratory effort and able to speak in complete sentences. ?Clear to auscultation bilaterally. ?No crackles, rales, rhonchi, wheezes heard. CARDIAC SYSTEM Regular rate and rhythm. ?S1 and S2 heard no murmurs. 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 ?No synovitis noted to the MCPs, PIPs or DIPs. ?No tenderness to palpation of these joints. Wrists: ?Full range of motion at the wrists without pain. ?No tenderness to palp ation or synovitis noted to the wrists. Elbows: Full range of motion without pain. No tenderness, weakness, swelling, increased warmth or erythema. Shoulders: Full range of motion without pain. No tenderness, weakness, swelling, increased warmth or erythema. Hips: Full range of motion without pain. Hip bursa: No tenderness to palpation Knees: ?Full range of motion. ?No tenderness, swelling, increased warmth or erythema.?No effusion or crepitations Ankles: Full range of motion. ?No tenderness, swelling, increased warmth or erythema.? Feet: ?Negative squeeze test. ?No tenderness to palpation or swelling of the MTPs. Tender points:??No tenderness to palpation of the neck, shoulders, chest, elbows, hips, buttocks or knees. SKIN Skin intact without rashes. Results Reviewed Results Reviewed: Laboratory Tests 02/19/23 08/30/23 11:25 11:18 WBC 7.2 RBC 4.93 Hgb 14.4 Hct 44.1 Plt Count 288 D ESR 33 H Sodium 143 Potassium 4.3 Chloride 110 H Carbon Dioxide 22 BUN 11 Creatinine 0.69 AST 20 ALT 21 C-Reactive Protein 1.62 H Assessment & Plan Assessment & Plan (1) Fibromyalgia: Code(s): M79.7 - Fibromyalgia Category: Medical Plan: #Fibromyalgia Patient with fibromyalgia, continue to have pain. Has tried multiple agents with either no efficacy or intolerable side effects. Asked if she wanted to trial naltrexone (low dose naltrexone has been shown to be effective for fibromyalgia pain) but patient declined as it can be associated with GI issues. At this time there are limited therapeutic options and I discussed non pharmacologic management as her mainstay including reduced stress and daily stretches. No follow needs to scheduled. Patient can contact the office if she is having a specific flare and requires an eval for steroid injection Pain management referral placed as patient requesting back injections Plan I spent 25 minutes reviewing the record and labs, seeing the patient, discussing the treatment plan and documenting in the medical record ? Orders: Referrals Pain Management Referral M79.7 - Fibromyalgia Coding Level of Care Code Est Pt Level 3 (46817) Diagnoses Fibromyalgia M79.7
== END 2024-04-19 15:26 | disposition home or self-care (01) ==
PROVIDERS: PCP Internal Medicine; Visit Provider Student in an Organized Health Care Education/Training Program
DX: M79.7 Fibromyalgia (principal)
CPT/HCPCS: 99213

== ENCOUNTER → 2024-04-19 13:48 | Outpatient (BNVA) | payer OTHER, SELFPAY | PROVIDERS: PCP Internal Medicine; Visit Provider Student in an Organized Health Care Education/Training Program | DX: M79.7 Fibromyalgia (principal) | CPT/HCPCS: 99212 ==

== ENCOUNTER 2024-05-04 12:51 | Outpatient (AMB) | payer OTHER, SELFPAY ==
[2024-05-04 13:15] VITALS: BP 139/73; PULSE 92; O2SAT 98; BMI 43.8
--- NOTE | 2024-05-04 13:15 | MHC.OFFVIS ---
Vital Signs 05/04/24 13:15 Height 5 ft 2 in Weight 239 lb 6 oz BMI 43.8 BP 139/73 Blood Pressure Location Lt brachial Position Sitting Pulse 92 Pulse Source Pulse Oximeter Pulse Oximetry (%) 98 Oxygen Delivery Method Room Air Intake Visit Reasons: Fibromyalgia Intake Note: Pain today 7/10 Resolution Agent Required: No Accompanied by: Self / Same As Patient Allergies Clindamycin HCl Adverse Reaction (Unknown, Verified 05/04/24 13:16) diarrhea penicillin V Adverse Reaction (Unknown, Verified 05/04/24 13:16) yeast infections HPI Comments Details: Rupinder is a very pleasant 63-year-old female who presents to the office today for evaluation management of her left lower back pain. She has been suffering with this pain for approximately 1 year. Reports it started after she was spending a lot of time in the hospital with her mother, sitting on hard chairs and doing a lot of walking. Patient also suffers from fibromyalgia and states that she does have diffuse pains. She has tried multiple medications for this in the past without improvement. Endorses pain over left PSIS with radiation posteriorly down the thigh to the knee. Denies radiation of the pain to the foot Denies numbness, tingling, weakness of the lower extremity Pain today is rated as a 7/10, constant. Pain is exacerbated by standing, walking, sitting and using the stairs Patient completed physical therapy without improvement of her symptoms. She continues with home exercise program without improvement. She has also tried NSAIDs, topical medications, massage, Tens unit all without improvement Denies red flag symptoms including new loss of bowel, bladder or saddle anesthesia In terms of muscle damage condition is described as cramping, stabbing, pinching, crushing, dull, sore, aching, heavy Pain is negatively impacting patient's sleep, ability to perform activities of daily living, ability to care for self, normal functioning Denies current use of anticoagulant Denies implantable devices, pacemaker defibrillator Denies current use of nicotine, tobacco, alcohol or illicit substances [facility] Medical History Vaccine refused by patient Chronic insomnia Varicose veins of leg with swelling Depression with anxiety Impaired fasting glucose Morbid obesity due to excess calories Dyslipidemia Elevated C-reactive protein (CRP) Carpal tunnel syndrome Sciatica Arthritis Ectopic Elevated liver enzymes Fibromyalgia HTN (hypertension) Surgical History H/O tubal ligation History of carpal tunnel surgery of right wrist History of appendectomy Family History Father HTN (hypertension) Heart disease Mother HTN (hypertension) [place] Brother Substance use disorder Social History Household Members: Spouse Housing: House Alcohol intake: current Alcohol intake frequency: holidays/special occasions only Patient Tobacco Use Status: Former Tobacco user Tobacco use type: Cigarette e-Cigarette/Vaping Use: Never Used Second Hand Smoke Exposure: No service: No Current occupational status: disabled 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 Answers questions appropriately. Fully engaged in examination. Skin: warm, dry, intact HEENT: Normocephalic. Hearing intact. Cardiac: External chest normal in appearance. Respiratory: No cough, audible wheezing or stridor. Abdomen: without gross distension. MS: No obvious swelling or deformities. Able to stand on bilateral tiptoes and bilateral heels.? Able to transition from sit to stand unassisted. Ambulates with bilaterally normal heel strike and toe off Nontender over midline lumbar vertebrae and lumbar paraspinal muscles Tenderness over left PSIS Left SI: [place] positive, thigh thrust positive, SI compression positive SLR negative bilaterally Neurological: Oriented to person, place, time and situation. Thought process intact. No gait abnormalities appreciated. Psychiatric: Appropriate mood and affect. Good judgment and insight. Results Reviewed Results Reviewed: 03/2020 XR/XR lumbar spine 2-3V FINDINGS: The transitional lumbosacral anatomy with a lumbarized S1 vertebra is not as well-seen on the current exam. Slight 3 mm retrolisthesis L3 on L4. There is subtle 2 mm grade 1 anterolisthesis of L4 on L5. This appearance is similar to the prior study. Vertebral body heights are maintained without compression fracture. Minimal loss of disc height at L5-S1. Severe lower lumbar facet arthropathy. Abdominal aortic vascular calcifications. IMPRESSION: Similar appearance of degenerative changes of the lower lumbar spine. No acute osseous abnormality. Assessment & Plan Assessment & Plan (1) Sacroiliac joint dysfunction of left side: Code(s): M53.3 - Sacrococcygeal disorders, not elsewhere classified Category: Medical (2) Fibromyalgia: Code(s): M79.7 - Fibromyalgia Category: Medical Plan Patient presented to the office today for evaluation and management of her left lower back pain History, physical exam and provocative testing consistent with left sacroiliac joint dysfunction. She is also suffering from fibromyalgia. She has exhausted conservative therapy including NSAIDs, PT, home exercise program, massage, TENS unit, topical medications all without improvement of her pain Discussed options for treatment including diagnostic interventional testing, epidural steroid injections, peripheral nerve stimulation with Sprint, RFA and more permanent neuromodulation. X-ray ordered to evaluate New prescription for Savella 12.5 mg p.o. daily Will schedule for fluoroscopy guided left diagnostic sacroiliac joint injection with local anesthetic. All questions and concerns have been answered and patient agrees with the plan. Follow up after injections and sooner if needed. Orders: Orders XR hip LT w PEL1V Today M53.3 - Sacrococcygeal disorders, not elsewhere classified Medications: New milnacipran (Savella) 12.5 mg PO DAILY 30 tabs 1RF Coding Level of Care Code New Pt Level 4 (02343) Complex EM visit Add On G2211 Diagnoses Sacroiliac joint dysfunction of left side M53.3 Fibromyalgia M79.7
== END 2024-05-04 14:02 | disposition home or self-care (01) ==
PROVIDERS: PCP Internal Medicine; Visit Provider Registered Nurse Emergency
DX: M53.3 Sacrococcygeal disorders, not elsewhere classified (principal); M79.7 Fibromyalgia
CPT/HCPCS: 99204; G2211

== ENCOUNTER → 2024-05-04 12:51 | Outpatient (BNVA) | payer OTHER, SELFPAY | PROVIDERS: PCP Internal Medicine; Visit Provider Registered Nurse Emergency | DX: M79.7 Fibromyalgia (principal); M53.3 Sacrococcygeal disorders, not elsewhere classified | CPT/HCPCS: 99202 ==

== ENCOUNTER 2024-05-23 12:26 | Outpatient (REF) | payer OTHER, SELFPAY ==
--- NOTE | ~2024-05-23 | XR_ITS ---
EXAMINATION: XR HIP, LEFT CLINICAL INFORMATION: M53.3 - Sacrococcygeal disorders, not elsewhere classified COMPARISON: None available. TECHNIQUE: Two views of the left hip. FINDINGS: There is anatomical alignment. There is no fracture, dislocation, or suspicious bone lesion. There are early osteoarthritic changes of the left hip joint with gross preservation of the joint space. The femoral head is normal in contour without AVN. A small bilobed corticated calcification lateral to the superior acetabulum is most consistent with a small focus of myositis ossificans. This is of doubtful clinical significance. There are sclerotic changes in the symphysis pubis. Mild arthritic changes in the left SI joint. Soft tissues otherwise normal. XR/XR hip LT 1V IMPRESSION: 1. No acute findings left hip. 2. Early degenerative hip arthritis. Electronically signed by: Billy Bailey MD 05/29/2024 04:05 PM [facility] [place]
[2024-05-23 16:17] LABS: PLT CLUMP 1; SCAN SMEAR FLAG 1
[2024-05-23 16:19] LABS: Basophils Absolute Auto 0.1 X10*3/uL (0.0-0.2); Basophils Percent Auto 0.7 % (0-2); Eosinophils Absolute Auto 0.2 X10*3/uL (0.0-0.4); Eosinophils Percent Auto 2.5 % (0-4); Hematocrit 47.3 % (37.0-47.0); Hemoglobin 15.2 g/dl (12.0-16.0); Imm Gran Abs Auto 0.02 X10*3/uL (0.00-0.03); Imm Gran Pct Auto 0.3 % (0.0-0.4); Lymphocytes Absolute Auto 2.2 X10*3/uL (1.2-4.9); Lymphocytes Percent Auto 31.4 % (20-40); MANUAL DIFF FLAG SCAN; Mean Corpuscular HGB Conc 32.1 g/dl (31.0-35.0); Mean Corpuscular Hemoglobin 28.6 pg (27.0-33.0); Mean Corpuscular Volume 89.1 fL (80.0-98.0); Monocytes Absolute Auto 0.4 X10*3/uL (0.1-1.2); Monocytes Percent Auto 5.1 % (2-11); Neutrophils Absolute Auto 4.2 x10*3/uL (2.0-8.3); Red Blood Count 5.31 X10*6/uL (4.20-5.50); Red Cell Distribution Width 14.2 % (11.0-16.0)
[2024-05-23 16:28] LABS: Estimated Average Glucose 128 mg/dL; Hemoglobin A1c % 6.1 % (<6.0)
[2024-05-23 17:09] LABS: Alanine Aminotransferase 29 U/L (0-31); Albumin Level 4.1 g/dL (3.5-5.0); Anion Gap 13 (12-20); Aspartate Amino Transferase 27 U/L (5-31); Bilirubin Total 0.4 mg/dL (0.0-1.0); Blood Urea Nitrogen 11 mg/dL (9-16); C Reactive Protein 2.03 mg/dL (< or = 0.50); Calcium 9.6 mg/dL (8.4-10.2); Carbon Dioxide 24 mmol/L (22-29); Chloride 109 mmol/L (96-108); Cholesterol 268 mg/dL (<200); Estimated Glomerular Filt Rate > 60; Glucose Fasting 129 mg/dL (60-99); Glucose Random 129 mg/dL (60-115); HDL Cholesterol 47 mg/dL (>40); LDL Cholesterol Calculated 195 mg/dL (<100); Potassium 4.6 mmol/L (3.3-5.1); Sodium 141 mmol/L (135-145); Total Protein 7.5 g/dL (6.5-8.0); Triglycerides 134 mg/dL (<150)
[2024-05-23 17:22] LABS: Alkaline Phosphatase 81 U/L (39-117); Platelet Count 138 X10*3/uL (160-400); White Blood Count 7.1 X10*3/uL (4.8-10.8)
[2024-05-23 17:23] LABS: SLIDE REVIEW VERIFIED
[2024-05-23 17:25] LABS: Vitamin D 25-OH Total 46.3 ng/mL (>30)
[2024-05-23 19:01] LABS: Erythrocyte Sedimentation Rate 36 MM/HR (0-20)
== END 2024-05-23 12:27 | disposition home or self-care (01) ==
LOC: HO.HMGCX 12:26
PROVIDERS: PCP Internal Medicine; Referring Provider Nurse Practitioner Family; Visit Provider Internal Medicine
DX: Z00.01 Encounter for general adult medical examination with abnormal findings (principal); E66.01 Morbid (severe) obesity due to excess calories; I10 Essential (primary) hypertension; R73.01 Impaired fasting glucose; E78.5 Hyperlipidemia, unspecified; K80.20 Calculus of gallbladder without cholecystitis without obstruction; M25.50 Pain in unspecified joint; M79.7 Fibromyalgia; M53.3 Sacrococcygeal disorders, not elsewhere classified
CPT/HCPCS: 36415; 73501; 80048; 80053; 80061; 82306; 83036; 85025; 85652; 86140

== ENCOUNTER → 2024-05-23 13:20 | Outpatient (BNV) | payer OTHER, SELFPAY | PROVIDERS: PCP Internal Medicine; Referring Provider Nurse Practitioner Family; Visit Provider Radiology Diagnostic Radiology | DX: M53.3 Sacrococcygeal disorders, not elsewhere classified (principal) | CPT/HCPCS: 73502 ==

== ENCOUNTER 2024-06-01 11:19 | Outpatient (AMB) | payer OTHER, SELFPAY ==
[2024-06-01 11:50] VITALS: BP 100/70; PULSE 72; O2SAT 96; BMI 44.3
--- NOTE | 2024-06-01 11:50 | A.OFFPC_ITS ---
Vital Signs 06/01/24 11:50 Height 5 ft 2 in Weight 242 lb BMI 44.3 BP 100/70 Blood Pressure Location Lt brachial Position Sitting Pulse 72 Pulse Source Pulse Oximeter Pulse Oximetry (%) 96 Oxygen Delivery Method Room Air Intake Visit Reasons: 6 month follow up Intake Note: Pt is here today for her 6mo. f/u Allergies Clindamycin HCl Adverse Reaction (Unknown, Verified 06/05/24 00:03) diarrhea penicillin V Adverse Reaction (Unknown, Verified 06/05/24 00:03) yeast infections Medication List - Last Reconciled 06/01/24 by Saige Grewal MD cholecalciferol (vitamin D3) 25 mcg PO DAILY ibuprofen 600 mg PO Q8H PRN milk thistle 300 mg PO DAILY naproxen sodium 220 mg PO BID PRN tramadol 50 mg PO TID 90 days vitamin K2 200 mcg PO DAILY zolpidem 10 mg PO BEDTIME PRN Tobacco use date assessed: 06/01/24 Dental Screening Dental Screen Date: 06/01/24 Did you have a dental visit in the last 12 months?: No Did you have a dental problem in the last 6 months where you did not have access to dental care?: No Was dental information given to patient?: Patient has dentist HPI 6 month follow up HPI Details 63-year-old lady with obesity, dyslipide leslie, chronic insomnia, prediabetes, here today for follow-up. Patient states that she has not been following any recommended diet, has been indulging herself during the holidays, and states that she is active but does not follow any regular exercise regimen. Recent fasting labs showed marked elevations in her LDL cholesterol now at 195 mg/dL, and fasting glucose and hemoglobin A1c is in the prediabetic range. Patient has repeatedly refused referral to dietitian and starting on any statin in the past. [facility] Medical History Vaccine refused by patient Chronic insomnia Varicose veins of leg with swelling Depression with anxiety Impaired fasting glucose Morbid obesity due to excess calories Dyslipidemia Elevated C-reactive protein (CRP) Carpal tunnel syndrome Sciatica Arthritis Ectopic Elevated liver enzymes Fibromyalgia HTN (hypertension) Surgical History H/O tubal ligation History of carpal tunnel surgery of right wrist History of appendectomy Family History Father HTN (hypertension) Heart disease Mother HTN (hypertension) [place]hinia Brother Substance use disorder Social History Household Members: Spouse Housing: House Alcohol intake: current Alcohol intake frequency: holidays/special occasions only Patient Tobacco Use Status: Former Tobacco user Tobacco use type: Cigarette e-Cigarette/Vaping Use: Never Used Second Hand Smoke Exposure: No service: No Current occupational status: disabled 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 Sexual orientation: Straight/Heterosexual Gender identity: Female Cognitive needs: No Hearing needs: No Vision needs: Yes Questionnaire Thrive Questionnaire Date Thrive assessed: 05/26/24 I am a: Patient What is your living situation today?: I have a place to live, but I am worried about losing it in the future Within the past 12 months, did the food you bought not last and you didn't have the money to get more?: Never true Within the past 12 months, did you worry whether your food would run out before you got money to buy more?: Often true Do you have trouble paying for medicines?: No Do you have trouble getting transportation to medical appointments?: No Do you have trouble paying your heating and electricity bill?: No Do you have trouble taking care of your child, family member or friend?: No Do you have trouble with day-to-day activities such as bathing, preparing meals, shopping, managing finances, etc.?: Yes Are you currently unemployed and looking for a job?: No Are you interested in more education?: No Please select the resources that you would like help with: None Currently or been in a relationship where the following occur: No concerns reported THRIVE Score: 2 AUDIT C Alcohol Use Questionnaire (AUDIT-C) 1. How often do you have a drink containing alcohol?: Monthly or less 2. How many drinks containing alcohol do you have on a typical day when you are drinking?: 1 or 2 3. How often do you have six or more drinks on one occasion?: Never Total Score: 1 Review of Systems Const All systems reviewed & are unremarkable except as noted in HPI and below Physical exam (Primary Care) Vital Signs: Last Vital Signs Pulse 72 06/01/24 11:50 BP 100/70 06/01/24 11:50 Pulse Ox 96 06/01/24 11:50 Oxygen Delivery Method Room Air 06/01/24 11:50 BMI result Body Mass Index 44.3 BMI Assessment/Plan discussion: High BMI High, discussed plan: lifestyle, weight reduction, dietary and physical activity Tobacco/Smoking Status: Tobacco use Status Tobacco use date assessed 06/01/24 06/01/24 11:52 Patient Tobacco Use Status Former Tobacco user 06/01/24 11:52 Tobacco use type Cigarette 06/01/24 11:52 e-Cigarette/Vaping Use Never Used 06/01/24 11:52 PHQ-9: PHQ-9 Score PHQ-9: Total score 6 06/05/24 00:05 Thrive Assessment: Date of Thrive Assessment Date Thrive assessed 05/26/24 06/01/24 11:52 Currently or been in a relationship where the following occur: No concerns reported Const Other: Alert oriented x3, morbidly obese, no acute distress noted General: no acute distress and alert Nutritional Appearance: obese morbidly obese Orientation/consciousness: patient oriented x3 Eyes General: appearance normal, both eyes and all related structures Neck Other: Supple no lymphadenopathy, thyroid nonpalpable Resp Auscultation: clear to auscultation bilaterally Cardio Other: S1-S2 present regular rate and rhythm GI Palpation (GI): Soft to palpation, nontender and no guarding Auscultation: normal bowel sounds Neuro General: patient oriented x3, gait normal, tone normal, moves all extremities, Normal light touch and pain sensation, no focal motor deficits and CN's II-XI intact bilaterally Extrem General: Yes full ROM, Yes no joint enlargement, Yes no clubbing, cyanosis or edema, Yes no calf tenderness and Yes normal gait Results Reviewed Results Reviewed: Name: Rupinder Meng Age/Sex: 63/F : 1960 Unit#: [id number] Attend Dr: Saige Grewal MD Re05/23/24 Status: DEP REF Location: [facility] Disch: SPEC : [id number] JESSICA: 05/23/24-1230 STATUS: COMP REQ : [id number] RECD: 05/23/24-1604 [facility] DR: Sarah Merrill MARKETING TEACHER- COMP: 05/23/24-1228 ENTERED: 05/23/24-[address] [facility] [address]: Saige Grewal MD ORDERED: CBC Auto Diff, SLIDE REVIEW Test Result Flag Reference WBC 7.1 4.8-10.8 X10*3/uL RBC 5.31 4.20-5.50 X10*6/uL HGB 15.2 12.0-16.0 g/dl HCT 47.3 H 37.0-47.0 % MCV 89.1 80.0-98.0 fL MCH 28.6 27.0-33.0 pg MCHC 32.1 31.0-35.0 g/dl RDW 14.2 11.0-16.0 % PLT 138 # L 160-400 X10*3/uL MPV 11.0 9.4-12.3 fL Neut Pct Auto 60.0 45-73 % ImGran Pct Auto 0.3 0.0-0.4 % Lymp Pct Auto 31.4 20-40 % Gordon Pct Auto 5.1 2-11 % Eos Pct Auto 2.5 0-4 % Baso Pct Auto 0.7 0-2 % NRBC Pct Auto 0.0 0.0-0.2 /100WBC ANC Neut Abs # 4.2 2.0-8.3 x10*3/uL ImGran Abs Auto 0.02 0.00-0.03 X10*3/uL Lymph Abs Auto 2.2 1.2-4.9 X10*3/uL Gordon Abs Auto 0.4 0.1-1.2 X10*3/uL Eos Abs Auto 0.2 0.0-0.4 X10*3/uL Baso Abs Auto 0.1 0.0-0.2 X10*3/uL NRBC Abs Auto 0.000 0.0-0.012 X10*3/uL SLIDE REVIEW VERIFIED Name: Rupinder Meng Age/Sex: 63/F : 1960 Unit#: [id number] Attend Dr: Saige Grewal MD Re05/23/24 Status: DEP REF Location: [facility] Disch: SPEC : [id number] JESSICA: 05/23/24-1230 STATUS: COMP REQ : [id number] RECD: 05/23/[address]: Saige Grewal MD COMP: 05/23/24-1724 ENTERED: 05/23/24-[address]: Sarah Merrill MARKETING TEACHER-BC ORDERED: CMP, Met Prof Fast, C Reactive Prot, Lipid Panel, Vitamin D 25-OH Test Result Flag Reference Sodium 141 135-145 mmol/L Potassium 4.6 3.3-5.1 mmol/L CL 109 H 96-108 mmol/L CO2 24 22-29 mmol/L Gap 13 12-20 BUN 11 9-16 mg/dL Creat 0.74 0.5-1.4 mg/dL eGFR > 60 Chronic Kidney Disease: Estimated GFR < 60 mL/min/1.73m2 Severe Kidney Disease: Estimated GFR < 15 mL/min/1.73m2 Glucose, Random 129 H 60-115 mg/dL FBS 129 H 60-99 mg/dL A fasting glucose of 126 mg/dl or greater on more than one occasion is considered diagnostic of diabetes. CA 9.6 8.4-10.2 mg/dL Total Bili 0.4 0.0-1.0 mg/dL AST (GOT) 27 5-31 U/L ALT (GPT) 29 0-31 U/L CRP 2.03 H < or = 0.50 mg/dL Protein, Total 7.5 6.5-8.0 g/dL Alb 4.1 3.5-5.0 g/dL Triglyceride 134 <150 mg/dL Desirable Triglyceride: less than 150 mg/dL Borderline High Triglyceride 150-199 mg/dL High Triglyceride: 200-499 mg/dL Very High Triglyceride: greater than or equal to 5OO mg/dL Cholesterol 268 H <200 mg/dL Desirable Cholesterol: less than 200 mg/dL Borderline High Cholesterol: 200-239 mg/dL High Cholesterol: greater than 239 mg/dL LDL Calculated 195 H <100 mg/dL Desirable LDL: less than 100 mg/dL Near Optimal/Above Optimal LDL: 110-129 mg/dL Borderline High LDL: 130-159 mg/dL High LDL: 160-189 mg/dL Very High LDL: greater than or equal to 190 mg/dL HDL 47 >40 mg/dL Desirable HDL: greater than 40 mg/dL Note: This HDL assay may give artificially low results in patients with liver disease. Alk Phos 81 39-117 U/L Vit D 25-OH Tot 46.3 >30 ng/mL Health Based Reference Values* < 20 ng/mL Deficient 20-30 ng/mL Insufficient > 30 ng/mL Sufficient Laboratory Tests 10/01/22 05/23/24 11:44 12:30 Estimat Average Glucose 128 128 Hemoglobin A1c % 6.1 6.1 H Coding Level of Care Code Est Pt Level 4 (24030) Complex EM visit Add On G2211 Diagnoses Dyslipidemia E78.5 Impaired fasting glucose R73.01 Morbid obesity due to excess calories E66.01 Assessment & Plan Assessment & Plan (1) Dyslipidemia: Code(s): E78.5 - Hyperlipidemia, unspecified Category: Medical Plan: Reviewed recent fasting lab results with patient which showed marked elevations in her LDL cholesterol. Patient refusing to start any statins at present time nor does she want referral for nutritional consult. States that she will lower cholesterol levels through diet and exercise. Has had this discussion in the past with not much improvement noted, patient aware of the complications that is involved with continued high cholesterol levels, understands the risks of l eaving elevations in cholesterol on treated. Still refusing statins. Will repeat another fasting lipid panel in 3 months (2) Impaired fasting glucose: Code(s): R73.01 - Impaired fasting glucose Category: Medical Plan: Your previous fasting blood sugars were elevated above 100 mg/dL with hemoglobin A1c now at 6.1%. Impaired glucose metabolism increases the risk for developing diabetes mellitus type 2, as well as heart attack and stroke later on. Lifestyle changes that promotes weight loss, healthy eating habits, and regular exercise are important, and can prevent the progression to diabetes (3) Morbid obesity due to excess calories: Code(s): E66.01 - Morbid (severe) obesity due to excess calories Category: Medical Plan: Discussed need to increase activity and wt reduction. Advised to follow Mediterranean diet, limit foods high in fat, sugar, and calories, eat slowly, pay attention to portion sizes, plan your meals ahead of time, start regular physical activity 150 minutes of moderate intensity exercise or 90 minutes/week of vigorous exercise. Declines referral to weight management clinic Orders: Orders Lipid Panel 08/15/24 E66.01 - Morbid (severe) obesity due to excess calories, E78.5 - Hyperlipidemia, unspecified, R73.01 - Impaired fasting glucose Basic Metabolic Panel Fasting 08/15/24 E66.01 - Morbid (severe) obesity due to excess calories, E78.5 - Hyperlipidemia, unspecified, R73.01 - Impaired fasting glucose Hemoglobin A1c 08/15/24 E66.01 - Morbid (severe) obesity due to excess calories, E78.5 - Hyperlipidemia, unspecified, R73.01 - Impaired fasting glucose
== END 2024-06-01 12:24 | disposition home or self-care (01) ==
PROVIDERS: PCP Internal Medicine; Visit Provider Internal Medicine
DX: E78.5 Hyperlipidemia, unspecified (principal); R73.01 Impaired fasting glucose; E66.01 Morbid (severe) obesity due to excess calories; Z68.41 Body mass index [BMI] 40.0-44.9, adult

== ENCOUNTER → 2024-06-01 11:19 | Outpatient (BNVA) | payer OTHER, SELFPAY | PROVIDERS: PCP Internal Medicine; Visit Provider Internal Medicine | DX: E78.5 Hyperlipidemia, unspecified (principal); R73.01 Impaired fasting glucose; E66.01 Morbid (severe) obesity due to excess calories | CPT/HCPCS: 99212 ==

== ENCOUNTER 2024-06-02 13:48 | Outpatient (AMB) | payer OTHER, SELFPAY ==
[2024-06-02 13:49] VITALS: BMI 44.3
--- NOTE | 2024-06-02 13:49 | A.OFFVIS_ITS ---
Vital Signs 06/02/24 13:49 Height 5 ft 2 in Weight 242 lb BMI 44.3 Intake Visit Reasons: X-RAY FOLLOW UP Allergies Clindamycin HCl Adverse Reaction (Unknown, Verified 06/02/24 13:49) diarrhea penicillin V Adverse Reaction (Unknown, Verified 06/02/24 13:49) yeast infections HPI Comments Details: Telephone visit completed today for follow-up, review recent x-ray X-rays reviewed, results as per below Patient states she has not started this available yet, it was sent to a different pharmacy than she was expecting. She is requesting this be sent to her regular pharmacy She is still awaiting a call to schedule diagnostic SI joint injection Prior: Rupinder is a very pleasant 63-year-old female who presents to the office today for evaluation management of her left lower back pain. She has been suffering with this pain for approximately 1 year. Reports it started after she was spending a lot of time in the hospital with her mother, sitting on hard chairs and doing a lot of walking. Patient also suffers from fibromyalgia and states that she does have diffuse pains. She has tried multiple medications for this in the past without improvement. Endorses pain over left PSIS with radiation posteriorly down the thigh to the knee. Denies radiation of the pain to the foot Denies numbness, tingling, weakness of the lower extremity Pain today is rated as a 7/10, constant. Pain is exacerbated by standing, walking, sitting and using the stairs Patient completed physical therapy without improvement of her symptoms. She continues with home exercise program without improvement. She has also tried NSAIDs, topical medications, massage, Tens unit all without improvement Denies red flag symptoms including new loss of bowel, bladder or saddle anesthesia In terms of muscle damage condition is described as cramping, stabbing, pinching, crushing, dull, sore, aching, heavy Pain is negatively impacting patient's sleep, ability to perform activities of daily living, ability to care for self, normal functioning Denies current use of anticoagulant Denies implantable devices, pacemaker defibrillator Denies current use of nicotine, tobacco, alcohol or illicit substances [facility] Medical History Vaccine refused by patient Chronic insomnia Varicose veins of leg with swelling Depression with anxiety Impaired fasting glucose Morbid obesity due to excess calories Dyslipidemia Elevated C-reactive protein (CRP) Carpal tunnel syndrome Sciatica Arthritis Ectopic Elevated liver enzymes Fibromyalgia HTN (hypertension) Surgical History H/O tubal ligation History of carpal tunnel surgery of right wrist History of appendectomy Family History Father HTN (hypertension) Heart disease Mother HTN (hypertension) [place]rhinia Brother Substance use disorder Social History Household Members: Spouse Housing: House Alcohol intake: current Alcohol intake frequency: holidays/special occasions only Patient Tobacco Use Status: Former Tobacco user Tobacco use type: Cigarette e-Cigarette/Vaping Use: Never Used Second Hand Smoke Exposure: No service: No Current occupational status: disabled 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 Sexual orientation: Straight/Heterosexual Gender identity: Female Cognitive needs: No Hearing needs: No Vision needs: Yes Review of Systems Const All systems reviewed & are unremarkable except as noted in HPI and below Physical Exam Vital Signs: BMI result Body Mass Index 44.3 Telephone visit only, vital signs and physical exam deferred Telehealth Telehealth Telehealth Platform: Telephone Location of provider rendering services: practice address Location of patient: address on file Patient Identification confirmed using: Name, : Yes Telehealth method: voice only Patient verbally consented to treatment: Yes Patient verbally consented to billing insurance company: Yes Patient informed of any privacy concerns related to visit: Yes Minutes spent on Phone/Video with Pt.: 8 Results Reviewed Results Reviewed: 05/23/24 XR/XR hip LT 1V FINDINGS: There is anatomical alignment. There is no fracture, dislocation, or suspicious bone lesion. There are early osteoarthritic changes of the left hip joint with gross preservation of the joint space. The femoral head is normal in contour without AVN. A small bilobed corticated calcification lateral to the superior acetabulum is most consistent with a small focus of myositis ossificans. This is of doubtful clinical significance. There are sclerotic changes in the symphysis pubis. Mild arthritic changes in the left SI joint. Soft tissues otherwise normal. IMPRESSION: 1. No acute findings left hip. 2. Early degenerative hip arthritis. 03/2020 XR/XR lumbar spine 2-3V FINDINGS: The transitional lumbosacral anatomy with a lumbarized S1 vertebra is not as well-seen on the current exam. Slight 3 mm retrolisthesis L3 on L4. There is subtle 2 mm grade 1 anterolisthesis of L4 on L5. This appearance is similar to the prior study. Vertebral body heights are maintained without compression fracture. Minimal loss of disc height at L5-S1. Severe lower lumbar facet arthropathy. Abdominal aortic vascular calcifications. IMPRESSION: Similar appearance of degenerative changes of the lower lumbar spine. No acute osseous abnormality. Assessment & Plan Assessment & Plan (1) Sacroiliac joint dysfunction of left side: Code(s): M53.3 - Sacrococcygeal disorders, not elsewhere classified Category: Medical (2) Fibromyalgia: Code(s): M79.7 - Fibromyalgia Category: Medical Plan Telephone visit completed today for follow up, review recent x-ray X-ray reviewed, results as per above. Continue with plan for fluoroscopy guided left diagnostic sacroiliac joint injection with local anesthetic. New prescription sent for Savella, patient requested this be transmitted to a [facility] pharmacy. She has not started taking it yet. All questions and concerns have been answered and patient agrees with the plan. Follow up after injections and sooner if needed. Medications: Refilled milnacipran (Savella) 12.5 mg PO DAILY 30 tabs 1RF Coding Level of Care Code Tele Est Pt Level 3 (34289) Complex EM visit Add On G2211 Diagnoses Sacroiliac joint dysfunction of left side M53.3 Fibromyalgia M79.7
== END 2024-06-02 13:59 | disposition home or self-care (01) ==
LOC: HO.PMC 13:48
PROVIDERS: PCP Internal Medicine; Visit Provider Registered Nurse Emergency
DX: M53.3 Sacrococcygeal disorders, not elsewhere classified (principal); M79.7 Fibromyalgia
CPT/HCPCS: 98016

== ENCOUNTER → 2024-06-02 13:48 | Outpatient (BNVA) | payer OTHER, SELFPAY | PROVIDERS: PCP Internal Medicine; Visit Provider Registered Nurse Emergency ==

== ENCOUNTER 2024-07-06 06:15 | Outpatient (REF) | payer OTHER, SELFPAY ==
--- OUTSIDE RECORDS SUMMARY | 2024-07-06 06:16 | XMS_ITS | Clinical Summary ---
Author Organization 175 [facility] Address [address] [place] [address] Phone Care Team Providers Care Payroll Administrative Assistant Name Role Phone Saige Grewal MD Primary Care Provider Allergies Active Allergy Reactions Criticality Noted Date Comments Clindamycin Hcl Diarrhea 05/06/2007 Other Reaction(s): Rash/Dermatitis Penicillin V Potassium Nausea And Vomiting 04/17 Medications clindamycin (CLEOCIN T) 1 % lotion Apply topically 2 times daily. Active cyclobenzaprine (FLEXERIL) 10 mg tablet Take 10 mg by mouth at bedtime. Active diclofenac (VOLTAREN) 1 % topical gel Apply 4 g topically 2 times daily. 3 Active ibuprofen (IBU) 800 mg tablet 1 TABLET 3 TIMES DAILY 7 Active LORazepam (ATIVAN) 0.5 mg tablet Take 0.5 mg by mouth every 6 hours as needed. Active traMADoL (ULTRAM) 50 mg tablet Take 50 mg by mouth every 6 hours as needed. Active zolpidem (AMBIEN) 10 mg tablet Take 1 Tab by mouth at bedtime as needed. Active Hospital, Clinic, or Other Facility Administered Medication Ordered Dose Route Frequency Start Date End Date Status lidocaine (PF) (XYLOCAINE-MPF) 1 % injection 0.5 mLIndications:Tendin itis of right ankle .5 mL inj Once PRN Procedure 06/15/2024 06/15/2024 Ended triamcinolone acetonide (KENALOG-40) 40 mg/mL injection 20 mgIndications:Tendin itis of right ankle 20 mg IAtc Once PRN Procedure 06/15/2024 06/15/2024 Ended Active Problems Problem Noted Date Diagnosed Date Morbid obesity with BMI of 40.0-44.9, adult 09/2023 Carpal tunnel syndrome, bilateral 12/17/2017 Cervical spondylosis 12/17/2017 Fibromyalgia 12/17/2017 Impaired fasting glucose 12/17/2017 Psoriatic arthritis 12/17/2017 Hyperlipidemia 04/18/2008 Degenerative joint disease of sacroiliac joint 1 07/07/2006 Depression 05/06/2007 Encounters Date Type Department Care Team Description 06/15/2024 10:45 AM EST Office Visit Orthopedic Surgery [place] [address] [phone] Dusty Solomon DPM Bursitis of right foot (Primary Dx); Tailor's bunionette, right; Acquired hallux valgus of right foot; Tendinitis of right ankle 04/25/2024 2:00 PM EST Office Visit Orthopedic Surgery [facility] [address] [phone] Dusty Solomon DPM Acquired hallux valgus of right foot (Primary Dx); Tailor's bunionette, right; Bursitis of right foot from Last 3 Months Medical History Medical History Date Comments Carpal tunnel syndrome, bilateral 12/17/2017 DX:Carpal tunnel syndrome, bilateral Cervical spondylosis 12/17/2017 DX:Cervical spondylosis 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 ([facility]) 05/06/2007 DX:Degenerative joint disea se of sacroiliac joint ([facility]) Depression 05/06/2007 DX:Depression Fibromyalgia 12/17/2017 DX:Fibromyalgia Hyperlipidemia 04/18/2008 DX:Hyperlipidemi a Impaired fasting glucose 12/17/2017 DX:Impa ired fasting glucose Morbid obesity with BMI of 4 0.0-44.9, adult ([facility]) 05/06/2007 DX:Morbid obesity with BMI o f 40.0-44.9, adult ([facility]) Psoriatic arthritis ([facility]) 12/17/2017 DX :Psoriatic arthritis ([facility]) Family History Medical History Relation Name Comments Arthritis Father Relation Name Status Comments Father Social History Tobacco Use Types Packs/Day Years Used Date Smoking Tobacco: Former Smokeless Tobacco: Never Alcohol Use Standard Drinks/Week Comments No 0 (1 standard drink = 0.6 oz pur e alcohol) Comments Unknown Sex and Gender Information Value Date Recorded Sex Assigned at Not on file Legal Sex Female 5:59 PM EST Gender Identity Not on file Sexual Orientation Not on file Obstetrics History Last Filed Vital Signs Vital Sign Reading Time Taken Comments Blood Pressure - - Pulse - - Temperature - - Respiratory Rate - - Oxygen Saturation - - Inhaled Oxygen Concentration - - Weight 114 kg (252 lb) 06/15/2024 10:34 AM EST Height 157.5 cm (5' 2.01 ) 06/15/2024 10:[address] Body Mass Index 46.08 06/15/2024 10:34 AM EST Plan of Treatment Upcoming Encounters Date Type Department Care Team (Late st Contact Info) Description 07/24/2024 1:45 PM EDT Office Visit Orthopedic Surgery - [place] [address] [phone] Dusty Solomon, DPM [address] [address] Health Maintenance Due Date Last Done Comments Breast Cancer Screening 1960 DTaP,Tdap,and Td Vaccines (1 - Tdap) 1979 Pneumococcal Vaccine: 50+ Ye ars (1 of 1 - PCV) 2010 Zoster Vaccines (1 of 2) 2010 Cervical Cancer Screening: P ap Smear 07/11/2011 07/11/2008 RSV Immunization Patients 60 + Years Old (1 - Risk 60-74 years 1-dose series) 2020 Cholesterol Screening (Lipid Panel) 04/18/2022 05/26/2007 Colorectal Cancer Screening: Colonoscopy 04/18/2022 Depression Screening 04/18/2022 HIV Screening 04/18/2022 Hepatitis C Screening 04/18/2022 Medicare Annual Wellness Visit 04/18/2022 Social Influencers of Health Screening 04/18/2022 COVID-19 Vaccine (2023-2 5 season) 2024 Influenza Vaccine (#1) 2024 HIB Vaccines Aged Out No longer eligi ble based on patient's age to complete this topic HPV Vaccines Aged Out No longer eligi ble based on patient's age to complete this topic Hepatitis A Vaccines Aged Out No long er eligible based on patient's age to complete this topic Hepatitis B Vaccines Aged Out No long er eligible based on patient's age to complete this topic IPV Vaccines Aged Out No longer eligi ble based on patient's age to complete this topic MMR Vaccines Aged Out No longer eligi ble based on patient's age to complete this topic Meningococcal ACWY Vaccine Aged Out N o longer eligible based on patient's age to complete this topic Meningococcal B Vacine Aged Out No lo nger eligible based on patient's age to complete this topic Pneumococcal Vaccine: Pediat rics (0 to 5 Years) and At-Risk Patients (6 to 64 Years) Aged Out No longer eligi ble based on patient's age to complete this topic RSV Immunization Patients Un rosalia 20 months Aged Out No longer eligible b ased on patient's age to complete this topic Varicella Vaccines Aged Out No longer eligible based on patient's age to complete this topic Procedures Procedure Name Priority Date/Time Associated Diagnosis Comments INJECTION TENDON OR LIGAMENT Routine 06/15/2024 10:45 AM EST Tendinitis of right ankle PAP SMEAR Routine 07/11/2008 LIPID PANEL Routine 05/26/2007 from Last 3 Months or Most Recently Relevant to Health Maintenance Results * Injection tendon or ligament (06/15/2024 10:45 AM EST) Dusty Cope DPM - 06/15/2024 10:45 AM EST Dusty Solomon DPM ? 06/15/2024 11:45 AM Injection tendon or ligament Indications: pain Details: 25 G needle Medications: 0.5 mL lidocaine (PF) 1 %; 20 mg triamcinolone acetonide 40 mg/mL Informed Consent: ??Site: ??Foot ligament tendon Dusty Solomon DPM IN CLINIC/BEDSIDE ORDERAB LES Final Result * Pap Smear (07/11/2008) Pap smear No Interpretation , Abstracted Historical Provider MD HEALTH MAINTENANCE Final Result * (ABNORMAL) Lipid panel (05/26/2007) LDL/HDL Ratio 5(A) 0 - 4 Triglycerides 164(A) 0 - 150 mg/dL Cholesterol 232(A) 0 - 200 mg/dL HDL 47 >=40 mg/dL LDL Cholesterol 153(A) 0 - 100 mg/dL Blood Venous blood specimen / Unknown us Historical Provider LAB BLOOD ORDERABLES Janice l Result from Last 3 Months or Most Recently Relevant to Health Maintenance Insurance [place] [id number] [facility] MEDICARE Member Subscriber Plan / Payer (Ef fective 2017-Present) Name:Rupinder Meng Relation to Subscriber:Self Name:Rupinder Meng Payer ID:[id number] Group ID:[id number] Type:Not on file Address: [facility] [address] [address] Care Teams Payroll Administrative Assistant Relationship Specialty Start Date End Date Saige Grewal MD [address] [facility] [place] [address] PCP - General Internal Medicine 11/24/17
--- OUTSIDE RECORDS SUMMARY | 2024-07-06 06:16 | XMS_ITS | Encounter Summary ---
Author Organization [facility] Address [address] [place] [id number] Care Team Providers Care Welfare Case Worker Name Role Phone Saige Grewal MD Primary Care Provider Reason for Visit * Reason Comments Follow-up Right foot pain Encounter Details Date Type Department Care Team (Late st Contact Info) Description 06/15/2024 10:45 AM EST Office Visit Orthopedic Surgery - [place] [address] [phone] Dusty Solomon DPM [address] [address] Bursitis of right foot (Primary Dx); Tailor's bunionette, right; Acquired hallux valgus of right foot; Tendinitis of right ankle Social History Tobacco Use Types Packs/Day Years Used Date Smoking Tobacco: Former Smokeless Tobacco: Never Alcohol Use Standard Drinks/Week Comments No 0 (1 standard drink = 0.6 oz pur e alcohol) Comments Unknown Sex and Gender Information Value Date Recorded Sex Assigned at Not on file Legal Sex Female 5:59 PM EST Gender Identity Not on file Sexual Orientation Not on file documented as of this encounter Last Filed Vital Signs Vital Sign Reading Time Taken Comments Blood Pressure - - Pulse - - Temperature - - Respiratory Rate - - Oxygen Saturation - - Inhaled Oxygen Concentration - - Weight 114 kg (252 lb) 06/15/2024 10:34 AM EST Height 157.5 cm (5' 2.01 ) 06/15/2024 10:[address] Body Mass Index 46.08 06/15/2024 10:34 AM EST documented in this encounter Progress Notes * Dusty Solomon DPM - 06/15/2024 10:45 AM ESTAssociated Order(s): Injection tendon or ligament Post-Procedure Diagnose(s): Tendinitis of right ankle S Patient presents complaint of chronic pain in her right foot she has pain that comes and goes but is been there for a long time she has lost her pain is in the outer aspect of her right foot and her right great toe she has a bunion deformity but no stresses pain in the outer aspect of chronic pain discomfort feels like she the bone hurts her skin she feels she is a lot of swelling and irritationsarea pain is a 5-7 out of 10 worse activity improves activity denies trauma to the area denies recent radiographs pain predominantly right foot digital left foot overall doing well does note some aching throbbing pain in the top of her right foot she is overall has been doing better pain discomfortshe also had 10 visual analog scale ROS: GENERAL: Pt denies nausea, fever, vomiting, chills, or shortness of breath. Pt in NAD. CARDIOLOGY: pt denies chest pain, palpitations LUNGS: pt denies shortness of breath MUSCULOSKELETAL: See HPI, otherwise no joint pain or swelling, back pain, or muscle pain. SKIN: see HPI, otherwise no lesions, rash or itching NEURO: No persistent headache, weakness or numbness The remainder of the review of systems is noncontributory PAST MEDICAL HISTORY: Patient Active Problem List Diagnosis Code Morbid obesity with BMI of 40.0-44.9, adult ([facility]) E66.01, Z68.41 Depression F32.A Degenerative joint disease of sacroiliac joint ([facility]) M46.1 Hyperlipidemia E78.5 Psoriatic arthritis ([facility]) L40.50 Fibromyalgia M79.7 Cervical spondylosis M47.812 Carpal tunnel syndrome, bilateral G56.03 Impaired fasting glucose R73.01 Status post endoscopic carpal tunnel release Z98.890 SOCIAL HISTORY: Social History Tobacco Use Smoking status: Former Smokeless tobacco: Never Tobacco comments: around the year 1999 she quit Substance Use Topics Alcohol use: No History Last Reviewed by Jesus Myers on 12/16/2020 at 1:50 PM Sections Reviewed Tobacco, Alcohol, Drug Use ACTIVE MEDICATIONS: Current Outpatient Medications Medication Sig Dispense Refill Diclofenac Sodium 1 % Gel Apply 4 g topically 2 times daily. 100 g 2 Diclofenac Sodium 1 % Gel Apply 4 g topically 2 times daily. 100 g 2 lidocaine-prilocaine (EMLA) cream Apply to the top of the right foot twice daily 30 g 1 tramadol (ULTRAM) 50 MG tablet Take 50 mg by mouth every 6 hours as needed. lorazepam (ATIVAN) 0.5 MG tablet Take 0.5 mg by mouth every 6 hours as needed. clindamycin (CLEOCIN T) 1 % lotion Apply topically 2 times daily. Zolpidem Tartrate 10 MG Tab Take 1 Tab by mouth at bedtime as needed. cyclobenzaprine (FLEXERIL) 10 MG tablet Take 10 mg by mouth at bedtime. IBU 800 MG OR TABS 1 TABLET 3 TIMES DAILY 90 0 No current facility-administered medications for this visit. ALLERGIES: Clindamycin hcl and Penicillin v potassium PHYSICAL EXAM: Height 5' 2 (1.575 m), weight 252 lb (114.3 kg), last menstrual period 06/30/2008. Estimated body mass index is 46.09 kg/m?? as calculated from the following: Height as of this encounter: 5' 2 (1.575 m). Weight as of this encounter: 252 lb (114.3 kg). BMI PLAN BMI PODIATRIC EXAMINATION: GENERAL: Patient appears well nourished, with NAD. VASCULAR: Dorsalis pedis pulses are 2/4 bilaterally and Posterior tibial pulses are 2/4 bilaterally. Capillary filling time within normal limits the digits. No pallor on elevation or rubor on dependency. Positive hair growth. No varicosities. Denies rest pain or claudication pain. NEUROLOGICAL: Sharp/dull sensation intact, protective sensation intact 10/10 with 5.07 semmes brant bilaterally, vibratory sensation with tuning fork intact to the tibial tuberosity. ORTHOPEDIC: Good muscle strength 5/5 of all flexors and extensors. Dorsi flexion of ankle ,10 degrees, plantar flexion WNL. No muscle atrophy. DERMATOLOGICAL:.No masses or skin lesions noted. Normal skin temperature, normal skin turgor. BIOMECHANICS: STJ ROM wnl, MTJ ROM wnl, 1st MPJ ROM mild bunion deformity right great toe bunionette deformity with pain ovation of the fifth metatarsal head with bursitis localized soft tissue swelling. Irritation extensor tendon at the inferior aspect of the retinaculum of the right foot IMAGING: Full read within epic Impression 1. Bursitis of right foot 2. Tailor's bunionette, right 3. Acquired hallux valgus of right foot 4. Tendinitis of right ankle PLAN: Pt was seen and examined, history reviewed. - Discussed in detail oral anti-inflammatory medications, resting icing stretching, prefabricated insoles versus custom insoles, steroid injection. - Stretching exercises reviewed in detail with patient - Instructed patient to rest and ice foot at the end of the day Radiographs reviewed discussed with patient surgical options specifically fifth met head resection Sacha bunionectomy - Recommendations given for: Orthotics and insoles New x-ray ordered right foot 3 views Surgery discussed in detail discussed with patient she would likely benefit from a Sacha bunionectomy and fifth metatarsal head partial resection given chronic pain and swelling discussed with patient she does not have to do both procedures as her chief complaint is a tailor's bunionette would recommend pursuing this procedure and isolation if it is a chronic pain her bunion is mild and does not require surgical intervention unless she is chronically painful recovery from the fifth metatarsal head resection would be 6 weeks and protective shoe discussed with patient as is her right foot and she will have to be aware of the fact that she cannot drive during this recovery due to the protective shoe gear required Concerns for tendinitis discussed and reviewed Follow-up in 1 to 2 months Injection of right foot retinacular ligament was performed after consent was obtained. Risks and benefits discussed in detail with patient and include but are not limited to risk of infection risk ofrecurrence . Injection given of half cc 1% lidocaine half cc of Kenalog 40 Injection tendon or ligament Indications: pain Details: 25 G needle Medications: 0.5 mL lidocaine (PF) 1 %; 20 mg triamcinolone acetonide 40 mg/mL Informed Consent: Site: Foot ligament tendon Dusty Solomon DPM documented in this encounter Plan of Treatment Upcoming Encounters Date Type Department Care Team (Late st Contact Info) Description 07/24/2024 1:45 PM EDT Office Visit Orthopedic Surgery - [place] [address] [phone] Dusty Solomon DPM [address] [address] documented as of this encounter Procedures Procedure Name Priority Date/Time Associated Diagnosis Comments INJECTION TENDON OR LIGAMENT Routine 06/15/2024 10:45 AM EST Tendinitis of right ankle documented in this encounter Results * Injection tendon or ligament (06/15/2024 10:45 AM EST) Narrative Dusty Solomon DPM - 06/15/2024 10:45 AM EST Dusty Solomon DPM ? 06/15/2024 11:45 AM Injection tendon or ligament Indications: pain Details: 25 G needle Medications: 0.5 mL lidocaine (PF) 1 %; 20 mg triamcinolone acetonide 40 mg/mL Informed Consent: ??Site: ??Foot ligament tendon us Dusty Solomon DPM IN CLINIC/BEDSIDE ORDERAB LES Final Result documented in this encounter Visit Diagnoses Diagnosis Bursitis of right foot- Primary Tailor's bunionette, right Acquired hallux valgus of right foot Tendinitis of right ankle documented in this encounter Administered Medications Inactive Administered Medications - up to 3 most recent administrations Medication Order MAR Action Action Date Dose Rate Site lidocaine (PF) (XYLOCAINE-MPF) 1 % injection 0.5 mL 0.5 mL, injection, Once PRN Procedure, Starting on Radha 06/15/24 at 1045, For 1 doseIndications:Tendinitis of right ankle Given 06/15/2024 10:45 AM EST 0.5 mL triamcinolone acetonide (KENALOG-40) 40 mg/mL injection 20 mg 20 mg, intra-articular, Once PRN Procedure, Starting on Radha 06/15/24 at 1045, For 1 doseIndications:Tendinitis of right ankle Given 06/15/2024 10:45 AM EST 20 mg documented in this encounter Care Teams Welfare Case Worker Relationship Specialty Start Date End Date Saige Grewal MD [address] [place] [address] PCP - General Internal Medicine 11/24/17 documented as of this encounter
== END 2024-07-06 06:16 | disposition home or self-care (01) ==
LOC: CF 06:15
PROVIDERS: Visit Provider Internal Medicine
DX: Z13.89 Encounter for screening for other disorder (principal)

== ENCOUNTER 2024-09-29 09:45 | Day surgery (SDC) | payer OTHER, SELFPAY ==
--- OUTSIDE RECORDS SUMMARY | 2024-08-30 08:20 | XMS_ITS | Clinical Summary ---
Author Organization 175 [facility] Address [address] [place] [address] Phone Care Team Providers Care Hospice Educator Name Role Phone Saige Grewal MD Primary [...] by mouth at bedtime as needed. Active Active Problems Problem Noted Date Diagnosed Date Morbid obesity with BMI of 4 0.0-44.9, adult ([facility] V24, [facility] V28) 03/21/2024 Carpal tunnel syndrome, bilateral 12/17/2017 Cervical spondylosis 12/17/2017 Fibromyalgia 12/17/2017 Impaired fasting glucose 12/17/2017 Psoriatic arthritis ([facility] V24, [facility] V28) 0 12/17/2017 Hyperlipidemia 04/18/2008 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 ([facility] V24) 05/06/2007 Depression 05/06/2007 Encounters Date Type Department Care Team Description 07/24/2024 1:45 PM EDT Office Visit Orthopedic Surgery [facility] [address] [phone] Dusty Solomon DPM Follow-up exam (Primary Dx); Edgard's bunionette, right; Acquired hallux valgus of right foot; Bursitis of right foot 06/15/2024 10:45 AM EST Office Visit Orthopedic Surgery [facility] [address] [phone] Dusty Solomon, JULIO C Bursitis of right foot (Primary Dx); Edgard's bunionette, right; Acquired hallux valgus of right foot; Tendinitis of right ankle from Last 3 Months Medical History Medical History Date Comments Carpal tunnel syndrome, bilateral 12/17/2017 DX:Carpal tunnel syndrome, bilateral Cervical spondylosis 12/17/2017 DX:Cervical spondylosis 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 ([facility]24) 05/06/2007 DX:Degenerative joint d isease of sacroiliac joint ([facility]) Depression 05/06/2007 DX:Depression Fibromyalgia 12/17/2017 DX:Fibromyalgia Hyperlipidemia 04/18/2008 DX:Hyperlipidemi a Impaired fasting glucose 12/17/2017 DX:Impa ired fasting glucose Morbid obesity with BMI of 4 0.0-44.9, adult ([facility] V24, [facility] V28) 05/06/2007 DX:Morbid obesity wit h BMI of 40.0-44.9, adult ([facility]) Psoriatic arthritis ([facility] V24, [facility] V28) 12/17/2017 DX:Psoriatic arthritis ([facility]) Family History Medical History Relation Name Comments [...] - - Weight 114 kg (252 lb) 07/24/2024 1:48 PM EDT Height 157.5 cm (5' 2.01 ) 07/24/2024 1:48 PM ED T Body Mass Index 46.08 07/24/2024 1:48 PM EDT Plan of Treatment Upcoming Encounters Date Type Department Care Team (Late st Contact Info) Description 10/24/2024 2:15 PM EDT Office Visit Orthopedic Surgery - [place] [address] [phone] Dusty Solomon, DPM [address] [address] Health Maintenance Due Date Last Done Comments Breast Cancer Screening 1960 DTaP,Tdap,and Td Vaccines (1 - Tdap) 1979 Pneumococcal Vaccine: 50+ Ye ars (1 of 1 - PCV) 2010 Zoster Vaccines (1 of 2) 2010 Cervical Cancer Screening: P ap Smear 07/11/2011 07/11/2008 RSV Immunization Adult Patie nts (1 - Risk 60-74 years 1-dose series) 2020 Cholesterol Screening (Lipid Panel) 04/18/2022 05/26/2007 Colorectal Cancer Screening: Colonoscopy 04/18/2022 Depression Screening 04/18/2022 HIV Screening 04/18/2022 Hepatitis C Screening 04/18/2022 Medicare Annual Wellness Visit 04/18/2022 Social Influencers of Health Screening 04/18/2022 COVID-19 Vaccine ( - 2023-2 5 season) 2024 Influenza Vaccine (Season Ended) 2025 HIB Vaccines Aged Out No longer eligi [...] age to complete this topic Meningococcal B Vaccine Aged Out No l onger eligible based on patient's age to complete [...] Procedure Name Priority Date/Time Associated Diagnosis Comments XR FOOT 3+ VIEWS RIGHT Routine 07/24/2024 2:13 PM EDT Follow-up exam INJECTION TENDON OR LIGAMENT Routine 06/15/2024 10:45 AM EST Tendinitis of right ankle HM PAP SMEAR Routine 07/11/2008 LIPID PANEL Routine 05/26/2007 from Last 3 Months or Most Recently Relevant to Health Maintenance Results * XR Foot 3+ Views Right (07/24/2024 2:13 PM EDT) Anatomical Region Laterality Modality Lower Extremities, Foot Right Computed Radiography Narrative 07/24/2024 5:45 PM EDT Right foot 3 views Mild to moderate bunion deformity of the right great toe No new changes of mild tailor's bunion deformity right foot Lesser digit hammertoe contractures mild 2 through 5 us Dusty Solomon DPM IMG XR PROCEDURES Edited Result - Final * Injection tendon or ligament (06/15/2024 10:45 AM EST) Narrative Dusty Solomon DPM - 06/15/2024 10:45 AM EST Dusty Solomon DPM ? 06/15/2024 11:45 AM Injection tendon or ligament Indications: pain Details: 25 G needle Medications: 0.5 mL lidocaine (PF) 1 %; 20 mg triamcinolone acetonide 40 mg/mL Informed Consent: ??Site: ??Foot ligament tendon Dusty Solomon DPAdela IN CLINIC/BEDSIDE ORDERAB LES Final Result * Pap Smear (07/11/2008) Pap smear No Interpretation , Abstracted Historical Provider HEALTH MAINTENANCE Final Result * (ABNORMAL) Lipid panel (05/26/2007) LDL/HDL Ratio 5(A) 0 - 4 Triglycerides 164(A) 0 - 150 mg/dL Cholesterol 232(A) 0 - 200 mg/dL HDL 47 >=40 mg/dL LDL Cholesterol 153(A) 0 - 100 mg/dL Blood Venous blood specimen / Unknown Historical Provider LAB BLOOD ORDERABLES Janice l Result from Last 3 Months or Most Recently Relevant to [place] [address] [facility] MEDICARE Member Subscriber Plan / Payer (Ef fective 2017-Present) Name:Rupinder Meng Relation to Subscriber:Self Name:Rupinder Meng Payer ID:[id number] Group ID:[id number] Type:Not on file Address: [facility] [address] [address] Care Teams Hospice Educator Relationship Specialty Start Date End Date Saige Grewal MD [address] [facility] [place] [address] PCP - General Internal Medicine 11/24/17
--- OUTSIDE RECORDS SUMMARY | 2024-08-30 08:20 | XMS_ITS ---
Author Organization [facility] Address [address] [place] [address] Care Team Providers Care Entry Level Software Engineer Name Role Phone Uri GUTIERREZ, Saige Primary Care Provider Tien Nicole [phone] REASON FOR VISIT bowel prep Encounters Encounter Location Date Provider Diagnosis [facility] [address] [place] [phone] 08/23/2024 Tien Wagner Plan Of Treatment Next Appt Details Provider Name:Tien Wagner , 09/29/2024 02:10:00 PM, [address] , [place], [place], [phone], Progress Notes * ELANA KERRADOB:1960 (64 yo F)Acc No.[id number]:08/23/2024 Patient:?JOHANNA KERR :1960???Age:64 Y???Sex:Female Address:[address] [place] [address] [address] , [place] [address] * * Date:?
--- OUTSIDE RECORDS SUMMARY | 2024-08-30 08:21 | XMS_ITS | Patient Health Record ---
Author Organization [facility] Address [address] [place] [address] Care Team Providers Care Baker Bread Name Role Phone Uri GUTIERREZ, Saige Primary Care Provider Tien Nicole [phone] Allergies Allergen (clinical drug ingredient) Drug/Non Drug Allergy documented on EMR Reaction Allergy Type Onset Date Status clindamycin Clindacin Unknown Drug Allergy Activ e Penicillin Unknown Drug Allergy Active Reason For Referral No Information Medications Medication SIG (Take, Route, Fr equency, Duration) Notes Start Date End Date Status Zolpidem Tartrate 10 MG TAKE ONE TABLET BY MOUTH EVERY DAY AT BEDTIME NEEDED FOR INSOMNIA Oral for 30 Days Active traMADol HCl 50 MG TAKE ONE TABLET BY M OUTH THREE TIMES A DAY Oral for 90 Days Active Immunizations Vaccine Route Administration Date Status Comme nts Influenza Unknown 08/23/2024 Refused Social History Tobacco Use: Social History Observation Description Date Details (start date - stop date) Never Smoker NA - NA Tobacco Control (Standard) Question Answer Notes Tobacco use: Nonsmoker AUDIT-C (Standard) Question Answer Notes Did you have a drink contain ing alcohol in the past year? Yes How often did you have a dri nk containing alcohol in the past year? Monthly or less (1 point) How many drinks did you have on a typical day when you were drinking in the past year? 1 or 2 drinks (0 point) How often did you have six o r more drinks on one occasion in the past year? Never (0 point) Points 1 Interpretation Negative Section Notes: Nonsmoker; no sig alcohol Vital Signs Temperature 96.9 degrees Fahrenheit 08/23/2024 Blood pressure diastolic 01 mm Hg 08/23/2024 Height 62 in 08/23/2024 Blood pressure systolic 001 mm Hg 08/23/2024 Weight 246.6 lbs 08/23/2024 BMI 45.1 kg/m2 08/23/2024 Procedures Procedure Date Ordered Date Performed Result Body Sit e COLONOSCOPY 08/23/2024 N/A Encounters Encounter Location Date Provider Diagnosis [facility] [address] [place] [address] 08/23/2024 Tien Wagner Positive colorectal cancer screening using Cologuard test R19.5 [facility] [address] [place] [address] 08/23/2024 Tien Wagner Assessments Encounter Date Diagnosis (ICD Code) Assessment Notes Treatment Notes Treatment Clinical Notes Section Notes 08/23/2024 Positive colorectal cancer screening using Cologuard test (ICD-10 - R19.5) Overall, Johanna appears well and is not having any worrisome GI complaints. I did recommend a colonoscopy for further evaluation of the positive Cologuard test. We did review the rationale for this in regard to colorectal cancer prevention and/or early detection. Full consent has been taken for this, including risks of bleeding and perforation. The procedure will be done with monitored anesthesia care. Johanna was comfortable with this plan. Thank you again for allowing me to participate in Johanna's care. I shall continue to keep you advised of her progress. Plan Of Treatment Pending Test Test Name Order Date COLONOSCOPY 08/23/2024 Next Appt Details Provider Name:Tien Wagner , 09/29/2024 02:10:00 PM, [address] [place] [address] , [place], [place], [phone], Insurance Providers Payer Name Payer Address Payer Phone Subscriber Number Group Number Insured Name Patient Relationship to Insured Coverage Start Date Coverage End Date [facility] [address] [place] [address] [id number] JOHANNA KERR Self - patient is the insured [place] [address] [place] [address] [id number] JOHANNA KERR Self - patient is the insured 3 MEDICAID OF [facility] [address] [place] [address] [id number] JOHANNA KERR Self - patient is the insured Medical (General) History Medical History History ICD Code Denies [place],DM,CVA,Lung disease,renal dise ase Arthritis hyperlipidemia Fatty liver and gallstones n oted on a 2021 ultrasound, but LFTs were normal in May 2024. She has no symptoms of gallbladder disease as of the August 2024 office visit. Prediabetic Surgical History Surgery Date(Month/Year) Ectopic Appendectomy
--- OUTSIDE RECORDS SUMMARY | 2024-08-30 08:21 | XMS_ITS ---
Author Organization [facility] Address [address] [place] [address] Care Team Providers Care Field Producer Name Role Phone Uri GUTIERREZ, Saige Primary Care Provider Tien Nicole [phone] Allergies Allergen (clinical drug ingredient) Drug/Non Drug Allergy documented on EMR Reaction Allergy Type Onset Date Status clindamycin Clindacin Unknown Drug Allergy Activ e Penicillin Unknown Drug Allergy Active REASON FOR VISIT Patient presents today for other fecal abnormalitis Medications Medication SIG (Take, Route, Fr equency, [...] alcohol Vital Signs Temperature 96.9 degrees Fahrenheit 08/24/19 25 Blood pressure systolic 001 mm Hg 08/24/19 25 Blood pressure diastolic 01 mm Hg 025 Height 62 in 08/23/2024 Weight 246.6 lbs 08/23/2024 BMI 45.1 kg/m2 08/23/2024 Procedures Procedure Date Ordered Date Performed Result Body Sit e COLONOSCOPY 08/23/2024 N/A Encounters Encounter Location Date Provider Diagnosis [facility] [address] [place] [address] 08/23/2024 Tien Wagner Positive colorectal cancer screening using Cologuard test R19.5 Assessments Encounter Date Diagnosis (ICD Code) Assessment [...] COLONOSCOPY 08/23/2024 Next Appt Details Provider Name:Tien Adela Kristy , 09/29/2024 02:10:00 PM, [address] [place] [address] , [place], [place], [phone], Progress Notes * ANURUBEN ELANAADOB:1960 (64 yo F)Acc No.[id number]:08/23/2024 Progress Notes Patient:?JOHANNA KERR Provider:?Tien Wagner MD :1960???Age:64 Y???Sex:Female D ate:08/23/2024 Address:[address] [place], [place] [address] Pcp:Saige Grewal MD Subjective: * Chief Complaints: * ???1. Patient presents today for other fecal abnormalitis. * HPI: ???incontinence:? I saw Johanna in consultation today in regard to further evaluation of her positive Cologuard test. As you know, Johanna is a 64-year-old female who has never had a colonoscopy but was found to have a positive Cologuard test recently. She denies any change in bowel habits or any signs of bleeding. She specifically denies any hematochezia nor melena. She enjoys a good appetite and denies any significant heartburn or dysphagia. She denies any abdominal pain, jaundice, nor unintentional weight loss. She denies any known family history of colorectal cancer. Laboratories in May revealed a normal CBC with hemoglobin of 15.2, normal chemistries and renal function, and a normal liver profile. * Medical History:?Denies [place],D M,CVA,Lung disease,renal disease, Arthritis, Hyperlipidemia, Fatty liver and gallstones noted on a 2021 ultrasound, but LFTs were normal in May 2024. She has no symptoms of gallbladder disease as of the August 2024 office visit., Prediabetic. * Surgical History:?Appendecto my , Ectopic . * Family History:?Father: diag nosed with Heart disease, HTN (hypertension), Colon polyps.?Mother: diagnosed with Heart disease, HTN (hypertension), Colon polyps.?Paternal aunt: diagnosed with Colon polyps.? No colon cancer. * Social History:?Tobacco Use:?Tobacco Control (Standard)?Tobacco use:?Nonsmoker.?Miscellaneous:?Marital status: . 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 ???Drug/Alcohol:?AUDIT-C (Standard)?Did you have a drink containing alcohol in the past year??Yes,?How often did you have a drink containing alcohol in the past year??Monthly or less (1 point),?How many drinks did you have on a typical day when you were drinking in the past year??1 or 2 drinks (0 point),?How often did you have six or more drinks on one occasion in the past year??Never (0 point),?Points?1,?Interpretation?Negative.?Nonsmoker; no sig alcohol. * Medications:?Taking Zolpidem Tartrate 10 MG Tablet TAKE ONE TABLET BY MOUTH EVERY DAY AT BEDTIME NEEDED FOR INSOMNIA Oral , Taking traMADol HCl 50 MG Tablet TAKE ONE TABLET BY MOUTH THREE TIMES A DAY Oral * Allergies:?Penicillin, Clind acin. Objective: * Vitals:?Wt: 246.6 lbs, Ht: 6 2 in, BMI:45.1Index, BP: 001/01 mm Hg, Temp: 96.9, Ht-cm: 157.48, Wt-k.86. Assessment: * Assessment: 1.?Positive colorectal cance r screening using Cologuard test - R19.5 (Primary)??? Overall, Johanna appears well and is not [...] to keep you advised of her progress. Plan: * Treatment: * Immunizations:? Influenza (Not administered - Refused: Patient decision) * Procedure Codes:?50625 DIAGN OSTIC COLONOSCOPY * Preventive Medicine:? ??Counseling:?Care goal follow-up plan:?Above Normal BMI Follow-up?Dietary management education, guidance, and counseling,?BMI management provided?Yes.? * * The named appointment provid er may or may not be the originator of this progress note, and it is not deemed complete until electronically signed by the appointment provider. Sign off status: Pending * Provider:?Tien Wagner MD Date:? 025 Generated for Kojo ahmadi/Stephanie/Vickie on:?08/30/2024 08:20 AM EDT
[2024-09-27 14:11] VITALS: BMI 45.1
[2024-09-27 14:31] VITALS: BMI 45.1
--- NOTE | 2024-09-28 09:40 | HO.ANESPROP2 ---
Documented by User: Peri Duobn NP 09/28/24 09:40 HPI - Anesthesia Eval Consult details Narrative: 64yo F for Colonoscopy PMFSH Active Problems Active Problems: All Active Problems Sacroiliac joint dysfunction of left side (Acute) Positive colorectal cancer screening using Cologuard test (Acute) Meralgia paresthetica of left side (Acute) Medication monitoring encounter (Acute) NAFLD (nonalcoholic fatty liver disease) (Acute) Duplex ureter (Acute) Osteoarthritis of right knee (Acute) Colonoscopy refused (Acute) Fatty liver (Acute) Polyarthralgia (Acute) Cholelithiases (Acute) Vaccine refused by patient (Acute) Chronic insomnia (Acute) Varicose veins of leg with swelling (Acute) Impaired fasting glucose (Acute) Morbid obesity due to excess calories (Acute) Dyslipidemia (Acute) Fibromyalgia (Acute) HTN (hypertension) (Acute) Past Medical History Medical History Gallstones Fatty liver Hx of ectopic Vaccine refused by patient Chronic insomnia Varicose veins of leg with swelling Depression with anxiety Impaired fasting glucose Morbid obesity due to excess calories Dyslipidemia Elevated C-reactive protein (CRP) Carpal tunnel syndrome Sciatica Arthritis Ectopic Elevated liver enzymes Fibromyalgia HTN (hypertension) Family History Family History Father HTN (hypertension) Heart disease Mother HTN (hypertension) Arrhinia Brother Substance use disorder Surgical History Surgical History Hx of unilateral salpingectomy History of carpal tunnel surgery of right wrist History of appendectomy Social History Social History Household Members: Spouse Housing: House Are you a primary home health aide caregiver to a significant other at home: No Do you presently have visiting nurse or other home services: No Alcohol intake: current Alcohol intake frequency: holidays/special occasions only Patient Tobacco Use Status: Never used Tobacco Tobacco use type: Cigarette e-Cigarette/Vaping Use: Never Used Second Hand Smoke Exposure: No Use of substances other than those prescribed or required for medical reasons: No Have you been hit, kicked, punched, or otherwise hurt by someone within the past year? 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 Sexual orientation: Straight/Heterosexual Gender identity: Female Cognitive needs: No Hearing needs: No Vision needs: Yes Meds Allergies Allergy/AdvReac Type Severity Reaction Status Date / Time Clindamycin HCl AdvReac Severe diarrhea Verified 09/29/24 10:34 penicillin V AdvReac Severe yeast Verified 09/29/24 10:34 infections Home Medications ?Medication ?Instructions ?Recorded ?Confirmed ?Last Taken ?Type milk thistle 150 mg capsule 300 mg PO DAILY 04/23/20 09/29/24 09/24/24 History naproxen sodium 220 mg capsule 220 mg PO BID PRN Pain 03/03/22 09/29/24 09/22/24 History cholecalciferol (vitamin D3) 25 25 mcg PO DAILY 10/16/22 09/29/24 Unknown History mcg (1,000 unit) capsule vitamin K2 100 mcg capsule 200 mcg PO DAILY 11/25/23 09/29/24 Unknown History capsicum (cayenne) 1 tab PO DAILY 09/27/24 09/29/24 09/22/24 History turmeric 1 tab PO DAILY 09/27/24 09/29/24 09/15/24 History Exam Height,Weight and Vital Signs: Height 5 ft 2 in Weight 111.856 kg Assessment and Plan Assessment Anesthesia Assessment: Chart Reviewed Documented by User: Pamela Oviedo MD 09/29/24 11:51 PMFSH Past Medical History Medical History Gallstones Fatty liver Hx of ectopic Vaccine refused by patient Chronic insomnia Varicose veins of leg with swelling Depression with anxiety Impaired fasting glucose Morbid obesity due to excess calories Dyslipidemia Elevated C-reactive protein (CRP) Carpal tunnel syndrome Sciatica Arthritis Ectopic Elevated liver enzymes Fibromyalgia HTN (hypertension) Family History Family History Father HTN (hypertension) Heart disease Mother HTN (hypertension) Sheyla Brother Substance use disorder Surgical History Surgical History Hx of unilateral salpingectomy History of carpal tunnel surgery of right wrist History of appendectomy History of Problems with Anesthesia: No Social History Social History Household Members: Spouse Housing: House Are you a primary home health aide caregiver to a significant other at home: No Do you presently have visiting nurse or other home services: No Alcohol intake: current Alcohol intake frequency: holidays/special occasions only Patient Tobacco Use Status: Never used Tobacco Tobacco use type: Cigarette e-Cigarette/Vaping Use: Never Used Second Hand Smoke Exposure: No Use of substances other than those prescribed or required for medical reasons: No Have you been hit, kicked, punched, or otherwise hurt by someone within the past year? 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 Sexual orientation: Straight/Heterosexual Gender identity: Female Cognitive needs: No Hearing needs: No Vision needs: Yes Meds Allergies Allergy/AdvReac Type Severity Reaction Status Date / Time Clindamycin HCl AdvReac Severe diarrhea Verified 09/29/24 10:34 penicillin V AdvReac Severe yeast Verified 09/29/24 10:34 infections Home Medications ?Medication ?Instructions ?Recorded ?Confirmed ?Last Taken ?Type milk thistle 150 mg capsule 300 mg PO DAILY 04/23/20 09/29/24 09/24/24 History naproxen sodium 220 mg capsule 220 mg PO BID PRN Pain 03/03/22 09/29/24 09/22/24 History cholecalciferol (vitamin D3) 25 25 mcg PO DAILY 10/16/22 09/29/24 Unknown History mcg (1,000 unit) capsule vitamin K2 100 mcg capsule 200 mcg PO DAILY 11/25/23 09/29/24 Unknown History capsicum (cayenne) 1 tab PO DAILY 09/27/24 09/29/24 09/22/24 History turmeric 1 tab PO DAILY 09/27/24 09/29/24 09/15/24 History Exam Airway Mallampati Class: III TM Dist: >3cm Neck ROM: Full Partial: Upper Loose/Missing/Broken Teeth: No Heart: RRR Lungs: CTA Assessment and Plan Assessment Anesthesia Assessment: Anesthesia Plan Discussed Final Anesthetic Review History of Problems with Anesthesia: No NPO: Yes ASA Class: III Final Preanesthetic Review: Meds/Allgs Chart Reviewed, Consent Obtained/Reviewed and Anes Risks/Benef Reviewed Patient Risk: Intermediate Procedure Risk: Low Anesthetic Plan Anesthetic Plan: MAC: Disposition: Standard PACU
[2024-09-29 10:32] VITALS: BP 141/80; PULSE 81; RESP 16; TEMP 36.2; O2SAT 96; BMI 44.2
[2024-09-29] MEDS: Lactated Ringers 1,000 ML 100 ML IVCONT (10:41)
[2024-09-29 12:57] VITALS: BP 103/50; PULSE 70; RESP 18; TEMP 37; O2SAT 96
--- NOTE | 2024-09-29 13:00 | PM.OP ---
Brief Operative Note Date of Service: 09/29/24 Pre-op diagnosis: Screening Post-op diagnosis: other (Polyps) Procedure: Colonoscopy to the cecum and TI with hot snare polypectomies(AC and Rectum), cold snare polypectomy(TC), and biopsiy/removal of rectal polyps Surgeon: Tien Wagner MD Anesthesia: MAC Was an Sterile Instrument Technician used for this Procedure?: No Estimated blood loss (mL): 2.0 Pathology: other (A. Proximal ascending colon polyp B. Transverse colon polyp C. Rectal polyps) Condition: stable Disposition: PACU
[2024-09-29 13:12] VITALS: BP 117/65; PULSE 61; RESP 16; O2SAT 97
[2024-09-29 13:26] VITALS: BP 130/47; PULSE 68; RESP 16; TEMP 36.8; O2SAT 98
--- NOTE | 2024-09-29 13:54 | OP_ITS ---
DATE OF SERVICE: 09/29/2024 SURGEON: Tien Wagner MD INDICATIONS: The patient presents for evaluation of a positive Cologuard test. Full consent was obtained from her for this, including risks of bleeding and perforation. PREOPERATIVE DIAGNOSIS: Positive Cologuard test. POSTOPERATIVE DIAGNOSIS: PROCEDURE PERFORMED: Colonoscopy to cecum and terminal ileum with hot snare polypectomy x 2, cold snare polypectomy x 1, and biopsy and removal of polyps x2. ESTIMATED BLOOD LOSS: COMPLICATIONS: ANESTHESIA: Medications used; monitored anesthesia care. ASSISTANTS: SPECIMENS: POSTOPERATIVE DIAGNOSES: Positive Cologuard test, colon polyps, diverticulosis, and internal hemorrhoids. DESCRIPTION OF PROCEDURE: The patient was placed in the left lateral decubitus position. The digital rectal exam revealed no abnormalities. The Olympus video pediatric colonoscope was entered into the rectum, advanced easily to the cecum. Once in the cecum, I did identify normal-appearing cecal pouch with appendiceal orifice a normal-appearing ileocecal valve. The terminal ileum was cannulated and appeared normal. Scope was withdrawn back in the colon. The entire cecum and ileocecal valve appeared normal. The scope was slowly withdrawn assessing all mucosal surfaces carefully. Preparation was excellent. In the proximal ascending colon, was a flat, but raised approximately 12-15 mm polyp, which appeared to be at least partially adenomatous and possibly with some serrated features. This was removed in piecemeal fashion by hot snare polypectomy and recovered by suction. Post-polypectomy there did not appear to be any residual polyp tissue nor bleeding. In the transverse colon was an approximately 4 mm polyp which was removed by cold snare polypectomy and recovered by suction. The polypectomy site appeared clean, without any sign of residual polyp nor significant bleeding. In the rectum, was an approximately 10 mm polyp, which was removed by hot snare polypectomy and recovered by suction. The polypectomy site appeared clean, without any sign of residual polyp nor bleeding. Also in the rectum, were 2 less than 5 mm probable hyperplastic polyps which were removed by cold biopsy forceps. I did not visualize any other polyps, colitis, nor angiodysplasia. There was a mild amount of sigmoid diverticulosis. In the rectum the scope was retroflexed visualizing internal hemorrhoids, but no other pathology. The rectal mucosa appeared normal. The scope was straightened and withdrawn from the patient. She tolerated the procedure well and was returned to recovery area in stable condition. IMPRESSION: 1. Colon polyps. 2. Diverticulosis. 3. Internal hemorrhoids. PLAN: The results of the pathology will be checked. If the ascending colon polyp is adenomatous and/or serrated, I would recommend a repeat colonoscopy within 2-3 years for further surveillance. She was advised not to use any aspirin or NSAIDs for 1 week. She will otherwise see me on a p.r.n. basis. MD BAILEY Villalobos/DELMY / [id number] MTDD
== END 2024-09-29 13:35 | disposition home or self-care (01) ==
PROVIDERS: PCP Internal Medicine; Visit Provider Internal Medicine
PROC: 0DJD8ZZ Inspection of Lower Intestinal Tract, Via Natural or Artificial Opening Endoscopic (ICD-10-PCS; CPT 45378; principal; 2024-09-29 11:00)
DX: R19.5 Other fecal abnormalities (principal); D12.2 Benign neoplasm of ascending colon; D12.8 Benign neoplasm of rectum; K63.5 Polyp of colon; K57.30 Diverticulosis of large intestine without perforation or abscess without bleeding; K64.8 Other hemorrhoids; K76.0 Fatty (change of) liver, not elsewhere classified; E78.5 Hyperlipidemia, unspecified; R73.03 Prediabetes; Z79.899 Other long term (current) drug therapy; Z88.0 Allergy status to penicillin; Z90.49 Acquired absence of other specified parts of digestive tract
CPT/HCPCS: 45385; 45380; 88305; J2003; J2704

== ENCOUNTER 2024-11-11 11:53 | Outpatient (REF) | payer OTHER, SELFPAY ==
[2024-11-11 14:14] LABS: Estimated Average Glucose 131 mg/dL; Hemoglobin A1c % 6.2 % (<6.0)
[2024-11-11 18:05] LABS: Anion Gap 15 (12-20); Blood Urea Nitrogen 11 mg/dL (9-16); Calcium 9.3 mg/dL (8.4-10.2); Carbon Dioxide 22 mmol/L (22-29); Chloride 108 mmol/L (96-108); Cholesterol 263 mg/dL (<200); Estimated Glomerular Filt Rate > 60; Glucose Fasting 128 mg/dL (60-99); HDL Cholesterol 46 mg/dL (>40); LDL Cholesterol Calculated 192 mg/dL (<100); Potassium 4.3 mmol/L (3.3-5.1); Sodium 141 mmol/L (135-145); Triglycerides 126 mg/dL (<150)
== END 2024-11-11 11:54 | disposition home or self-care (01) ==
LOC: HO.HMGCLDS 11:53
PROVIDERS: PCP Internal Medicine; Visit Provider Internal Medicine
DX: E78.5 Hyperlipidemia, unspecified (principal); E66.01 Morbid (severe) obesity due to excess calories; R73.01 Impaired fasting glucose
CPT/HCPCS: 36415; 80048; 80061; 83036

== ENCOUNTER 2024-11-15 11:22 | Outpatient (AMB) | payer OTHER, SELFPAY ==
--- OUTSIDE RECORDS SUMMARY | 2024-09-29 07:00 | XMS_ITS ---
Author Organization [facility] Address [address] [place] [address] Care Team Providers Care Business Team Leader Name Role Phone Uri GUTIERREZ, Saige Primary Care Provider Tien Nicole [phone] REASON FOR VISIT positive colon cancer screening using cologuard Encounters Encounter Location Date Provider Diagnosis [facility] [address] [place], [place] [phone] 09/29/2024 Tien Wagner Benign neoplasm of rectum [...] Notes * ROXANA KERRB:1960 (64 yo F)Acc No.[id number]:09/29/2024 COLON WITH MAC Patient: ELANA ZELAYAA Provider: April Wagner MD :1960 A ge:64 Y S ex:Female Date:09/29/2024 Address:[address] [place], [place] [phone] Pcp:Saige Grewal MD Subjective: * Chief Complaints: * 1 . Positive colon cancer screening using cologuard. * Medical History: Objective: * Vitals: Assessment: * Assessment: 1. B enign neoplasm of rectum - D12.8 (Primary) 2 . A denoma of ascending colon - D12.2 3 . C olon polyps - K63.5 Plan: * Treatment: * Procedure Codes: 4 5385 LESION REMOVAL COLONOSCOPY, [address]2598 COLONOSCOPY AND BIOPSY, Modifiers: 59 * * The named appointment provid er may or may not be the originator of this progress note, and it is not deemed complete until electronically signed by the appointment provider. Sign off status: Pending * Provider: April Wagner MD Date: 0 09/29/2024 Generated for Kojo ahmadi/Stephanie/Jazielitting on: 0 11/15/2024 12:09 PM EDT
[2024-11-15 12:01] VITALS: BP 122/70; PULSE 80; RESP 16; TEMP 36.9; O2SAT 96; BMI 45.4
--- NOTE | 2024-11-15 12:01 | A.OFFPC_ITS ---
Vital Signs 11/15/24 12:01 Height 5 ft 2 in Weight 248 lb BMI 45.4 BP 122/70 Blood Pressure Location Lt brachial Position Sitting Respiration 16 Pulse 80 Pulse Source Pulse Oximeter Temp 98.4 F Temp Source Oral Pulse Oximetry (%) 96 Oxygen Delivery Method Room Air Intake Visit Reasons: 3months f/up Intake Note: Pt is here today for her 3mo. Allergies Clindamycin HCl Adverse Reaction (Severe, Verified 11/15/24 12:16) diarrhea penicillin V Adverse Reaction (Severe, Verified 11/15/24 12:16) yeast infections Medication List - Last Reconciled 11/15/24 by Saige Grewal MD [capsicum (cayenne) 1 tab PO DAILY] cholecalciferol (vitamin D3) 25 mcg PO DAILY ibuprofen 600 mg PO Q8H PRN milk thistle 300 mg PO DAILY naproxen sodium 220 mg PO BID PRN tramadol 50 mg PO TID 90 days [turmeric 1 tab PO DAILY] vitamin K2 200 mcg PO DAILY zolpidem 10 mg PO BEDTIME PRN Tobacco use date assessed: 11/15/24 Fall risk assessment: No Falls in past year Last assessed Fall Risk: 11/15/24 Dental Screening Dental Screen Date: 11/15/24 Did you have a dental visit in the last 12 months?: Yes Did you have a dental problem in the last 6 months where you did not have access to dental care?: No Was dental information given to patient?: Patient has dentist HPI 3months f/up HPI Details 64 year-old lady with morbid obesity, dy slipidemia, chronic insomnia, prediabetes, here today for follow-up. Patient states that she has not been following any recommended diet, has been stress eating, usually at night and states that she is active but does not follow any regular exercise regimen. Patient has repeatedly refused referral to dietitian and starting on any statin in the past. HPI Comments History of Present Illness Details Admits to eating ice cream to help deal with stress at home [facility] Medical History Gallstones Fatty liver Hx of ectopic Vaccine refused by patient Chronic insomnia Varicose veins of leg with swelling Depression with anxiety Impaired fasting glucose Morbid obesity due to excess calories Dyslipidemia Elevated C-reactive protein (CRP) Carpal tunnel syndrome Sciatica Arthritis Ectopic Elevated liver enzymes Fibromyalgia HTN (hypertension) Surgical History Hx of unilateral salpingectomy History of carpal tunnel surgery of right wrist History of appendectomy Family History Father HTN (hypertension) Heart disease Mother HTN (hypertension) Arrhinia Brother Substance use disorder Social History Household Members: Spouse Housing: House Are you a primary director of health care marketing to a significant other at home: No Do you presently have visiting nurse or other home services: No Alcohol intake: current Alcohol intake frequency: holidays/special occasions only Patient Tobacco Use Status: Never used Tobacco Tobacco use type: Cigarette e-Cigarette/Vaping Use: Never Used Second Hand Smoke Exposure: No service: No Current occupational status: disabled 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 Sexual orientation: Straight/Heterosexual Gender identity: Female Cognitive needs: No Hearing needs: No Vision needs: Yes Questionnaire Thrive Questionnaire Date Thrive assessed: 05/26/24 I am a: Patient What is your living situation today?: I have a place to live, but I am worried about losing it in the future Within the past 12 months, did the food you bought not last and you didn't have the money to get more?: Never true Within the past 12 months, did you worry whether your food would run out before you got money to buy more?: Often true Do you have trouble paying for medicines?: No Do you have trouble getting transportation to medical appointments?: No Do you have trouble paying your heating and electricity bill?: No Do you have trouble taking care of your child, family member or friend?: No Do you have trouble with day-to-day activities such as bathing, preparing meals, shopping, managing finances, etc.?: Yes Are you currently unemployed and looking for a job?: No Are you interested in more education?: No Please select the resources that you would like help with: None Currently or been in a relationship where the following occur: No concerns reported THRIVE Score: 2 SHANE-7 AMB Questionnaire SHANE-7 Date SHANE - 7 assessed: 06/01/24 Source: Developed by Drs. Tien Rhodes, Roseline Deluna, Leonel Huang and colleagues, with an educational adri from [employer]. Review of Systems Const All systems reviewed & are unremarkable except as noted in HPI and below Physical exam (Primary Care) Vital Signs: Last Vital Signs Temp 98.4 F 11/15/24 12:01 Pulse 80 11/15/24 12:01 Resp 16 11/15/24 12:01 BP 122/70 11/15/24 12:01 Pulse Ox 96 11/15/24 12:01 Oxygen Delivery Method Room Air 11/15/24 12:01 BMI result Body Mass Index 45.4 BMI Assessment/Plan discussion: High BMI High, discussed plan: lifestyle, weight reduction, dietary and physical activity Tobacco/Smoking Status: Tobacco use Status Tobacco use date assessed 11/15/24 11/15/24 12:03 Patient Tobacco Use Status Never used Tobacco 11/15/24 12:03 Tobacco use type Cigarette 11/15/24 12:03 e-Cigarette/Vaping Use Never Used 11/15/24 12:03 Thrive Assessment: Date of Thrive Assessment Date Thrive assessed 05/26/24 11/15/24 12:03 Currently or been in a relationship where the following occur: No concerns reported Const Other: Alert oriented x3, morbidly obese, no acute distress noted General: no acute distress and alert Nutritional Appearance: obese morbidly obese Orientation/consciousness: patient oriented x3 Eyes General: appearance normal, both eyes and all related structures Neck Other: Supple no lymphadenopathy, thyroid nonpalpable Resp Auscultation: clear to auscultation bilaterally Cardio Other: S1-S2 present regular rate and rhythm GI Palpation (GI): Soft to palpation, nontender and no guarding Auscultation: normal bowel sounds Neuro General: patient oriented x3, gait normal, tone normal, moves all extremities, Normal light touch and pain sensation, no focal motor deficits and CN's II-XI intact bilaterally Extrem General: Yes full ROM, Yes no joint enlargement, Yes no clubbing, cyanosis or edema, Yes no calf tenderness and Yes normal gait Results Reviewed Results Reviewed: Name: Rupinder Meng Age/Sex: 64/F : 1960 Unit#: [id number] Attend Dr: Saige Grewal MD Re11/11/24 Status: DEP REF Location: [facility] Disch: SPEC : [id number] JESSICA: 11/11/24 STATUS: COMP REQ : [id number] RECD: 11/11/24-[address]: Saige Grewal MD COMP: 11/11/24-1804 ENTERED: 11/11/[address]: ORDERED: Met Prof Fast, Lipid Panel Test Result Flag Reference Sodium 141 135-145 mmol/L Potassium 4.3 3.3-5.1 mmol/L CL 108 96-108 mmol/L CO2 22 22-29 mmol/L Gap 15 12-20 BUN 11 9-16 mg/dL Creat 0.71 0.5-1.4 mg/dL eGFR > 60 Chronic Kidney Disease: Estimated GFR < 60 mL/min/1.73m2 Severe Kidney Disease: Estimated GFR < 15 mL/min/1.73m2 FBS 128 H 60-99 mg/dL A fasting glucose of 126 mg/dl or greater on more than one occasion is considered diagnostic of diabetes. CA 9.3 8.4-10.2 mg/dL Triglyceride 126 <150 mg/dL Desirable Triglyceride: less than 150 mg/dL Borderline High Triglyceride 150-199 mg/dL High Triglyceride: 200-499 mg/dL Very High Triglyceride: greater than or equal to 5OO mg/dL Cholesterol 263 H <200 mg/dL Desirable Cholesterol: less than 200 mg/dL Borderline High Cholesterol: 200-239 mg/dL High Cholesterol: greater than 239 mg/dL LDL Calculated 192 H <100 mg/dL Desirable LDL: less than 100 mg/dL Near Optimal/Above Optimal LDL: 110-129 mg/dL Borderline High LDL: 130-159 mg/dL High LDL: 160-189 mg/dL Very High LDL: greater than or equal to 190 mg/dL HDL 46 >40 mg/dL Desirable HDL: greater than 40 mg/dL Note: This HDL assay may give artificially low results in patients with liver disease. Coding Level of Care Code Est Pt Level 4 (42287) Diagnoses Impaired fasting glucose R73.01 Primary hypertension I10 Hypertension type: primary hypertension Dyslipidemia E78.5 Morbid obesity due to excess calories E66.01 Assessment & Plan Assessment & Plan (1) Impaired fasting glucose: Code(s): R73.01 - Impaired fasting glucose Category: Medical Plan: Your previous fasting blood sugars were elevated above 100 mg/dL. Impaired glucose metabolism increases the risk for developing diabetes mellitus type 2, as well as heart attack and stroke later on. Lifestyle changes that promotes weight loss, healthy eating habits, and regular exercise are important, and can prevent the progression to diabetes (2) HTN (hypertension): Code(s): I10 - Essential (primary) hypertension Category: Medical Qualifiers: Hypertension type: primary hypertension Qualified Code(s): I10 - E ssential (primary) hypertension Plan: Blood pressure at goal of less than 130/80. Continue with current medication. Reinforced importance of following a low sodium diet, getting regular exercise, and lowering stress levels. (3) Dyslipidemia: Code(s): E78.5 - Hyperlipidemia, unspecified Category: Medical Plan: Discuss results of recent fasting lipids with still showed elevated LDL cholest jai. Patient still adamantly refusing to start taking his statin and interesting on trying to lower it through diet and exercise (4) Morbid obesity due to excess calories: Code(s): E66.01 - Morbid (severe) obesity due to excess calories Category: Medical Plan: Your BMI is above the ideal range. Discussed need to increase activity and weight reduction. Recommended focusing on improving health instead of dieting. Mediterranean diet is a healthy diet that helps, limit food high in fat, sugar, and calories. Eat slowly, pay attention to portion sizes, plan your meals ahead of time, start regular physical activity, at least 150 minutes of moderate intensity exercise, or 90 minutes per week of vigorous exercise. Keeping a food diary, tracking what you eat and your physical activity can help assess what improvements you can make. There are many health problems associated with being overweight/obese, so it is important to improve your diet and exercise. Orders: Orders Basic Metabolic Panel Fasting 05/19/25 E66.01 - Morbid (severe) obesity due to excess calories, E78.5 - Hyperlipidemia, unspecified, I10 - Essential (primary) hypertension, R73.01 - Impaired fasting glucose Vitamin D 25-OH Total 05/19/25 E66.01 - Morbid (severe) obesity due to excess calories, E78.5 - Hyperlipidemia, unspecified, I10 - Essential (primary) hypertension, R73.01 - Impaired fasting glucose Alanine Aminotransferase 05/19/25 E66.01 - Morbid (severe) obesity due to excess calories, E78.5 - Hyperlipidemia, unspecified, I10 - Essential (primary) hypertension, R73.01 - Impaired fasting glucose Aspartate Amino Transferase 05/19/25 E66.01 - Morbid (severe) obesity due to excess calories, E78.5 - Hyperlipidemia, unspecified, I10 - Essential (primary) hypertension, R73.01 - Impaired fasting glucose Lipid Panel 05/19/25 E66.01 - Morbid (severe) obesity due to excess calories, E78.5 - Hyperlipidemia, unspecified, I10 - Essential (primary) hypertension, R73.01 - Impaired fasting glucose Hemoglobin A1c 05/19/25 E66.01 - Morbid (severe) obesity due to excess calories, E78.5 - Hyperlipidemia, unspecified, I10 - Essential (primary) hypertension, R73.01 - Impaired fasting glucose
--- OUTSIDE RECORDS SUMMARY | 2024-11-15 12:10 | XMS_ITS | Clinical Summary ---
Author Organization [address] [facility] Address [address] [place] [address] Phone Care Team Providers Care Farm Adviser Name Role Phone Saige Grewal MD Primary Care Provider [phone] Allergies Active Allergy Reactions Criticality Noted Date [...] obesity with BMI of 4 0.0-44.9, adult ([facility] V24, [facility] V28) 03/21/2024 Carpal tunnel syndrome, bilateral 12/17/2017 Cervical spondylosis 12/17/2017 Fibromyalgia 12/17/2017 Impaired fasting glucose 12/17/2017 Psoriatic arthritis ([facility] V24, [facility] V28) 0 12/17/2017 Hyperlipidemia 04/18/2008 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 ([facility] V24) 05/06/2007 Depression 05/06/2007 Encounters Date Type Department Care Team Description 10/24/2024 2:15 PM EDT Office Visit Orthopedic Surgery [facility] [address] [place] [phone] Dusty Solomon, JULIO C See ott, right (Primary Dx); Acquired hallux valgus of right foot; Bursitis of right foot; Tendinitis of right ankle from Last 3 Months Medical History Medical History Date Comments Carpal tunnel syndrome, bilateral 12/17/2017 DX:Carpal tunnel syndrome, bilateral Cervical spondylosis 12/17/2017 DX:Cervical spondylosis 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 ([facility] V24) 05/06/2007 DX:Degenerative joint d isease of sacroiliac joint ([facility]) Depression 05/06/2007 DX:Depression Fibromyalgia 12/17/2017 DX:Fibromyalgia Hyperlipidemia 04/18/2008 DX:Hyperlipidemi a Impaired fasting glucose 12/17/2017 DX:Impa ired fasting glucose Morbid obesity with BMI of 4 0.0-44.9, adult ([facility] V24, [facility] V28) 05/06/2007 DX:Morbid obesity wit h BMI of 40.0-44.9, adult ([facility]) Psoriatic arthritis ([facility] V24, [facility] V28) 12/17/2017 DX:Psoriatic arthritis ([facility]) Family History Medical History Relation Name Comments [...] Care Team (Late st Contact Info) Description 04/25/2025 3:30 PM EST Office Visit Orthopedic Surgery - [place] [address] [facility] [address] [place] [phone] Dusty Solomon, DPM 175 [facility] [address] [place] [address] Health Maintenance Due Date Last Done Comments [...] Vaccine (2023-2 5 season) 2024 Influenza Vaccine (Season Ended) [...] Procedure Name Priority Date/Time Associated Diagnosis Comments PAP SMEAR Routine 07/11/2008 LIPID PANEL Routine 05/26/2007 from Last 3 Months or Most Recently Relevant to Health Maintenance Results * Hm Pap Smear (07/11/2008) HM Pap smear No Interpretation , Abstracted us Historical Provider MD HEALTH MAINTENANCE Final Result [...] Most Recently Relevant to Health Maintenance Insurance [facility] MEDICARE Member Subscriber Plan / Payer (Ef fective 2017-Present) Name:JOHANNA MENG Relation to Subscriber:Self Name:Johanna Meng Payer ID:[id number] Group ID:[id number] Type:Not on file Address: [place] [address] [address] [phone] Care Teams Farm Adviser Relationship Specialty Start Date End Date Saige Grewal MD [address] [place], [place] [id number] PCP - General Internal Medicine 11/24/17
== END 2024-11-15 12:35 | disposition home or self-care (01) ==
LOC: HO.HMCC 11:23
PROVIDERS: PCP Internal Medicine; Visit Provider Internal Medicine
DX: R73.01 Impaired fasting glucose (principal); E66.01 Morbid (severe) obesity due to excess calories; Z68.42 Body mass index [BMI] 45.0-49.9, adult; I10 Essential (primary) hypertension; E78.5 Hyperlipidemia, unspecified

== ENCOUNTER → 2024-11-15 11:22 | Outpatient (BNVA) | payer OTHER, SELFPAY | PROVIDERS: PCP Internal Medicine; Visit Provider Internal Medicine | DX: E66.01 Morbid (severe) obesity due to excess calories (principal); E78.5 Hyperlipidemia, unspecified; G47.00 Insomnia, unspecified; R73.01 Impaired fasting glucose; I10 Essential (primary) hypertension; Z68.42 Body mass index [BMI] 45.0-49.9, adult | CPT/HCPCS: 99212 ==

== ENCOUNTER 2025-01-04 13:50 | Outpatient (AMB) | payer OTHER, SELFPAY ==
--- OUTSIDE RECORDS SUMMARY | 2024-09-29 07:00 | XMS_ITS ---
Author Organization [facility] Address [address] [place] [address] Care Team Providers Care Fudger Name Role Phone Uri GUTIERREZ, Saige Primary Care Provider Tien Nicole [phone] REASON FOR VISIT positive colon cancer screening using cologuard Encounters Encounter Location Date Provider Diagnosis [facility] [address] [place], [place] [phone] 09/29/2024 Tien Wagner Benign neoplasm of rectum D12.8 ; Adenoma of ascending colon D12.2 and Colon polyps K63.5 Assessments Encounter Date Diagnosis (ICD Code) Assessment Notes Treatment Notes Treatment Clinical Notes Section Notes 09/29/2024 Benign neoplasm of rectum (ICD-10 - D12.8) 09/29/2024 Adenoma of ascending colon (ICD-10 - D12.2) 09/29/2024 Colon polyps (ICD-10 - K63.5) Plan Of Treatment No Information Progress Notes * ROXANA KERRB:1960 (64 yo F)Acc No.[id number]:09/29/2024 COLON WITH MAC Patient: ELANA ZELAYAA Provider: April Wagner MD :1960 A ge:64 Y S ex:Female Date:09/29/2024 Address:[address] [place], [place] [phone] Pcp:Saige Grewal MD Subjective: * Chief Complaints: * 1 . Positive colon cancer screening using cologuard. * Medical History: Objective: * Vitals: Assessment: * Assessment: 1. B enign neoplasm of rectum - D12.8 (Primary) 2 . A denoma of ascending colon - D12.2 3 . C olon polyps - K63.5 Plan: * Treatment: * Procedure Codes: 4 5385 LESION REMOVAL COLONOSCOPY, [address]46 COLONOSCOPY AND BIOPSY, Modifiers: 59 * * The named appointment provid er may or may not be the originator of this progress note, and it is not deemed complete until electronically signed by the appointment provider. Sign off status: Pending * Provider: April Wagner MD Date: 0 09/29/2024 Generated for Kojo ahmadi/Stephanie/Jazielitting on: 0 01/04/2025 01:59 PM EDT
--- OUTSIDE RECORDS SUMMARY | 2025-01-04 13:59 | XMS_ITS | Clinical Summary ---
Author Organization 175 [facility] Address [address] [place] [address] Phone Care Team Providers Care Cylinder Valve Repairer Name Role Phone Saige Grewal MD Primary [...] obesity with BMI of 4 0.0-44.9, adult ([facility] V24, [facility] V28) 03/21/2024 Carpal tunnel syndrome, bilateral 12/17/2017 Cervical spondylosis 12/17/2017 Fibromyalgia 12/17/2017 Impaired fasting glucose 12/17/2017 Psoriatic arthritis ([facility] V24, [facility] V28) 0 12/17/2017 Hyperlipidemia 04/18/2008 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 ([facility] V24) 05/06/2007 Depression 05/06/2007 Encounters Date Type Department Care Team Description 10/24/2024 2:15 PM EDT Office Visit Orthopedic Surgery [facility] [address] [place] [phone] Dusty Soloomn, JULIO C See ott, right (Primary Dx); Acquired hallux valgus of right foot; Bursitis of right foot; Tendinitis of right ankle from Last 3 Months Medical History Medical History Date Comments Carpal tunnel syndrome, bilateral 12/17/2017 DX:Carpal tunnel syndrome, bilateral Cervical spondylosis 12/17/2017 DX:Cervical spondylosis 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 ([facility] V24) 05/06/2007 DX:Degenerative joint d isease of sacroiliac joint ([facility]) Depression 05/06/2007 DX:Depression Fibromyalgia 12/17/2017 DX:Fibromyalgia Hyperlipidemia 04/18/2008 DX:Hyperlipidemi a Impaired fasting glucose 12/17/2017 DX:Impa ired fasting glucose Morbid obesity with BMI of 4 0.0-44.9, adult ([facility] V24, [facility] V28) 05/06/2007 DX:Morbid obesity wit h BMI of 40.0-44.9, adult ([facility]) Psoriatic arthritis ([facility] V24, [facility] V28) 12/17/2017 DX:Psoriatic arthritis ([facility]) Family History Medical History Relation Name Comments [...] PM EST Office Visit Orthopedic Surgery - [place] 250 [address] [facility] [address] [place] [phone] Dusty Solomon, DPM 175 [facility] [address] [place] [address] Health Maintenance Due Date Last Done Comments [...] 04/18/2022 05/26/2007 Colorectal Cancer Screening: Colonoscopy 04/18/2022 HIV Screening 04/18/2022 Hepatitis C Screening 04/18/2022 Medicare Annual Wellness Visit 04/18/2022 Social Influencers of Health Screening 04/18/2022 COVID-19 Vaccine ( - 2023-2 5 season) 2024 Depression Screening 05/17/2024 Influenza Vaccine (#1) 2025 HIB Vaccines Aged Out No longer [...] HM Pap smear No Interpretation , Abstracted Historical [...] Most Recently Relevant to Health Maintenance Insurance [employer] MEDICARE Member Subscriber Plan / Payer (Ef fective 2017-Present) Name:JOHANNA MENG Relation to Subscriber:Self Name:Johanna Meng Payer ID:[id number] Group ID:[id number] Type:Not on file Address: [place] [address] [address] [phone] Care Teams Cylinder Valve Repairer Relationship Specialty Start Date End Date Saige Grewal MD [address] [place] [address] PCP - General Internal Medicine 11/24/17
[2025-01-04 14:06] VITALS: BP 130/80; PULSE 92; RESP 16; TEMP 36.7; O2SAT 94; BMI 45.5
--- NOTE | 2025-01-04 14:06 | A.OFFPC_ITS ---
Vital Signs 01/04/25 14:06 Height 5 ft 2 in Weight 249 lb BMI 45.5 BP 130/80 Blood Pressure Location Lt brachial Position Sitting Respiration 16 Pulse 92 Pulse Source Pulse Oximeter Temp 98.1 F Temp Source Oral Pulse Oximetry (%) 94 Oxygen Delivery Method Room Air Intake Visit Reasons: PE Intake Note: Pt is here today for her PE: Last mammogram 11/19/22, papsmear 11/16/22, cologuard 12/29/23 Allergies Clindamycin HCl Adverse Reaction (Severe, Verified 01/04/25 14:25) diarrhea penicillin V Adverse Reaction (Severe, Verified 01/04/25 14:25) yeast infections Medication List - Last Reconciled 01/04/25 by Saige Grewal MD [capsicum (cayenne) 1 tab PO DAILY] cholecalciferol (vitamin D3) 25 mcg PO DAILY ibuprofen 600 mg PO Q8H PRN naproxen sodium 220 mg PO BID PRN tramadol 50 mg PO TID 90 days vitamin K2 200 mcg PO DAILY zolpidem 10 mg PO BEDTIME PRN Tobacco use date assessed: 01/04/25 Fall risk assessment: No Falls in past year Last assessed Fall Risk: 01/04/25 Dental Screening Dental Screen Date: 01/04/25 Did you have a dental visit in the last 12 months?: Yes Did you have a dental problem in the last 6 months where you did not have access to dental care?: Yes Was dental information given to patient?: Patient has dentist HPI PE HPI Details 64 year-old lady with morbid obesity, dyslipidemia, chronic insomnia, prediabetes, here today for her physical exam. She had a positive Cologuard test in 2023, and had her screening colonoscopy done by Dr. Wagner with removal of a serrated polyp, and a hyperplastic polyp, needs a repeat colonoscopy in 2 years. Had her screening mammogram done in 2022 with benign findings, and had a normal bone density in 2022 as well. Patient however does not want to have a repeat mammogram done this year. Last cervical cancer screening was done 11/16/2022 with normal findings done at [facility]. Has prediabetes with last hemoglobin A1c October 2024 at 6.2% . States that she has been adhering to healthy eating habits, but does not engage in any regular exercise. She has dyslipidemia with LDL cholesterol at 192 mg/dL.on October 2024, discussed with patient importance of starting medication to help lower this down and following a low-cholesterol diet and getting regular exercise but patient states that she has already been doing that and does not want to be started on any statin medication. She is aware of the consequences of having poorly controlled lipid levels, but still declines treatment. She has also declined getting any vaccines [facility] Medical History (Updated 01/04/25 @ 14:56 by Saige Grewal MD) Gallstones Fatty liver Hx of ectopic Vaccine refused by patient Chronic insomnia Varicose veins of leg with swelling Depression with anxiety Impaired fasting glucose Morbid obesity due to excess calories Dyslipidemia Elevated C-reactive protein (CRP) Carpal tunnel syndrome Sciatica Arthritis Ectopic Elevated liver enzymes Fibromyalgia HTN (hypertension) Surgical History (Updated 01/04/25 @ 14:56 by Saige Grewal MD) Hx of colonoscopy Hx of unilateral salpingectomy History of carpal tunnel surgery of right wrist History of appendectomy Family History Father HTN (hypertension) Heart disease Mother HTN (hypertension) [place] Brother Substance use disorder Social History Household Members: Spouse Housing: House Are you a primary residential care facility manager to a significant other at home: No Do you presently have visiting nurse or other home services: No Alcohol intake: current Alcohol intake frequency: holidays/special occasions only Patient Tobacco Use Status: Never used Tobacco e-Cigarette/Vaping Use: Never Used Second Hand Smoke Exposure: No service: No Current occupational status: disabled 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 1. Little interest or pleasure in doing things: not at all 2. Feeling down, depressed, or hopeless: not at all 3. Trouble falling or staying asleep, or sleeping too much: not at all 4. Feeling tired or having little energy: not at all 5. Poor appetite or overeating: not at all 6. Feeling bad about yourself - or that you are a failure or have let yourself or your family down: not at all 7. Trouble concentrating on things, such as reading the newspaper or watching television: not at all 8. Moving or speaking so slowly that other people could have noticed. Or the opposite - being so fidgety or restless that you have been moving around a lot more than usual: not at all 9. Thoughts that you would be better off or of hurting yourself in some way: not at all Total score: 0 Depression Screening Interpretation: Negative Depression Screening Done: Yes 20957 - PHQ-9 Billing: Yes Source: Developed by Drs. Tien Rhodes, Roseline Deluna, Leonel Huang and colleagues, with an educational adri from [employer]. Thrive Questionnaire Date Thrive assessed: 05/26/24 I am a: Patient What is your living situation today?: I have a place to live, but I am worried about losing it in the future Within the past 12 months, did the food you bought not last and you didn't have the money to get more?: Never true Within the past 12 months, did you worry whether your food would run out before you got money to buy more?: Often true Do you have trouble paying for medicines?: No Do you have trouble getting transportation to medical appointments?: No Do you have trouble paying your heating and electricity bill?: No Do you have trouble taking care of your child, family member or friend?: No Do you have trouble with day-to-day activities such as bathing, preparing meals, shopping, managing finances, etc.?: Yes Are you currently unemployed and looking for a job?: No Are you interested in more education?: No Please select the resources that you would like help with: None Currently or been in a relationship where the following occur: No concerns reported THRIVE Score: 2 SHANE-7 AMB Questionnaire SHANE-7 Date SHANE - 7 assessed: 06/01/24 Source: Developed by Drs. Tien Rhodes, Roseline Deluna, Leonel Huang and colleagues, with an educational adri from [employer]. Review of Systems Const Denies fatigue, Denies fever(s), Denies headache(s) and Denies weakness Eyes Denies change in vision ENT Denies dizziness, Denies headache(s) and Denies nasal congestion Card Denies chest pain, Denies lightheadedness, Denies palpitations and Denies dyspnea Resp Denies chest congestion, Denies cough, Denies dyspnea and Denies wheezing GI Denies abdominal pain, Denies change in bowel habits and Denies heartburn Denies urinary frequency and Denies dysuria Musc Reports no additional complaints Skin/Breast Denies breast pain, Denies breast mass, Denies lesions and Denies rash Neuro Denies dizziness, Denies headache(s) and Denies weakness Psych Reports no additional complaints Endo Denies fatigue, Denies polydipsia, Denies polyuria and Denies palpitations Vijay/Lymph Denies easy bruising Aller/Immun Denies seasonal rhinorrhea and Denies wheezing Physical exam (Primary Care) Vital Signs: Last Vital Signs Temp 98.1 F 01/04/25 14:06 Pulse 92 01/04/25 14:06 Resp 16 01/04/25 14:06 BP 130/80 01/04/25 14:06 Pulse Ox 94 01/04/25 14:06 Oxygen Delivery Method Room Air 01/04/25 14:06 BMI result Body Mass Index 45.5 BMI Assessment/Plan discussion: High BMI High, discussed plan: lifestyle, weight reduction, dietary and physical activity Tobacco/Smoking Status: Tobacco use Status Tobacco use date assessed 01/04/25 01/04/25 14:10 Patient Tobacco Use Status Never used Tobacco 01/04/25 14:07 Tobacco use type 01/04/25 14:45 e-Cigarette/Vaping Use Never Used 01/04/25 14:07 Depression Screening Interpretation: Negative Thrive Assessment: Date of Thrive Assessment Date Thrive assessed 05/26/24 01/04/25 14:07 Currently or been in a relationship where the following occur: No concerns reported Const General: no acute distress and alert Nutritional Appearance: obese morbidly obese Orientation/consciousness: patient oriented x3 HENMT Head: Yes normocephalic Ears: hearing grossly normal bilaterally, external ears normal, TM's normal bilaterally and EAC's normal General nose exam: Normal external nose present Face and sinus: Yes face symmetric Mouth: Normal oral and palatal mucosa present and moist mucous membranes Eyes General: appearance normal, both eyes and all related structures Neck Other: Supple, no lymphadenopathy, thyroid nonpalpable Chest Breast/axilla palpation: normal palpation of the breasts Resp Auscultation: clear to auscultation bilaterally Cardio Other: S1-S2 present regular rate and rhythm GI Palpation (GI): Soft to palpation, nontender and no guarding Auscultation: normal bowel sounds Other: Sees [facility] General: Yes no CVA tenderness Back/Spine/Pelvis Back: no CVA tenderness and No back tenderness Skin General skin exam: no rashes or lesions noted Neuro General: patient oriented x3, gait normal, tone normal, moves all extremities, Normal light touch and pain sensation, no focal motor deficits and CN's II-XI intact bilaterally Extrem General: Yes full ROM, Yes no joint enlargement, Yes no clubbing, cyanosis or edema, Yes no calf tenderness and Yes normal gait Psych Appearance: grossly normal and well kempt Mental Status: mental status grossly normal Speech and movement: Normal speech and movement present Affect: normal affect Results Reviewed Results Reviewed: Name: Rupinder Meng Age/Sex: 63/F : 1960 Unit#: [id number] Attend Dr: Saige Grewal MD Re05/23/24 Status: DEP REF Location: [facility] Disch: SPEC : [id number] JESSICA: 05/23/24-0 STATUS: COMP REQ : [id number] RECD: 05/23/24-[address]: Sarah Merrill MARZIPAN MAKER-BC COMP: 05/23/24-1228 ENTERED: 05/23/24-[address]: Saige Grewal MD ORDERED: CBC Auto Diff, SLIDE REVIEW Test Result Flag Reference WBC 7.1 4.8-10.8 X10*3/uL RBC 5.31 4.20-5.50 X10*6/uL HGB 15.2 12.0-16.0 g/dl HCT 47.3 H 37.0-47.0 % MCV 89.1 80.0-98.0 fL MCH 28.6 27.0-33.0 pg MCHC 32.1 31.0-35.0 g/dl RDW 14.2 11.0-16.0 % PLT 138 # L 160-400 X10*3/uL MPV 11.0 9.4-12.3 fL Neut Pct Auto 60.0 45-73 % ImGran Pct Auto 0.3 0.0-0.4 % Lymp Pct Auto 31.4 20-40 % Mcpherson Pct Auto 5.1 2-11 % Eos Pct Auto 2.5 0-4 % Baso Pct Auto 0.7 0-2 % NRBC Pct Auto 0.0 0.0-0.2 /100WBC ANC Neut Abs # 4.2 2.0-8.3 x10*3/uL ImGran Abs Auto 0.02 0.00-0.03 X10*3/uL Lymph Abs Auto 2.2 1.2-4.9 X10*3/uL Mcpherson Abs Auto 0.4 0.1-1.2 X10*3/uL Eos Abs Auto 0.2 0.0-0.4 X10*3/uL Baso Abs Auto 0.1 0.0-0.2 X10*3/uL NRBC Abs Auto 0.000 0.0-0.012 X10*3/uL SLIDE REVIEW VERIFIED Name: Rupinder Meng Age/Sex: 64/F : 1960 Unit#: [id number] Attend Dr: Saige Grewal MD Re11/11/24 Status: DEP REF Location: [facility] Disch: SPEC : [id number] JESSICA: 11/11/24 STATUS: COMP REQ : [id number] RECD: 11/11/[address]: Saige Grewal MD COMP: 11/11/24 ENTERED: 11/11/24-[address]: ORDERED: Met Prof Fast, Lipid Panel Test Result Flag Reference Sodium 141 135-145 mmol/L Potassium 4.3 3.3-5.1 mmol/L CL 108 96-108 mmol/L CO2 22 22-29 mmol/L Gap 15 12-20 BUN 11 9-16 mg/dL Creat 0.71 0.5-1.4 mg/dL eGFR > 60 Chronic Kidney Disease: Estimated GFR < 60 mL/min/1.73m2 Severe Kidney Disease: Estimated GFR < 15 mL/min/1.73m2 FBS 128 H 60-99 mg/dL A fasting glucose of 126 mg/dl or greater on more than one occasion is considered diagnostic of diabetes. CA 9.3 8.4-10.2 mg/dL Triglyceride 126 <150 mg/dL Desirable Triglyceride: less than 150 mg/dL Borderline High Triglyceride 150-199 mg/dL High Triglyceride: 200-499 mg/dL Very High Triglyceride: greater than or equal to 5OO mg/dL Cholesterol 263 H <200 mg/dL Desirable Cholesterol: less than 200 mg/dL Borderline High Cholesterol: 200-239 mg/dL High Cholesterol: greater than 239 mg/dL LDL Calculated 192 H <100 mg/dL Desirable LDL: less than 100 mg/dL Near Optimal/Above Optimal LDL: 110-129 mg/dL Borderline High LDL: 130-159 mg/dL High LDL: 160-189 mg/dL Very High LDL: greater than or equal to 190 mg/dL HDL 46 >40 mg/dL Desirable HDL: greater than 40 mg/dL Note: This HDL assay may give artificially low results in patients with liver disease. Laboratory Tests 11/11/24 11:57 Estimat Average Glucose 131 Hemoglobin A1c % 6.2 H Calcium 9.3 Coding Level of Care Code Est Pt Prev Care 40-64y(41253) Diagnoses Annual visit for general adult medical examination with abnormal findings Z00.01 Dyslipidemia E78.5 Impaired fasting glucose R73.01 Morbid obesity due to excess calories E66.01 Vaccine refused by patient Z28.20 Additional Codes PHQ-9 - 48729 - PHQ-9 Billing: Yes ([id number]) Assessment & Plan Assessment & Plan (1) Annual visit for general adult medical examination with abnormal findings: Code(s): Z00.01 - Encounter for general adult medical examination with abnormal findings Plan: Recent fasting lab results reviewed with patient.. Recommended dental visit every 6 months and regular eye exams, at least every 2 years. Take adequate calcium in diet and vitamin-D 3 at 2000 IU per cap once a day, in addition to weight-bearing exercises to help maintain good muscle tone and weight control. Instructed to do self-breast exam, and recommended to get yearly mammogram, but patient declined, last mammogram was normal in 2022. Last bone density scan was in 2022 which showed normal results. Up-to-date with her colon cancer screening done earlier this year with removal of a serrated polyp and hyperplastic polyp, repeat colonoscopy due again as per Dr. Wagner in 2026. Patient does not want to get any vaccines. Referred back to [facility] for routine Pap and pelvic exam (2) Dyslipidemia: Code(s): E78.5 - Hyperlipidemia, unspecified Category: Medical Plan: Discuss results of recent fasting lab results with patient which showed marked elevation in her LDL cholesterol on change from previous visits. Patient however does not want to be started on statins, stressed importance of getting cholesterol levels under good control, reinforced importance of following a low- cholesterol diet, getting regular exercise at least 15 minutes of moderate intensity exercise on a regular basis. Will repeat another fasting lipid panel in May 2025 (3) Impaired fasting glucose: Code(s): R73.01 - Impaired fasting glucose Category: Medical Plan: Your previous fasting blood sugars were elevated above 100 mg/dL. Impaired glucose metabolism increases the risk for developing diabetes mellitus type 2, as well as heart attack and stroke later on. Lifestyle changes that promotes weight loss, healthy eating habits, and regular exercise are important, and can prevent the progression to diabetes (4) Morbid obesity due to excess calories: Code(s): E66.01 - Morbid (severe) obesity due to excess calories Category: Medical Plan: Patient states that she has been taking some weight loss supplements which she bought [id number]. Reinforced importance of still continuing to adhere to a healthy diet and getting at least 15 minutes of moderate intensity exercise on a daily basis. (5) Vaccine refused by patient: Code(s): Z28.20 - Immunization not carried out because of patient decision for unspecified reason Category: Medical Plan: Patient refused all recommended vaccines Orders: Referrals [facility] Referral Z12.4 - Encounter for screening for malignant neoplasm of cervix
== END 2025-01-04 14:41 | disposition home or self-care (01) ==
LOC: HO.HMCC 13:51
PROVIDERS: PCP Internal Medicine; Visit Provider Internal Medicine
DX: Z00.01 Encounter for general adult medical examination with abnormal findings (principal); E78.5 Hyperlipidemia, unspecified; E66.01 Morbid (severe) obesity due to excess calories; Z68.42 Body mass index [BMI] 45.0-49.9, adult; R73.01 Impaired fasting glucose; Z28.20 Immunization not carried out because of patient decision for unspecified reason

== ENCOUNTER → 2025-01-04 13:50 | Outpatient (BNVA) | payer OTHER, SELFPAY | PROVIDERS: PCP Internal Medicine; Visit Provider Internal Medicine | DX: Z00.01 Encounter for general adult medical examination with abnormal findings (principal); E66.01 Morbid (severe) obesity due to excess calories; E78.5 Hyperlipidemia, unspecified; G47.00 Insomnia, unspecified; R73.03 Prediabetes; R73.01 Impaired fasting glucose; Z68.42 Body mass index [BMI] 45.0-49.9, adult | CPT/HCPCS: 96127; 99396 ==